=== PATIENT | female | born 1980 | race Caucasian/White ===

== ENCOUNTER 2022-12-18 09:40 | Emergency (ER) | payer BC, SELFPAY ==
[2022-12-18 09:43] VITALS: BP 148/106; PULSE 101; RESP 18; TEMP 37.3; O2SAT 100
[2022-12-18 10:06] LABS: Basophils Percent Auto 0.3 % (0.2-1.2); Eosinophils Percent Auto 0.6 % (0-4.4); Hematocrit 41.2 % (37.0-47.0); Hemoglobin 14.2 g/dL (12.0-15.0); Immature Granulocyte Absolute 0.01 K/mm3 (0.00-0.031); Immature Granulocyte Percent A 0.3 % (0-0.5); Lymphocytes Absolute Auto 0.49 K/mm3 (0.9-3.2); Mean Corpuscular HGB Conc 34.5 g/dl (32-36); Mean Corpuscular Hemoglobin 31.7 pg (26-34); Monocytes Absolute Auto 0.5 K/mm3 (0.1-0.6); Monocytes Percent Auto 15.1 % (2.6-8.5); Neutrophils Absolute Auto 2.5 K/mm3 (1.3-6.7); Neutrophils Percent Auto 69.7 % (45.5-73.1); Platelet Count Result 199 k/mm3 (150-375); Red Blood Count 4.48 M/mm3 (4.2-5.4); Red Cell Distribution Width 13.2 % (11.5-14.5); White Blood Count 3.5 K/mm3 (4.5-10.0)
--- NOTE | 2022-12-18 10:21 | PC.NURSE ---
Pt refuses bp measurement states you cannot use my left arm I have a nexplanon and states You can't put it on my right arm it hurts
--- NOTE | 2022-12-18 10:35 | ED.ABDPAIN ---
HPI - Abdominal Pain General Chief Complaint: Abdominal Pain Stated Complaint: mult. complaints - lower abd pain and facial pain Time Seen by Provider: 12/18/22 10:05 Source: patient Mode of arrival: ambulatory Limitations: no limitations History of Present Illness HPI narrative: This is a 42 year old female that presents to the ER for multiple complaints. Reports pain all over . Reports what largely brought her in though was abdominal pain. Reports a sharp mid-lower abdominal pain. Reports associated fever and nausea. Reports diffuse myalgias. Reports rhinorrhea and congestion. Reports otalgia. Reports a cough. Denies dysuria. Related Data Allergies Allergy/AdvReac Type Severity Reaction Status Date / Time codeine Allergy Anaphylaxis Verified 12/18/22 09:59 mushroom Allergy Unknown Verified 12/18/22 10:00 Review of Systems Review of Systems: CONSTITUTIONAL: Reports fever ENT: Reports rhinorrhea, congestion, sore throat, and otalgia. CARDIOVASCULAR: Denies chest pain, or edema. RESPIRATORY: Reports cough. Denies dyspnea. GASTROINTESTINAL: Reports abdominal pain, nausea. Denies vomiting, or diarrhea. GENITOURINARY: Denies dysuria or hematuria. SKIN: Denies rash MUSCULOSKELETAL: Reports myalgia. All systems reviewed & are unremarkable except as noted in HPI and below PMFSH Past Medical History Medical History (Updated 12/18/22 @ 11:12 by Diana Lester PA-C) No active medical problems Social History Social History (Updated 12/18/22 @ 10:41 by Diana Lester PA-C) Alcohol intake: current Alcohol use details: rarely Exam Narrative: GENERAL: Well-appearing, well-nourished, and in no acute distress. HEAD: Normocephalic, atraumatic. EYES: PERRLA and EOMI. ENT: Nares clear, no rhinorrhea or epistaxis. Mucous membranes moist. Oropharynx without tonsillar hypertrophy exudate or other lesions. Bilateral TMs pearly blanca non-bulging NECK: Supple. No adenopathy or masses. CHEST: Clear to auscultation. No respiratory distress. No wheezes rales or rhonchi HEART: Regular rate and rhythm. No murmur heard. Normal peripheral pulses. ABDOMEN: Soft, nondistended, normal active bowel sounds. Tender to palpation throughout the mid to lower abdomen, without guarding. No CVA tenderness EXTREMITIES: Normal range of motion. No edema. SKIN: Warm, dry, no rash. NEURO: No focal deficits. Alert and oriented x3. PSYCH: Normal mood and affect Course Course Emergency Course: Patient has eloped after being seen by myself before work-up was finished Vital Signs Vital signs: Vital Signs Temperature 99.1 F 12/18/22 09:43 Pulse Rate 101 H 12/18/22 09:43 Respiratory Rate 18 12/18/22 09:43 Blood Pressure 148/106 H 12/18/22 09:43 Pulse Oximetry 100 12/18/22 09:43 Oxygen Delivery Room Air 12/18/22 09:43 Temperature 99.1 F 12/18/22 09:43 Pulse Rate 101 H 12/18/22 09:43 Respiratory Rate 18 12/18/22 09:43 Blood Pressure 148/106 H 12/18/22 09:43 Pulse Oximetry 100 12/18/22 09:43 Oxygen Delivery Room Air 12/18/22 09:43 MDM - Abdominal Pain MDM Narrative Medical decision making narrative: Patient presents to the emergency department with multiple complaints. Reporting pain all over, but her abdominal pain was what brought her in for evaluation. She is afebrile and nontoxic-appearing. Further work-up was ordered. Pending this she walked out after being seen by myself. Differential Diagnosis Differential diagnosis: Likely abdominal pain, acute appendicitis, calculus of kidney, constipation, diverticulitis and small bowel obstruction Lab Data Attestation: I reviewed the patient's lab results. 12/18/22 10:01 12/18/22 10:01 Labs: Lab Results 12/18/22 12/18/22 12/18/22 Range/Units 10:01 10:09 10:45 WBC 3.5 L (4.5-10.0) K/mm3 RBC 4.48 (4.2-5.4) M/mm3 Hgb 14.2 (12.0-15.0) g/dL Hct 41.2 (37.0-47.0) % MCV 92.0 (80-100) fl
[2022-12-18 10:46] LABS: Appearance Urine Clear (Clear); Bacteria Urine Rare /hpf; Bilirubin Urine Negative (Negative); Blood Urine 3+ (Negative); Color Urine Dark Yellow (Yellow); Glucose Urine UA Negative (Negative); Ketones Urine Trace mg/dL (Negative); Leukocyte Esterase Ur Trace LEU/UL (Negative); Nitrate Urine Negative (Negative); Non Pathogenic Casts 0-2; Protein Urine 2+ mg/dL (Negative); Specific Grav Ur 1.025 (1.001-1.035); Squamous Epithelial Cell Urine Moderate /hpf (Few)
[2022-12-18 10:49] LABS: Add Urine Microscopic? YES
[2022-12-18 11:04] LABS: Barbiturate Screen Urine Negative (Negative); Benzodiazepines Screen Urine Negative (Negative)
[2022-12-18 11:12] LABS: Cannabinoid Screen Urine Positive (Negative); Cocaine Screen Urine Negative (Negative); Methadone Screen Urine Negative (Negative); Opiate Screen Urine Negative (Negative); Phencyclidine Screen Urine Negative (Negative)
[2022-12-18 11:15] LABS: Alanine Aminotransferase 25 U/L (6-35); Alkaline Phosphatase 82 U/L (38-126); Anion Gap 2 mmol/L (8-16); Aspartate Amino Transferase 27 U/L (14-36); Bilirubin,Total 0.4 mg/dL (0.2-1.3); Blood Urea Nitrogen 8 mg/dL (7-17); Calcium 8.7 mg/dL (8.4-10.2); Carbon Dioxide 29 mmol/L (22-30); Chloride 101 mmol/L (98-107); Estimated CRCL calculation 104 ml/min; Estimated Glomerular Filt Rate > 60; Glucose 86 mg/dL (65-110); Lipase 68 U/L (23-300); Potassium 3.7 mmol/L (3.4-5.0); Sodium 132 mmol/L (137-145)
[2022-12-18 11:17] LABS: Ethanol < 10 mg/dL (<10)
[2022-12-18 11:20] LABS: Creatine Kinase 73 U/L (30-135)
[2022-12-18 11:23] LABS: Monoscreen Negative (Negative); Negative Monotest Control Negative (Negative); Positive Monotest Control Positive (Positive)
--- NOTE | 2022-12-18 11:25 | PC.NURSE ---
11:15 pt eloped out of department. IV DC'ed prior to pt leaving.
[2022-12-18 11:26] LABS: Strep Group A RT-PCR NOT DETECTED (Negative)
[2022-12-18 11:39] LABS: Influenza A QL RT-PCR Positive (Negative); Influenza B QL RT-PCR Negative (Negative); SARS-CoV-2 RNA PCR Negative (Negative)
[2022-12-18 12:03] LABS: Amphetamine Screen Urine Positive (Negative)
== END 2022-12-18 11:15 | disposition left against medical advice (07) ==
PROVIDERS: Emergency Medicine; Emergency Provider Physician Assistant
DX: R10.30 Lower abdominal pain, unspecified (principal); Z20.822 Contact with and (suspected) exposure to COVID-19
CPT/HCPCS: 36415; 80053; 80307; 81001; 81025; 82550; 83690; 85025; 86308; 87086; 87088; 87636; 87651; 99283

== ENCOUNTER 2024-10-29 15:05 | Emergency (ER) | payer BC, SELFPAY ==
--- NOTE | ~2024-10-29 | XR_ITS ---
CHEST RADIOGRAPH, PA AND LATERAL CLINICAL HISTORY: Abdominal pain. COMPARISON: None available TECHNIQUE: PA and lateral views of the chest. FINDINGS The cardiomediastinal silhouette is enlarged. Hazy opacification of the left hemidiaphragm which may be secondary to overlying soft tissues, as no effusion is detected on lateral view. The remainder of the lungs are clear. IMPRESSION: No focal infiltrate or effusion. Reviewed, dictated and finalized at location A.
--- NOTE | ~2024-10-29 | CT_ITS ---
CT abdomen pelvis w con Ordering provider: Davonte Vallejo MD History: 43 years Female with . right sided AP, recent . Comparison: None. Technique: CT abdomen and pelvis with IV and without oral contrast. Automated exposure control and it erative reconstruction technique were employed. The dose-length product was 1576.77 mGy-cm. 100 mL Om nipaque 350 was given IV. Findings: VISUALIZED LOWER CHEST: Subsegmental atelectatic changes in the lung bases. UPPER ABDOMINAL ORGANS: Liver: Hepatomegaly. Gallbladder: Normal. Spleen: Normal. Stomach/duodenum: Normal. Pancreas: Normal. Adrenals: Normal. Kidneys: Normal. PELVIC ORGANS: The bladder is underfilled. Enlarged uterus which is normal for stage. BOWEL AND MESENTERY: Colon: No evidence of diverticulitis. Fecal material is loaded in the colon.. No evidence of appendic itis. Small Bowel: Normal. No obstruction. Peritoneum/mesentery: No free air or free fluid. No mesenteric lymphadenopathy. RETROPERITONEUM: Mild atheromatous disease of the distal abdominal aorta and right iliac artery. No retroperitoneal lymphadenopathy. MUSCULOSKELETAL: Superficial soft tissues: Edema in the subcutaneous tissues with postoperative changes in the anterio r abdominal wall. Small fat-containing umbilical hernia is noted. Otherwise, The superficial soft tis sues are normal. Bones: Normal spine. IMPRESSION: 1. No evidence of appendicitis, diverticulitis or intestinal obstruction. 2. Constipation. 3. Enlarged uterus. 4. Hepatomegaly. Reviewed, dictated and finalized at location A.
[2024-10-29 15:07] VITALS: BP 142/95; PULSE 107; RESP 18; TEMP 36.4; O2SAT 100
--- OUTSIDE RECORDS SUMMARY | 2024-10-29 15:08 | XMS_ITS | Clinical Summary ---
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[employer] Gender Identity Not on file Sexual Orientation Not on file Plan of Treatment Health Maintenance Due Date Last Done Comments Hepatitis C Virus (HCV) Screening 1982 TdaP Immunization 1982 Hepatitis B Immunization (1 of 3 - 19+ 3-dose series) 2001 Pap Smear 12/14/2003 Cervical Cancer Screening (CCS) 2012 HPV/Cotest 2012 Discussion re Starting/Frequency of Mammograms 2022 Influenza Immunization (#1) 2024 05/08/2010 SARS-COV-2 Immunization ( - season) 2024 04/05/2021 Respiratory Syncytial Virus (RSV) Immunization (Adult) (1 - 1-dose 75+ series) 2057 DTaP/Tdap/Td Immunization Discontinued 1997, 08/14/1987, 08/13/1983, Additional history exists Meningococcal Immunization (ACWY) Aged Out No longer eligible based on patient's age to complete this topic Pneumococcal Immunization Combined Aged Out No longer eligible based on patient's age to complete this topic Rotavirus Immunization Aged Out No lo nger eligible based on patient's age to complete this topic
--- NOTE | 2024-10-29 15:35 | ECG_ITS ---
Test Date: 2024-10-29 15:58:08 Measurements Intervals [place] Rate: 101 P: 47 IA: 157 QRS: 73 QRSD: 86 T: 46 QT: 341 QTc: 443 Interpretive Statements SINUS TACHYCARDIA ABNORMAL RHYTHM ECG No previous ECG available for comparison Electronically Signed On 10-30-2024 17:06:22 CDT by Jagjit Marquis M.D.
--- NOTE | 2024-10-29 15:58 | ED_ITS ---
HPI - Abdominal Pain General Chief Complaint: Abdominal Pain Stated Complaint: RUQ pain, 4 days post [id number] swelling Time Seen by Provider: 10/29/24 15:44 History of Present Illness HPI narrative: Patient is a 43-year-old female who presents ER with multiple complaints. Main complaint is right-sided abdominal pain. Chronic throughout her . Recent delivery 4 days ago after emergency due to placental abruption. Baby is currently in the NICU at [facility]. Patient continues to have lochia. She has developed new lower extremity edema. Has persistent discomfort along the right side of her abdomen your member abdomen than the lower abdomen. She also has concerns about disruption in her wound on the right side. No drainage or blood that she has noticed. Patient is attempting to breastfeed but has not been able to get any milk to come out. Related Data Allergies Allergy/AdvReac Type Severity Reaction Status Date / Time codeine Allergy Anaphylaxis Verified 12/18/22 09:59 mushroom Allergy Unknown Verified 12/18/22 10:00 Review of Systems 2 Review of Systems: All systems reviewed & are unremarkable except as noted in HPI and below Constitutional: Constitutional: Reports no additional constitutional complaints ENT: Reports system reviewed and no additional complaints, except as documented Cardiovascular: Cardiovascular: Reports no additional cardiovascular complaints Respiratory: Respiratory: Reports no additional respiratory complaints Gastrointestinal: Gastrointestinal: Reports no additional gastrointestinal complaints [facility] Surgical History Surgical History (Updated 10/29/24 @ 16:00 by Davonte Vallejo MD) History of tonsillectomy History of section Social History Social History (Updated 12/18/22 @ 10:41 by Diana Lester PA-C) Alcohol intake: current Alcohol use details: rarely Exam 2 Narrative: GENERAL: Well-appearing, well-nourished, and in no acute distress. HEAD: Normocephalic, atraumatic. ENT: Mucous membranes moist. CHEST: Clear to auscultation. No respiratory distress. HEART: Regular rate and rhythm. Normal peripheral pulses. ABDOMEN: Soft, mild right-sided tenderness in the upper and lower quadrant, no discoloration of the abdominal wall, nondistended. Surgical wound be normal appearing. EXTREMITIES: Normal range of motion. +1 edema. SKIN: Warm, dry, no rash. NEURO: Alert and oriented x3. PSYCH: Normal mood and affect. Course Course Emergency Course: Patient resting comfortably and is already got herself dressed because she heard she was constipated. Discussed with her that she has some abnormalities in her liver enzymes and her blood pressure is elevated I would like to touch base with the OB group over at [facility] as she could be developing some preeclampsia. I do not have baseline blood pressures for her. There is no protein in her urine her platelets are normal. BNP slightly elevated. 190: I have just gotten off the phone with Dr. Machado with MFM at [facility]. The patient presented has history of preeclampsia with severe features. We have discussed lab and imaging results as well as patient presentation and exam. We would recommend the patient receive nifedipine 30 mg XL once daily. They will contact the patient for follow-up next week as her originally scheduled follow-up of 11/11/2024 is too far out. Patient has been educated that when talking to nurses at the NICU that they can help her get to the women's assessment center if she is having any additional issues in feel she needs to be evaluated. Patient and her are being quite hostile and are wanting to leave the emergency department as she does not feel like she has answers to her abdominal pain. Vital Signs Vital signs: Vital Signs Temperature 97.6 F 10/29/24 15:07 Pulse Rate 107 H 10/29/24 15:07 Respiratory Rate 18 10/29/24 15:07 Blood Pressure 142/95 H 10/29/24 15:07 Pulse Oximetry 100 10/29/24 15:07 Oxygen Delivery Room Air 10/29/24 15:07 Temperature 98.0 F 10/29/24 17:51 Pulse Rate 103 H 10/29/24 17:51 Respiratory Rate 20 10/29/24 17:51 Blood Pressure 141/87 H 10/29/24 17:51 Pulse Oximetry 100 10/29/24 17:51 Oxygen Delivery Room Air 10/29/24 15:07 MDM - Abdominal Pain Lab Data 10/29/24 16:04 10/29/24 16:04 Labs: Lab Results 10/29/24 10/29/24 10/29/24 Range/Units 16:04 16:31 16:39 WBC 13.3 H (4.5-10.0) K/mm3 RBC 3.38 L (4.2-5.4) M/mm3 Hgb 10.7 L D (12.0-15.0) g/dL Hct 33.0 L (37.0-47.0) % MCV 97.6 (80-100) fl MCH 31.7 (26-34) pg MCHC 32.4 (32-36) g/dl RDW 14.7 H (11.5-14.5) % Plt Count 296 (150-375) k/mm3 MPV 10.2 (7.4-10.4) fl Immature Gran % (Auto) Not Reportable Neut % (Auto) Not Reportable Lymph % (Auto) Not Reportable [place] % (Auto) Not Reportable Eos % (Auto) Not Reportable Baso % (Auto) Not Reportable Lymph # (Auto) Not Reportable [place] # (Auto) Not Reportable Eos # (Auto) Not Reportable Baso # (Auto) Not Reportable Abs Immat Gran (auto) Not Reportable Absolute Neuts (auto) Not Reportable Absolute Nucleated RBC Not Reportable Total Counted 100 Neutrophils % (Manual) 69 (46-73) % Band Neutrophils % 1 (0-6) % Lymphocytes % (Manual) 18 (18-44) % Monocytes % (Manual) 9 (3-9) % Eosinophils % (Manual) 3 (0-4) % Basophils % (Manual) 0 (0-1) % Nucleated RBC % Not Reportable Abs Neuts (Manual) 9.31 H (1.7-7.2) K/mm3 Abs Lymphs (Manual) 2.39 (1.1-4.5) K/mm3 Abs Monocytes (Manual) 1.19 H (0.1-0.90) K/mm3 Absolute Eos (Manual) 0.39 (0.02-0.50) K/mm3 Abs Basophils (Manual) 0.00 (0.0-0.1) K/mm3 Nucleated RBCs 2 % Atypical Lymphocytes Present Platelet Estimate Adequate (Adequate) Polychromasia 1+ Anisocytosis 1+ Schistocytes None seen Sodium 135 L (137-145) mmol/L Potassium 3.9 (3.4-5.0) mmol/L Chloride 103 (98-107) mmol/L Carbon Dioxide 25 (22-30) mmol/L Anion Gap 7 (4-12) mmol/L BUN 11 (7-17) mg/dL Creatinine 0.85 (0.7-1.0) mg/dL Estim Creat Clear Calc 98 ml/min Estimated GFR > 60 (59 - ) Glucose 89 (65-110) mg/dL Calcium 8.9 (8.4-10.2) mg/dL Total Bilirubin 0.3 (0.2-1.3) mg/dL AST 78 H (14-36) U/L ALT 69 H (6-35) U/L Alkaline Phosphatase 115 (38-126) U/L NT-Pro-B Natriuret Pep 429 H (19.9-100) pg/mL Total Protein 7.0 (6.3-8.2) g/dL Albumin 3.3 L (3.5-5.1) g/dL Lipase 46 (23-300) U/L Urine Color Yellow (Yellow) Urine Appearance Clear (Clear) Urine pH 7.5 (5.0-9.0) Ur Specific [place] 1.013 (1.001-1.035) Urine Protein Negative (Negative) mg/dL Urine Glucose (UA) Negative (Negative) mg/dL Urine Ketones Negative (Negative) mg/dL Ur Blood (Man) 3+ H (Negative) Urine Nitrate Negative (Negative) Urine Bilirubin Negative (Negative) Urine Urobilinogen 0.2 (<2.0) mg/dL Leukocyte Esterase Rfl Trace H (Negative) MAGALIE/UL Urine RBC >100 H (0-2) /hpf Urine WBC 0-5 (0-3) /hpf Ur Squamous Epith Cells Occasional (Few) /hpf Urine Bacteria None seen /hpf Urine Casts 0-2 POC Urine HCG, Qual Negative (Negative) Imaging Data Radiologist's impression: ITS Impressions Chest X-Ray 10/29/24 16:15 IMPRESSION: No focal infiltrate or effusion. Abdomen/Pelvis CT 10/29/24 17:05 IMPRESSION: 1. No evidence of appendicitis, diverticulitis or intestinal obstruction. 2. Constipation. 3. Enlarged uterus. 4. Hepatomegaly. 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 They will reach out to you to schedule a close follow-up appointment for next week. You are to start taking nifedipine 30 mg XL daily. Go to limits assessment center at [facility] if you have any additional issues. Patient Language: Barbadian Prescriptions: New nifedipine 30 mg tablet extended release 30 mg PO DAILY Qty: 10 0RF docusate sodium [Colace] 100 mg capsule 100 mg PO BID Qty: 14 0RF Follow-up/Referrals: [facility]aternal Medicine [Other] - 1 Week PHYSICIAN NOT ON STAFF,NONSTAFF [Primary Care Provider] -
[2024-10-29 16:14] LABS: Hemoglobin 10.7 g/dL (12.0-15.0); Mean Corpuscular HGB Conc 32.4 g/dl (32-36); Mean Corpuscular Hemoglobin 31.7 pg (26-34); Mean Corpuscular Volume 97.6 fl (80-100); Mean Platelet Volume 10.2 fl (7.4-10.4); Platelet Count Result 296 k/mm3 (150-375); Red Blood Count 3.38 M/mm3 (4.2-5.4); Red Cell Distribution Width 14.7 % (11.5-14.5); White Blood Count 13.3 K/mm3 (4.5-10.0)
[2024-10-29] MEDS: HYDROmorphone HCL INJ (*CRX) 2 MG/ML VIAL 0.5 MG IV PUSH (16:22)
[2024-10-29] MEDS: ONDANSETRON INJ 4 MG/2 ML VIAL IV PUSH (16:22)
--- OUTSIDE RECORDS SUMMARY | 2024-10-29 16:24 | XMS_ITS | Clinical Summary ---
Author Organization [facility] Address [address] [place] [address] Care Team Providers Care Sterile Proc Tech Name Role Phone No, Physician Primary Care Provider [phone] Allergies Active Allergy Reactions Criticality Noted Date Comments Codeine Anaphylaxis High 10/21/2024 Mushroom Anaphylaxis High 10/21/2024 Medications comb no.42-folic acid 1.4 mg tablet,chew,IR & DR,biphase Take by mouth daily Active acetaminophen 500 mg capsuleIndicati ons:Pain Take 2 capsules (1,000 mg total) by mouth every 6 (six) hours 60 tablet 5 Active docusate sodium (COLACE) 100 mg capsuleIndicati ons:constipatio n,Stool Softener Take 1 capsule (100 mg total) by mouth 2 (two) times a day 60 capsule 5 Active polyethylene glycol (MIRALAX) 17 gram/dose bulk powderIndicatio ns:constipation Take 17 g by mouth daily 517 g 5 Active senna (SENOKOT) 8.6 mg tabletIndicatio ns:constipation Take 1 tablet by mouth 2 (two) times a day 60 tablet 5 10/29/19 26 Active ibuprofen (ADVIL,MOTRIN) 600 mg tabletIndicatio ns:Cramps Take 1 tablet (600 mg total) by mouth every 6 (six) hours 60 tablet 5 Active oxyCODONE (ROXICODONE) 5 mg immediate release tabletIndicatio ns:Pain Take 1 tablet (5 mg total) by mouth every 3 (three) hours as needed for pain 12 tablet 5 Active aspirin 81 mg enteric coated tablet Take 2 tablets (162 mg total) by mouth daily 10/29/19 25 Discontinu ed(Stop Taking at Discharge) Active Problems Problem Noted Date Diagnosed Date Placental abruption in third trimester 5 Encounter for routine follow-up 10/25 Overview (10/28/2024): # ID: Afebrile. No signs/symptoms of infection. #Upper respiratory symptoms: respiratory swab pending. # Heme: Hgb 12.1> QBL 1360 mL. Hemodynamically stable. POD1 Hgb 10.8 # CV/Pulm: Pre-eclampsia without severe features. Currently on no meds. Asymptomatic. Enrolled in remote BP monitoring. Text received # GI/: Tolerating PO. Voiding spontaneously. Persistent RUQ pain which she had prior to delivery. RUQ ultrasound 09/09/2024. No cholelithiasis or acute cholecystitis. Mild hepatic steatosis. Patient was scheduled for an MRI outpatient on 10/29, but per the patient was discontinued. MRI ordered. # Pain: incisional pain improving with above regimen. See above for RUQ pain. # Carpal tunnel: OT ordered for wrist splints. For additional supportive measures. # MOC: Consents signed at OSH for tubal, records not available at admission. Patient states partner has had a vasectomy. # MOF: . Urine drug screen: Verbal Consent Obtained. # Post DVT prophylaxis: The patient has the following MAJOR risk factors BMI >/= 40 and the following MINOR risk factors delivery. enoxaparin 40 mg BID ordered for VTE prophylaxis. # Disposition: Follow up task sent to [facility] scheduling pool for appointments in 2 weeks. They are enrolled in remote blood pressure monitoring for their BP check. Desires discharge home today. Pending MRI Abdominal pain complicating 10/22/2024 Overview (10/22/2024): History RUQ pain throughout the that the patient localizes to the skin. LFTs normal, RUQ US with no cholelithiasis or sonographic evidence for acute cholecystitis. Mild hepatic steatosis. Exam with allodynia of overlying skin, no palpable mass Given duration of symptoms, unlikely to be related to preeclampsia diagnosis. Will follow-up imaging studies Plan [] Abdominal MRI ordered by primary scheduled 10/29 (under patient's other chart ) Excessive growth affec ting management of in third trimester 10/22/2024 Overview (10/22/2024): Plan [] Serial growth ultrasounds [] Shoulder dystocia counseling if patient is a candidate for vaginal (currently with previa) Polyhydramnios in third trim arminda, not applicable or unspecified fetus 10/22/2024 Overview (10/22/2024): History - Diagnosed 10/21/24 by MATEO 25.3 Counseling Discussed with patient that polyhydramnios is an abnormal increase in amniotic fluid volume and complicates 1-2% of ndiaye pregnancies.In twin gestations, polyhydramnios is more common and occurs primarily due to complications of monochorionic placentation. Although mild polyhydramnios is most commonly idiopathic, the 2 most common pathologic causes of polyhydramnios are maternal diabetes mellitus and anomalies. Other causes of polyhydramnios include congenital infection and alloimmunization. Idiopathic polyhydramnios accounts for approximately 60-70% of cases of polyhydramnios. The degree of polyhydramnios is associated with higher likelihood of an underlying anomaly. Polyhydramnios may resolve in up to 1/3 of cases when mild. Plan [] Genetics: declines [] Serial assessment of MATEO AMA (advanced maternal age) multigravida 35+, third trimester 10/19/2024 Overview (10/22/2024): Age at JEAN PAUL: 44 Counseling 10/22/2024: We discussed that advanced maternal age (AMA) is associated with increased risks of spontaneous , aneuploidy, gestational diabetes, and hypertensive disorders of . Additionally, we discussed the added risks for individuals over the age of 40 years, including growth restriction and stillbirth. We discussed genetic screening and diagnostic testing options, as well as the risks and benefits of each. For the increased risk of preeclampsia, we recommend starting low dose aspirin at 12 weeks daily if other moderate risk factors are present. Maternal age-related risks of aneuploidy with an age of 44 at term include a 1:54 risk of trisomy 21 and a 1:38 risk of any chromosomal abnormality. Plan: [x] Genetic screening plan: declines s/p counseling [x] Low dose ASA starting at 12 weeks Obesity complicating [facility] 10/19/2024 Overview (10/22/2024): Pre- BMI: >40 Counseling 10/22/2024: Obesity in (BMI >30) is associated with increased risks. Maternal risks include higher rates of preeclampsia, gestational diabetes, and section due to labor abnormalities. risks include anomalies, growth abnormalities ( growth restriction and macrosomia), and stillbirth. Maternal BMI can impact the ability to monitor the heart rate comprehensively during labor and delivery. Recommended weight gain is a total of 11-20 lbs, with 1-4 lbs in the 1st trimester and 0.5 lb/week in the 2nd and 3rd trimesters. Plan: [x] Low dose ASA starting at 12 weeks [] Specialized anatomic survey at 18-22 weeks- incomplete [] Growth ultrasounds, testing, and delivery timing per recommendations for preeclampsia Supervision of high-risk , [facility] ter 10/19/2024 Overview (10/22/2024): [] OB consult only, [x] Co-management vs. [] Full MFM Care; [] Red Team [] Blue Team Referring Provider: Génesis Melara [phone] [] or Medicare Insurance [x] Dating Criteria: US 08/16/24 with JEAN PAUL 12/29/24 [x] Labs: Rh [A+], Ab [negative], Rubella [immune], HIV [non-reactive], HepBSAg [non-reactive], HepBSAb [not done], HepBCAb [not done], RPR [non- reactive], Hep C [non-reactive], Varicella [positive], GC/CT [negative/negative] [] Aneuploidy Screening: declines [] Carrier Screening: declines [x] Hgb electrophoresis: 08/12/24: normal phenotype [x] CBC/Hgb: 12.9/37.9/plt 237 [] Early 1hr GTT (if indicated): [x] UCx: 08/12/24: no growth [] Pap: collected 10/22 [x] LD ASA (if indicated): [] EPDS [ ]; PNBHS referral (if indicated): 2nd Trimester [] Anatomy ultrasound: [x] CBC/1hr gtt at 24-28wks: 10/12/24: 13.6/40.4/plt 237, GTT 87, RPR [non- reactive], HIV [non-reactive] [] Rhogam at 28 wks (if Rh neg): 3rd Trimester [] CBC/HIV/RPR/T&S: [] GBS: [] GC/CT (if indicated): [] testinx weekly Counseling [] MOD: TBD (previa) [] Place of delivery: [facility] [] Epidural: desires [] Accepts Blood Products: [] Stop ASA: [] MOC: desires BTL if she requires CS, has had vasectomy [] Method of feeding: breast [] Commercial Drafter (specifically which provider): [] PP Depression Discussed: [] PP visits scheduled: Vaccines [] Flu Shot (Feb-May): [] COVID vaccine: [] Tdap (27-36wks): please discuss at next visit [] RSV vaccine (32-36wks): [] PP HPV vaccine counseling (<=26 yo): Marginal placenta previa 10/19/2024 Overview (10/22/2024): Placenta previa persistent on US 10/31/24 Plan [] Re-assess placental location at next growth US Pre-eclampsia affecting , antepartum Overview (10/22/2024): Elevated blood pressures at visits 09/21/24, 10/14/24, 10/21/24 All other blood pressures outside of and <20 weeks normotensive UPC 0.643 10/14/24 (no baseline available Counseled patient that her newly elevated blood pressures and proteinuria in the third trimester in the absence of a diagnosis of chronic hypertension is most consistent with the diagnosis of preeclampsia. We reviewed the signs and symptoms of preeclampsia and gave the patient hospital precautions. She has a blood pressure cuff at home that she will use daily. We reviewed the plan below: Plan - serial growth ultrasounds q3 weeks - weekly visits with CBC/CMP - Twice weekly testing - Delivery at 37 weeks (or sooner if indicated) Encounters Date Type Department Care Team Description 10/29/2024 Encounter [facility] [address] [place] [address] 10/25/2024 6:00 PM CDT - 10/25/2024 8:30 PM CDT Surgery [address] [phone] Eufemia Dean MD SECTION 10/25/2024 5:50 PM CDT Anesthesia Event [address] [address] Sommer Torres MD Johnson, Christine Anne, CRNA 10/25/2024 5:46 PM CDT - 10/28/2024 5:00 PM CDT Hospital Encounter [address] [phone] Jacobo Andre MD Discharge Disposition: Discharge to home or self care 10/25/2024 3:15 PM CDT - 10/25/2024 11:59 PM CDT Hospital Encounter [facility] [address] [place] [address] [place] [id number] Supervision of high-risk , unspecified trimester; AMA (advanced maternal age) multigravida 35+, third trimester; Obesity affecting in third trimester, unspecified obesity type; Pre-eclampsia affecting , antepartum; Marginal placenta previa Discharge Disposition: Discharge to home or self care 10/25/2024 3:00 PM CDT Clinical Support [facility] [address] [place] [address] Medical Office Building [address] [place] [phone] AMA (advanced maternal age) multigravida 35+, third trimester (Primary Dx); Supervision of high-risk , third trimester; Pre-eclampsia affecting , antepartum; Polyhydramnios in third trimester, not applicable or unspecified fetus; Obesity affecting in third trimester, unspecified obesity type 10/24/2024 Nurse Triage [facility] [address] [place] [address] Elly Christina RN 10/21/2024 4:24 PM CDT - 10/21/2024 11:59 PM CDT Hospital Encounter [facility] [address] [place] [address] Supervision of high-risk , unspecified trimester; AMA (advanced maternal age) multigravida 35+, third trimester Discharge Disposition: Discharge to home or self care 10/21/2024 3:30 PM CDT Office Visit [facility] Maternal- Medicine [facility] [address] [facility] [address] [place] [address] AMA (advanced maternal age) multigravida 35+, third trimester (Primary Dx); Supervision of high-risk , unspecified trimester; Obesity affecting in third trimester, unspecified obesity type; Pre-eclampsia affecting , antepartum; Marginal placenta previa; Abdominal pain complicating ; Excessive growth affecting management of in third trimester, fetus 1 of multiple gestation; Polyhydramnios in third trimester, not applicable or unspecified fetus; Supervision of high-risk , third trimester 10/21/2024 1:50 PM CDT - 10/21/2024 11:59 PM CDT Hospital Encounter [facility] [address] [facility] [address] [place] [address] Supervision of high-risk , unspecified trimester Discharge Disposition: Discharge to home or self care 10/19/2024 Telephone [facility] [address] [place] [address] Coleen Carrington 10/18/2024 Telephone [facility] Ob[facility]etrics [facility]necology [address] [place] [address] Coleen Carrington 10/15/2024 Telephone [facility] Maternal- Medicine [address] [facility] 7th Floor [address] [place] [phone] Tracy Yuen, [facility] Scheduling US/OB Consult from Last 3 Months Surgical History Surgery Date Site/Laterality Comments EYE SURGERY TONSILLECTOMY Social History Tobacco Use Types Packs/Day Years Used Date Smoking Tobacco: Never Assessed [facility] Utilities Answer Date Recorded In the past 12 months has th e electric, gas, oil, or water company threatened to shut off services in your home? No 10/28/2024 Social Connection and Isolat ion Panel [NHANES] Answer Date Recorded In a typical week, how many times do you talk on the phone with family, friends, or neighbors? More than three times a week 10/28/2024 How often do you get togethe r with friends or relatives? Twice a week 10/28/2024 How often do you attend chur ch or mormonism services? Never 10/28/2024 Do you belong to any clubs o r organizations such as sikhism groups, unions, fraternal or athletic groups, or school groups? No 10/28/2024 How often do you attend meet ings of the clubs or organizations you belong to? Never 10/28/2024 Are you , , di vorced, , never , or living with a partner? 10/28/2024 Overall Financial Resource Strain (CARDIA) Answe r Date Recorded How hard is it for you to pa y for the very basics like food, housing, medical care, and heating? Not hard at all 10/28/2024 Hunger Vital Sign Answer Date Recorded Within the past 12 months, y ou worried that your food would run out before you got the money to buy more. Never true 10/29/19 25 Within the past 12 months, t he food you bought just didn't last and you didn't have money to get more. Never true 10/28/2024 PRAPARE - Transportation Answer Date Re corded In the past 12 months, has l ack of transportation kept you from medical appointments or from getting medications? No 10/08 In the past 12 months, has l ack of transportation kept you from meetings, work, or from getting things needed for daily living? No 10/28/2024 Housing Stability Vital Sign Answer Moises e Recorded In the last 12 months, was t here a time when you were not able to pay the mortgage or rent on time? No 10/28/2024 In the past 12 months, how m any times have you moved where you were living? 1 10/28/2024 At any time in the past 12 m [place], were you homeless or living in a longterm (including now)? No 10/28/2024 Personal Safety Answer Date Recorded Have you ever been in or are you currently in a harmful physical or emotional relationship or is someone making you feel afraid or unsafe? Denies 10/25/2024 Comments No Sex and Gender Information Value Date Recorded Sex Assigned at Not on file Legal Sex Female 3:36 PM CDT Gender Identity Not on file Sexual Orientation Not on file Obstetrics History Para Term AB IAB SAB Ectopic Multiple Livin g Live Births 3 2 2 1 1 0 2 2 Date Outcome GA Total Labor Labor/2nd/3rd Weight Sex Type Anes PTL Franklyn A1 A5 Name Clin SAB 1999 35w 0d 3.317 kg (7 lb 5 oz) M Vagina l Livin g 2024 30w 5d 0h 01m 0h 01m 1.986 kg (4 lb 6.1 oz) F C-Sect ion Genera l Y Livin g 1 5 Olivi a Garne t Utter back Huysm david, Louis et MD Sachin Complications:Abruptio Place nta Delivery Location:[facility] Main C ampus ([facility] L AND D PROCEDURE) Summary Episode Dates Number of Fetuses Estimated Date of Delivery 10/19/2024 - Present (10/29/2024) 1 12/29/2024 (set by Dana Aguirre MD on 10/22/2024 based on Ultrasound on 08/16/2024) Dating Summary Based On JEAN PAUL GA Diff Last Menstrual Period on 02/20/2024 11/26/2024 +4w5d Ultrasound on 08/16/2024 12/29/2024 Working GA:20w5d Ultrasound on 10/12/2024 12/21/2024 +1w1d GA:30w0d Vitals Pregravid Weight Height TWG (As of 10/29/2024) Pregrav id BMI 160 cm (5' 3 ) Date GA Fund Present FHR Mvmt BP Weight Edema Alb Glu Ket Dil/ Eff/Sta 5 30w1d Inpatient data not displayed here. See encounter summary. 05/19/202 5 30w5d Inpatient data not displayed here. See encounter summary. 5 30w5d Inpatient data not displayed here. See encounter summary. Notes Progress Notes - Hospital En counter - 10/28/2024 - GA:30w5d 10/28/2024 - 30w5d - Diana Nassar OT Occupational Therapy Occupational Therapy Orthosis Evaluation Note NOTE: This is a summary note of the menjivar components of the orthosis evaluation session. For full details, review chart for all flowsheets documented on by this occupational therapist on this date. Care plan progress documented in Care Plan Activity. For questions, please review the treatment team and send a SecureChat message or call the occupational therapist(s) currently assigned to this patient. If an occupational therapist is not assigned to this patient, please call [phone]. Splint Type: bilateral prefabricated wrist cock up orthosis, right resting hand orthosis Splint location: see above Position: - Resting hand orthosis: wrist in neutral, MPs and IPs in functional resting position, thumb between palmar and radial abduction - Wrist cock up orthosis: wrist in extension Treatment/purpose: Orthosis evaluation and instruction Wear schedule: Pt to wear bilateral wrist cock up orthoses as needed during functional activity and rest for relief of symptoms. Pt to wear right wrist cock up orthosis as needed during sleep to relieve symptoms. Home exercise program: none Frequency: 4-5x/week Follow-up date: Pt discharging today. OT recommends follow-up in outpatient hand therapy (OT notifies MD of recommendation via secure chat) Upper Extremity Assessment Hand dominance: RHS Range of motion/Strength: deferred Sensation: numbness/tingling in median nerve distribution bilaterally Coordination: deferred Tone: deferred Patient tolerated fitting without pain. Patient without redness or irritation at bony prominences or areas in contact with orthosis. Patient verbalized comfort with orthosis donned. Patient agreeable to wear schedule and precautions. Handouts left in room for wear schedule, cleaning instructions, skin precautions and contact information. Patient verbalizes understanding however would benefit from reinforcement. 10/28/24 1630 General Chart Reviewed Yes Session Type: Specialty Group Orthosis Evaluation Safe Environment Arm band checked;Session completed bedside;Patient found sitting at edge of bed Subjective Agreeable to Therapy Family/Caregiver Present No Occupational Therapy-Patient Goal Pt agreeable to orthotic POC Precautions Precautions Abdominal Weight Bearing Restrictions Yes Precaution Handout Issued Yes Precaution Comments Reviewed precautions and wear schedule. Patient verbalized understanding but would benefit from reinforcement. Pain Assessment Pain Assessment 0-10 Pain Score 0 - No pain Safe Environment End of Therapy Session Safe Environment End of Therapy Session Call light within reach;Overbed table within reach;Patient left sitting at edge of bed Plan Plan If this is the last note, consider this the discharge summary;Plan of care initiated OT Time Calculation OT Start Time 1630 OT Stop Time 1650 OT Time Calculation (min) 20 min 10/28/2024 - 30w5d - Diana Nassar OT Occupational Therapy 10/28/24 1401 General OT Missed Visit Reason Unavailable (Patient not in room. OT reached out to the three nurses signed in to ask them to notify OT when pt returns to room) 10/28/2024 - 30w5d - Zoraida Schwartz NP Post Progress Note Admission Date: 10/25/2024 GIA Jaramillo is a 43 y.o. postop day 3 s/p . Pain: moderately Controlled Bleeding: lochia minimal Oral Intake: taking regular diet Voiding: without difficulty Bowel function: flatus Ambulating: yes Mood: stable Feeding: and pumping No acute events overnight. Denies FUENTES, visual changes, chest pain, SOB, or RUQ pain. Denies lightheaded or dizziness. Patient reports her incisional pain has improved with the medication, but still reporting having RUQ pain and rating it a 10/10. 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 She then noticed bruising to the area that has since went away. Patient states this RUQ pain has been persistent since this incident in and has not improved at all since delivery. She also is requesting to have wrist splints for her carpal tunnel. Denies other concerns. OBJECTIVE Vitals: Temp Min: 36.3 C (97.3 F) Max: 36.7 C (98.1 F) Pulse Min: 95 Max: 113 BP Min: 114/73 Max: 132/77 Resp Min: 18 Max: 19 SpO2 Min: 97 % Max: 100 % Physical Exam General: No acute distress. Neurologic: Alert and oriented Lungs: Non-labored. Abdomen: Soft, non distended, appropriately tender to palpation. Fundus firm below umbilicus. Incision: incision well approximated with steristrips in place - c/d/i incisional care and s/s infection reviewed with patient. Extremities: Warm and well-perfused. 1+ bilateral lower extremity edema with no calf tenderness. KATHI hose ordered. Encouraged increased elevation and water intake. Pelvic: Deferred. Lab Review: Lab Results Component Value Date WBC 22.23 (H) 10/26/2024 HGB 10.8 (L) 10/26/2024 HCT 29.9 (L) 10/26/2024 MCV 91.2 10/26/2024 LABPLAT 190 10/26/2024 Lab Results Component Value Date ABORH A Positive 10/25/2024 SCRIBEDABORH A+ 08/12/2024 IDCOOMB Negative 10/25/2024 SCRINDANTIGL negative 08/12/2024 [id number] Nonreactive 10/25/2024 [id number] Nonreactive 10/12/2024 LABRPR Nonreactive 10/25/2024 SCRRPR Non-Reactive 10/12/2024 SCRRUBELIGG Immune 08/12/2024 GC negative 08/12/2024 Current Meds: Scheduled Medications acetaminophen, 1,000 mg, oral, Q6H docusate sodium, 100 mg, oral, BID enoxaparin, 40 mg, subcutaneous, Q12H MECHELLE gabapentin, 300 mg, oral, TID ibuprofen, 600 mg, oral, Q6H lidocaine, 2 patch, transdermal, Q24H viatmin, 1 tablet, oral, Daily polyethylene glycol, 17 g, oral, Daily senna, 1 tablet, oral, BID sodium chloride 0.9%, 0.5-20 mL, intra-catheter, Q8H MECHELLE PRN Medications benzocaine-menthoL cyclobenzaprine hydrocortisone kkuwelg-nufux-nuloesk naloxone ondansetron ODT OR ondansetron oxyCODONE phenoL simethicone sodium chloride 0.9% varicella zoster ASSESSMENT/PLAN Manan Jaramillo is a 43 y.o. female postop day 3 s/p . Problem Encounter for Routine Follow-Up # ID: Afebrile. No signs/symptoms of infection. #Upper respiratory symptoms: respiratory swab pending. # Heme: Hgb 12.1> QBL 1360 mL. Hemodynamically stable. POD1 Hgb 10.8 # CV/Pulm: Pre-eclampsia without severe features. Currently on no meds. Asymptomatic. Enrolled in remote BP monitoring. Text received # GI/: Tolerating PO. Voiding spontaneously. Persistent RUQ pain which she had prior to delivery. RUQ ultrasound 09/09/2024. No cholelithiasis or acute cholecystitis. Mild hepatic steatosis. Patient was scheduled for an MRI outpatient on 10/29, but per the patient was discontinued. MRI ordered. # Pain: incisional pain improving with above regimen. See above for RUQ pain. # Carpal tunnel: OT ordered for wrist splints. For additional supportive measures. # MOC: Consents signed at OSH for tubal, records not available at admission. Patient states partner has had a vasectomy. # MOF: . Urine drug screen: Verbal Consent Obtained. # Post DVT prophylaxis: The patient has the following MAJOR risk factors BMI >/= 40 and the following MINOR risk factors delivery. enoxaparin 40 mg BID ordered for VTE prophylaxis. # Disposition: Follow up task sent to [facility] scheduling pool for appointments in 2 weeks. They are enrolled in remote blood pressure monitoring for their BP check. Desires discharge home today. Pending MRI REJI Larkin 10/28/24 Cosigned by Ruddy Vallejo MD at 10/28/2024 12:10 PM CDT Associated attestation - Ruddy Vallejo MD - 10/28/2024 12:10 PM CDT The resident/fellow saw and examined the patient, we discussed their findings, and I am in agreement with the plan based on the discussion with the resident/fellow. I did not personally examine the patient. 10/27/2024 - 30w5zandra - Radha Hernández, PT Physical Therapy Evaluation Note NOTE: This is a summary note of the menjivar components of the evaluation session. For full details, review chart for all flowsheets documented on by this physical therapy clinician on this date. Vital signs are documented in the vital signs flowsheet. For questions, please review the treatment team and contact the PT or ROLL SKINNER currently assigned to this patient. If a physical therapy clinician is not assigned to this patient, please call [phone]. 10/27/24 1352 General Chart Reviewed Yes Session Type Evaluation (and discharge) PT Received On 10/27/24 Safe Environment Arm band checked;Gait belt not utilized, see comment;Patient found sitting in chair Subjective Agreeable to Therapy Family/Caregiver Present No Physical Therapy-Patient Goal To regain her strength Precautions Precautions Abdominal Precaution Comments Abdominal binder donned throughout session and education provided on proper use. Home Living Type of Home House Home Layout One level Home Access Stairs to enter with rails Entrance Stairs-Rails Both Entrance Stairs-Number of Steps 2 Home Mobility Equipment-Available None Home Mobility Equipment-Currently Using None Prior Function Level of [place] Independent functional transfers;Independent with ambulation Lives With Spouse Receives Help From Spouse/Significant other (full time babysitter assist available) Fall within the last 6 months No Activity Tolerance Activity Tolerance Comments Maryjane: somewhat hard Pain Assessment Pain Assessment 0-10 Pain Score 6 Pain Type Surgical pain Pain Location Incision Pain Interventions Declines (Pt reports that she recently received pain meds) Cognition Arousal/Alertness Alert;Appropriate responses to stimuli Orientation Oriented X4 (person, place, time, situation) Following Commands Follows all commands and directions without difficulty Sensation Light Touch WFL (BLEs) Sensation Comments 1+ pitting edema noted BLEs Balance Tests Balance Tests No Balance Balance Yes Static Sitting Balance Static Sitting-Balance Support No upper extremity supported;Feet supported Static Sitting-Sitting Surface Bed Static Sitting-Level of Assistance Independent Static Standing Balance Static Standing-Balance Support No upper extremity supported Static Standing-Standing Surface Floor Static Standing-Level of Assistance Independent Bed Mobility Bed Mobility No (Pt began and ended session sitting up in a chair. Reviewed logroll technique for bed mobility with patient.) Transfers Transfer Yes Transfer 1 Transfer From 1 Sit Transfer Type 1 To and from Transfer to 1 Stand Technique 1 Sit to stand;Stand to sit Transfer Device 1 No device Transfer Level of Assistance 1 Modified Independent Trials/Comments 1 with use of UEs for force production Ambulation Ambulation Yes Ambulation 1 Distance (ft) 1 300 Surface 1 Level tile Device 1 No device Assistance 1 Modified Independent Quality of Gait 1 no gait deviations noted Stairs Stairs No Stair Comments Pt declined the need for stair training at this time RUE Assessment RUE Assessment WFL LUE Assessment LUE Assessment WFL RLE Assessment RLE Assessment WFL LLE Assessment LLE Assessment WFL PT Treatment/Exercise Comments PT Treatment/Exercise Comments Education provided to patient about gentle strengthening exercises and abdominal engagement to promote postural and core retraining; abdominal protection strategies, diaphragmatic breathing for abdominal wall motion; importance of early mobility and ambulation for optimal healing; general healing timeline and scar desensitization techniques; proper body mechanics and handling techniques for breast feeding and other childcare activities; and family education regarding how to assist patient with self- and child-care. Basic Mobility - 6 Click How much difficulty does the patient have: Turning over in bed 4 How much difficulty does the patient currently have: Sitting down and standing up from a chair with arms? 4 How much difficulty does the patient have: Moving from lying on back to sitting on the side of the bed? 4 How much difficulty does the patient have: Moving to and from a bed to a chair including wheelchair? 4 How much help does the patient currently need: Walk in hospital room? 4 How much help from another person does the patient currently need: Climbing 3-5 steps with a railing? 4 Total 6 Click Score (range 6-24) 24 Score Interpretation 57.68 Safe Environment End of Therapy Session Safe Environment End of Therapy Session Patient left supine in bed;Call light within reach;Overbed table within reach Assessment Prognosis Excellent Plan Plan Discharge;If this is the last note, consider this the discharge summary Recommendation/Plan PT Recommendation/Plan Home with family PT Recommendation/Plan Comments Patient provided with education on appropriate resources for seeking outpatient women's health PT for pubic symphysis pain, pelvic floor dysfunction, pelvic girdle dysfunction, back pain, and bowel/bladder changes after follow-up visit with OB. PT Frequency during current admission One time visit (Discharge from this service) PT Equipment Recommended None PT Evaluation Complete Yes PT Time Calculation PT Start Time 1352 PT Stop Time 1417 PT Time Calculation (min) 25 min Multi-Disciplinary Problems (from Physical Therapy) Active Problems Not on file 10/27/2024 - 30w5d - Opal Mosher se, CNM Post Progress Note Admission Date: 10/25/2024 SUBJECTIVE Manan Betheaback is a 43 y.o. postop day 2 s/p . Pain: Not controlled. Incisional pain Bleeding: lochia minimal Oral Intake: taking regular diet Voiding: without difficulty Bowel function: flatus Ambulating: no Mood: stable Feeding: No acute events overnight. Denies FUENTES, visual changes, chest pain, SOB, or RUQ pain. Denies lightheaded or dizziness. Reports significant incisional pain. She also reports persistent RUQ. States she has RUQ ultrasound at [facility] 09/2024 and follow up plan was to be MRI 10/29/2024. OBJECTIVE Vitals: Temp Min: 36.5 C (97.7 F) Max: 36.8 C (98.2 F) Pulse Min: 100 Max: 106 BP Min: 113/68 Max: 125/80 Resp Min: 18 Max: 20 SpO2 Min: 96 % Max: 99 % Physical Exam General: No acute distress. Neurologic: Alert and oriented Lungs: Non-labored. Abdomen: Soft, non distended, appropriately tender to palpation. Fundus firm below umbilicus. Incision: dressing removed, incision well approximated. steristrips saturated and loose. Replaced - incisional care and s/s infection reviewed with patient. Extremities: Warm and well-perfused. 2+ lower extremity edema or calf tenderness. Pelvic: Deferred. Lab Review: Lab Results Component Value Date WBC 22.23 (H) 10/26/2024 HGB 10.8 (L) 10/26/2024 HCT 29.9 (L) 10/26/2024 MCV 91.2 10/26/2024 LABPLAT 190 10/26/2024 Lab Results Component Value Date ABORH A Positive 10/25/2024 SCRIBEDABORH A+ 08/12/2024 IDCOOMB Negative 10/25/2024 SCRINDANTIGL negative 08/12/2024 [id number] Nonreactive 10/25/2024 [id number] Nonreactive 10/12/2024 LABRPR Nonreactive 10/25/2024 SCRRPR Non-Reactive 10/12/2024 SCRRUBELIGG Immune 08/12/2024 GC negative 08/12/2024 Current Meds: Scheduled Medications acetaminophen, 1,000 mg, oral, Q6H docusate sodium, 100 mg, oral, BID enoxaparin, 40 mg, subcutaneous, Q12H MECHELLE gabapentin, 300 mg, oral, TID ibuprofen, 600 mg, oral, Q6H lidocaine, 2 patch, transdermal, Q24H viatmin, 1 tablet, oral, Daily polyethylene glycol, 17 g, oral, Daily senna, 1 tablet, oral, BID sodium chloride 0.9%, 0.5-20 mL, intra-catheter, Q8H MECHELLE PRN Medications benzocaine-menthoL cyclobenzaprine hydrocortisone [id number]-[id number] naloxone ondansetron ODT OR ondansetron oxyCODONE simethicone sodium chloride 0.9% varicella zoster ASSESSMENT/PLAN Manan Jaramillo is a 43 y.o. female postop day 2 s/p . Problem Encounter for Routine Follow-Up # ID: Afebrile. No signs/symptoms of infection. # Heme: QBL 1360 mL. Hemodynamically stable. POD1 Hgb 10.8 # CV/Pulm: Pre-eclampsia without severe features. Currently on no meds. Asymptomatic. Enrolled in remote BP monitoring. Text received # GI/: Tolerating PO. Voiding spontaneously. Persistent RUQ pain which she had prior to delivery. RUQ ultrasound 09/09/2024. No cholelithiasis or acute cholecystitis. Mild hepatic steatosis. RUQ ultrasound ordered. # Pain: Not well controlled with above regimen. Roxicodone frequency increased to every 3 hours # MOC: Consents signed at OSH for tubal, records not available at admission. Patient states partner has vasectomy. # MOF: . Urine drug screen: Verbal Consent Obtained. # Post DVT prophylaxis: The patient has the following MAJOR risk factors BMI >/= 40 and the following MINOR risk factors delivery. enoxaparin 40 mg BID ordered for VTE prophylaxis. # Disposition: Follow up task sent to [facility] scheduling pool for appointments in 2 weeks. They are enrolled in remote blood pressure monitoring for their BP check. Continue routine care. Opal Reynoso CNM Seen with REJI Larkin 10/27/24 Cosigned by Brianna Arvizu MD at 10/27/2024 8:21 PM CDT Associated attestation - Brianna Arvizu MD - 10/27/2024 8:21 PM CDT I agree with the findings and plan of care as documented in [place] note. Attempted to see patient multiple times but in NICU. Patient with persistent chronic RUQ pain, plan today was to repeat RUQ US but was canceled. S/p OSH RUQ US on 09/09, normal other than mild hepatic steatosis. Patient has outpt MRI scheduled through primary OB on 10/29. Consider ordering repeat RUQ US versus abdominal MRI tomorrow, versus following up for scheduled outpt MRI 10/29. Brianna Arvizu MD 10/26/2024 - 30w5d - Mita Guerrero Physical Therapy Evaluation Note NOTE: This is a summary note of the menjivar components of the evaluation session. For full details, review chart for all flowsheets documented on by this physical therapy clinician on this date. Vital signs are documented in the vital signs flowsheet. For questions, please review the treatment team and contact the PT or ROLL SKINNER currently assigned to this patient. If a physical therapy clinician is not assigned to this patient, please call [phone]. 10/26/24 1105 General PT Missed Visit Reason Unavailable (Pt. was not in room, will attempt to see at later time) Cosigned by Beverly Bruno, PT at 10/26/2024 1:06 PM CDT 10/26/2024 - John Booth MD Post Progress Note Delivery Date/Time: 10/25/2024t 6:00 PM Delivery method: [351] Subjective Flatus: Yes Endorses passing flatus on toilet this AM Pain: Well controlled Diet: Tolerating regular diet. Ambulating independently Voiding spontaneously Lochia greater than menses Scheduled Medications acetaminophen, 1,000 mg, oral, Q6H MECHELLE acetaminophen, 1,000 mg, oral, Q6H cephalexin, 500 mg, oral, BID docusate sodium, 100 mg, oral, BID enoxaparin, 40 mg, subcutaneous, Q12H MECHELLE gabapentin, 300 mg, oral, BID ibuprofen, 600 mg, oral, Q6H ketorolac, 30 mg, intravenous, Q6H MECHELLE lidocaine, 1 patch, transdermal, Q24H metroNIDAZOLE, 500 mg, oral, BID viatmin, 1 tablet, oral, Daily senna, 1 tablet, oral, BID sodium chloride 0.9%, 0.5-20 mL, intra-catheter, Q8H MECHELLE PRN Medications benzocaine-menthoL cyclobenzaprine diphenhydrAMINE hydrocortisone rvjfzrc-[id number]-fojcqqn naloxone naloxone ondansetron ODT OR ondansetron ondansetron ODT OR ondansetron oxyCODONE polyethylene glycol prochlorperazine simethicone sodium chloride 0.9% varicella zoster Vitals: Temp: [36.3 C (97.3 F)-36.7 C (98.1 F)] 36.5 C (97.7 F) Pulse: [90-102] 96 BP: (114-164)/(63-102) 114/75 Resp: [16-19] 16 SpO2: [93 %-99 %] 94 % Intake/Output Summary (Last 24 hours) at 10/26/2024 0746 Last data filed at 10/26/2024 0518 Gross per 24 hour Intake 1700 ml Output 1860 ml Net -160 ml Physical Exam General: No acute distress. Cardiovascular: Regular rate and rhythm. Lungs: Non-labored. Abdomen: Soft, non-distended, appropriately tender to palpation. Fundus below umbilicus. Bandage c/d/i Extremities: Warm and well-perfused. Neuro: Globally intact Pelvic Exam: Minimal lochia on current pad Recent Labs Lab Units 10/26/24 0455 10/25/24 1812 WBC K/cumm 22.23* 15.50* HEMOGLOBIN g/dL 10.8* 12.1 HEMATOCRIT % 29.9* 34.5* PLATELETS K/cumm 190 235 CREATININE mg/dL -- 0.57* AST Units/L -- 22 ALT Units/L -- 16 GLUCOSE mg/dL -- 148 Assessment and Plan 43 y.o. POD#1from PLTCS complicated by PPH iso likely placental abruption. Problem Encounter for Routine Follow-Up # ID: Afebrile. No signs/symptoms of infection. # Heme: QBL 1360 mL. Hemodynamically stable. POD1 Hgb 10.8 # CV/Pulm: Pre-eclampsia without severe features. Currently on no meds. CBC/CMP pending. UPC 0.6. Enrolled in remote BP monitoring. # GI/: Tolerating PO. Voiding spontaneously. # Pain: Controlled with above regimen. # MOC: Consents signed at OSH for tubal, records not available at admission. Patient states partner has vasectomy. # MOF: . Urine drug screen: Verbal Consent Obtained. Patient informed of results: pending. # Post DVT prophylaxis: The patient has the following MAJOR risk factors BMI >/= 40 and the following MINOR risk factors delivery. enoxaparin 40 mg BID ordered for VTE prophylaxis. # Disposition: Follow up task not sent. Continue routine care. John Frederick MD OBGYN, PGY-1 10/26/24 R4 Attestation I agree with the above documentation. Mild range blood pressures last night, most recently normotensive. SpO2; for close monitoring given emesis right before CS yesterday. Vital signs otherwise WNL. . UDS ordered (patient consented). Judy Neff MD PGY-4 Cosigned by Heather Russo MD at 10/26/2024 10:02 AM CDT Associated attestation - Heather Russo MD - 10/26/2024 10:02 AM CDT I have seen and examined the patient on 10/26/24. I agree with the findings and plan of care as documented in the resident's/fellow's note. Heather Russo MD 10/26/2024 - 30w5d - Eufemia Dean MD MFM Update - delayed entry due to patient care Called to room due to concern for VB. Patient rolled and expulsed blood clot and blood ~200mL. US perfomed, limited ability to visualize due to patient discomfort and habitus, but small amount of clot noted in cavity. On vaginal exam, no clot in vagina or active bleeding noted. Cervix 1cm dilated, unable to palpate clot in uterus. VS at bedside BP 133/90 Pulse 96 Temp 36.3 C (97.3 F) Resp 16 Ht 160 cm (5' 3 ) Wt 255 lb (115.7 kg) LMP 02/20/2024 SpO2 97% Yes BMI 45.17 kg/m Reassuring exam. Plan to give rectal miso and continue to monitor bleeding. Continuing to manage pain. For CBC in AM. Eufemia Dean MD Progress Notes - Office Visi t - 10/21/2024 - GA:30w1d 10/21/2024 - 30w1d - Dana Aguirre MD Maternal Medicine Consult Note Reason for Comanagement: Preeclampsia Requesting Provider: Charlene LOVETT Dear ROBINSON Melara, We had the pleasure of seeing your patient Manan Jaramillo in our office today. As you know, she is a 43 y.o. at 30w1d here today for a consult regarding: AMA, Pre-eclampsia in the 3rd trimester, Obesity, Marginal Previa . Her is also complicated by RUQ pain, mild polyhydramnios, LGA fetus . Today she is doing well, she is accompanied by her , Minor. They are having a girl and plan to name her Cesilia. Patient denies headache, visual symptoms, shortness of breath, epigastric pain, nausea/vomiting, or increased facial/hand swelling. No past medical history on file. Past Surgical History: Procedure Laterality Date EYE SURGERY TONSILLECTOMY Medications ASA 162mg vitamin Allergies Allergen Reactions Codeine Anaphylaxis Mushroom Anaphylaxis Social History Tobacco Use Smoking status: None Smokeless tobacco: None Substance and Sexual Activity Drug use: None Sexual activity: None Alcohol Use: Not on file OB History Para Term AB Living 3 1 1 1 1 SAB IAB Ectopic Multiple Live Births 1 1 # Outcome Date GA Lbr Derrick/2nd Weight Sex Type Anes PTL Lv 3 Current 2 09/09/99 35w0d 3.317 kg (7 lb 5 oz) M Vaginal FRANKLYN 1 SAB Past Gynecologic History: Prior STIs: no History of abnormal pap: no Last pap smear: none in the last ~15 years per patient Patient's last menstrual period was 02/20/2024. Denies history of uterine anomalies or fibroids Family History: Neural tube defects: No Down syndrome or other chromosomal anomalies: No Hemophilia, sickle cell, bleeding/clotting disorder: No Muscular dystrophy: No Cystic fibrosis: No Intellectual disability or Fragile X: No Talihina disease: No Other defects or genetic disorders: No Dating: JEAN PAUL of Estimated Date of Delivery: 12/29/24 by 2T US Review of Systems Constitutional: Negative. Respiratory: Negative. Cardiovascular: Negative. Gastrointestinal: Negative. Genitourinary: Negative. Musculoskeletal: Negative. Neurological: Negative. Psychiatric/Behavioral: Negative. Physical Exam Vitals BP 141/96 Pulse 109 Ht 160 cm (5' 3 ) Wt 258 lb 9.6 oz (117.3 kg) LMP 02/20/2024 SpO2 98% BMI 45.81 kg/m General: Healthy, alert, active, cooperative, and in no distress Heart: Regular rate Lungs: Non-labored respirations Abdomen: Gravid, non-tender Extremities: Warm and well-perfused Pelvic exam: performed with maintenance repairman present: cystocele, rectocele present. Normal-appearing cervix The rest of the exam was deferred due to the consultative nature of this visit. Nexplanon Insertion/Removal/Reinsertion Performed by: Dana Aguirre MD Authorized by: Dana Aguirre MD Consent Given by: Patient Verbal consent obtained: Yes Risks, alternatives, and patient questions discussed: Yes Procedure: Procedure type: Removal Left/right arm: Left Local anesthesia used?: Yes Anesthesia: Local infiltration Anesthetic total (ml): 3 Reason for removal: Arm was palpated and implant was identified: Yes Arm was prepped with: Betadine Implant was removed: Yes Site was closed with steri-strips and pressure bandage applied: Yes Pressure bandage was then applied over this to reduce swelling and hematoma formation: Yes Post-procedure: Patient tolerance: Patient tolerated the procedure well with no immediate complications Ultrasound 10/22/2024: biometry is large for gestation - EFW 97'th 'centile. The AFV is also increased with a 4 quadrant MATEO = 25.3 cm. No malformations are identified, but the exam was incomplete and suboptimal for many structures. IUP at 30 weeks + 1 day LGA growth pattern Mild polyhydramnios BPP 01/14 Please see the separate report for full details Assessment: Ms. Manan Jaramillo is a adiel 43 y.o. at 30w1d here today for a consult regarding: Recommendations: Problem Abdominal Pain Complicating History RUQ pain throughout the that the patient localizes to the skin. LFTs normal, RUQ US with no cholelithiasis or sonographic evidence for acute cholecystitis. Mild hepatic steatosis. Exam with allodynia of overlying skin, no palpable mass Given duration of symptoms, unlikely to be related to preeclampsia diagnosis. Will follow-up imaging studies Plan [] Abdominal MRI ordered by primary scheduled 10/29 (under patient's other chart ) Excessive Growth Affecting Management of in Third Trimester Plan [] Serial growth ultrasounds [] Shoulder dystocia counseling if patient is a candidate for vaginal (currently with previa) Polyhydramnios in Third Trimester, Not Applicable Or Unspecified Fetus History - Diagnosed 10/21/24 by MATEO 25.3 Counseling Discussed with patient that polyhydramnios is an abnormal increase in amniotic fluid volume and complicates 1-2% of ndiaye pregnancies.In twin gestations, polyhydramnios is more common and occurs primarily due to complications of monochorionic placentation. Although mild polyhydramnios is most commonly idiopathic, the 2 most common pathologic causes of polyhydramnios are maternal diabetes mellitus and anomalies. Other causes of polyhydramnios include congenital infection and alloimmunization. Idiopathic polyhydramnios accounts for approximately 60-70% of cases of polyhydramnios. The degree of polyhydramnios is associated with higher likelihood of an underlying anomaly. Polyhydramnios may resolve in up to 1/3 of cases when mild. Plan [] Genetics: declines [] Serial assessment of MATEO [place] (Advanced Maternal Age) Multigravida 35+, Third Trimester Age at JEAN PAUL: 44 Counseling 10/22/2024: We discussed that advanced maternal age (AMA) is associated with increased risks of spontaneous , aneuploidy, gestational diabetes, and hypertensive disorders of . Additionally, we discussed the added risks for individuals over the age of 40 years, including growth restriction and stillbirth. We discussed genetic screening and diagnostic testing options, as well as the risks and benefits of each. For the increased risk of preeclampsia, we recommend starting low dose aspirin at 12 weeks daily if other moderate risk factors are present. Maternal age-related risks of aneuploidy with an age of 42 at term include a 1:54 risk of trisomy 21 and a 1:38 risk of any chromosomal abnormality. Plan: [x] Genetic screening plan: declines s/p counseling [x] Low dose ASA starting at 12 weeks Obesity Complicating in Third Trimester Pre- BMI: >40 Counseling 10/22/2024: Obesity in (BMI >30) is associated with increased risks. Maternal risks include higher rates of preeclampsia, gestational diabetes, and section due to labor abnormalities. risks include anomalies, growth abnormalities ( growth restriction and macrosomia), and stillbirth. Maternal BMI can impact the ability to monitor the heart rate comprehensively during labor and delivery. Recommended weight gain is a total of 11-20 lbs, with 1-4 lbs in the 1st trimester and 0.5 lb/week in the 2nd and 3rd trimesters. Plan: [x] Low dose ASA starting at 12 weeks [] Specialized anatomic survey at 18-22 weeks- incomplete [] Growth ultrasounds, testing, and delivery timing per recommendations for preeclampsia Supervision of High-Risk , Third Trimester [] OB consult only, [x] Co-management vs. [] Full MFM Care; [] Red Team [] Blue Team Referring Provider: Génesis Melara [phone] [] or Medicare Insurance [x] Dating Criteria: [place] 08/16/24 with JEAN PAUL 12/29/24 [x] Labs: Rh [A+], Ab [negative], Rubella [immune], HIV [non-reactive], HepBSAg [non-reactive], HepBSAb [not done], HepBCAb [not done], RPR [non- reactive], Hep C [non-reactive], Varicella [positive], GC/CT [negative/negative] [] Aneuploidy Screening: declines [] Carrier Screening: declines [x] Hgb electrophoresis: 08/12/24: normal phenotype [x] CBC/Hgb: 12.9/37.9/plt 237 [] Early 1hr GTT (if indicated): [x] UCx: 08/12/24: no growth [] Pap: collected 10/22 [x] LD ASA (if indicated): [] EPDS [ ]; PNBHS referral (if indicated): 2nd Trimester [] Anatomy ultrasound: [x] CBC/1hr gtt at 24-28wks: 10/12/24: 13.6/40.4/plt 237, GTT 87, RPR [non- reactive], HIV [non-reactive] [] Rhogam at 28 wks (if Rh neg): 3rd Trimester [] CBC/HIV/RPR/T&S: [] GBS: [] GC/CT (if indicated): [] testinx weekly Counseling [] MOD: TBD (previa) [] Place of delivery: [facility] [] Epidural: desires [] Accepts Blood Products: [] Stop ASA: [] MOC: desires BTL if she requires CS, has had vasectomy [] Method of feeding: breast [] Commercial Drafter (specifically which provider): [] PP Depression Discussed: [] PP visits scheduled: Vaccines [] Flu Shot (Feb-May): [] COVID vaccine: [] Tdap (27-36wks): please discuss at next visit [] RSV vaccine (32-36wks): [] PP HPV vaccine counseling (<=26 yo): Marginal Placenta Previa Placenta previa persistent on US 10/31/24 Plan [] Re-assess placental location at next growth US Pre-Eclampsia Affecting , Antepartum Elevated blood pressures at visits 09/21/24, 10/14/24, 10/21/24 All other blood pressures outside of and <20 weeks normotensive UPC 0.643 10/14/24 (no baseline available Counseled patient that her newly elevated blood pressures and proteinuria in the third trimester in the absence of a diagnosis of chronic hypertension is most consistent with the diagnosis of preeclampsia. We reviewed the signs and symptoms of preeclampsia and gave the patient hospital precautions. She has a blood pressure cuff at home that she will use daily. We reviewed the plan below: Plan - serial growth ultrasounds q3 weeks - weekly visits with CBC/CMP - Twice weekly testing - Delivery at 37 weeks (or sooner if indicated) We have scheduled her to return in 1 week for a visit. This referral was marked for co-management, however the patient shared with me that she is considering transfer of care. I asked that she discuss this with your office. Thank you for the opportunity to be involved in the care of your patient. Should you have any further questions or concerns, please do not hesitate to call us. Dana Aguirre MD Progress Notes - Abstract - 10/19/2024 - [id number] 10/19/2024 - w6d - Beverly Castillo RMA Current OB records are under media tab. 10/19 requested pap smear results and dating ultrasound from referring. Last Filed Vital Signs Vital Sign Reading Time Taken Comments Blood Pressure 137/84 10/28/2024 11:17 AM CDT Pulse 112 10/28/2024 11:17 AM CDT Temperature 36.6 C (97.9 F) 10/28/2024 11:17 AM CDT Respiratory Rate 18 10/28/2024 11:17 AM CDT Oxygen Saturation 99% 10/28/2024 11:17 AM CDT Inhaled Oxygen Concentration - - Weight 115.7 kg (255 lb) 10/25/2024 8:32 PM CDT Height 160 cm (5' 3 ) 10/25/2024 8:32 PM CDT Body Mass Index 45.17 10/25/2024 8:32 PM CDT Plan of Treatment Health Maintenance Due Date Last Done Comments Breast Cancer Screening-Mammogram 1982 Depression Screening 1982 DTaP/Tdap/Td Vaccine (1 - Tdap) 1993 Varicella Vaccines (1 of 2 - 13+ 2-dose series) 12/14/1995 Hepatitis B Screening 2000 Regular Well Visit/Exam 18-64 2000 Influenza Vaccine (Season Ended) 2025 Cervical Cancer Screening 10/21/2025 10/21/2024 Hepatitis C Screening Completed 08/12/2024 HPV Vaccines Aged Out No longer eligi ble based on patient's age to complete this topic Pneumococcal vaccine <65 Aged Out No longer eligible based on patient's age to complete this topic Procedures Procedure Name Priority Date/Time Associated Diagnosis Comments RESPIRATORY PATHOGEN PANEL Routine 10/28/2024 10:30 AM CDT DRUG SCREEN, URINE STAT 10/26/2024 9: 46 AM CDT CBC WITHOUT DIFFERENTIAL Routine 10/26/2024 4:55 AM CDT XR CHEST 1 VIEW ED Urgent/IP Urgent 10/25/2024 9:23 PM CDT SURGICAL PATHOLOGY Routine 10/25/2024 6: 57 PM CDT B CHECK SAMPLE STAT 10/25/2024 6:51 PM CDT HIV 1/2 ANTIBODY PLUS P24 ANTIGEN STAT 10/25/2024 6:51 PM CDT RPR STAT 10/25/2024 6:51 PM CDT EGFR STAT 10/25/2024 6:12 PM CDT TYPE AND SCREEN STAT 10/25/2024 6:12 PM CDT COMPREHENSIVE METABOLIC PANEL STAT 10/25/2024 6:12 PM CDT CBC WITHOUT DIFFERENTIAL STAT 10/25/2024 6:12 PM CDT PROTIME-INR STAT 10/25/2024 6:12 PM CDT APTT STAT 10/25/2024 6:12 PM CDT FIBRINOGEN STAT 10/25/2024 6:12 PM CDT MI AN PROCEDURE PLACEHOLDER Routine 10/25/2024 6:10 PM CDT MI AN PROCEDURE PLACEHOLDER Routine 10/25/2024 6:09 PM CDT MI AN ELECTIVE ENDOTRACHEAL AIRWAY Routine 10/25/2024 6:09 PM CDT SECTION 10/25/2024 5:49 PM CDT Case Notes Level 1 from [facility] for abruption NONSTRESS TEST Routine 10/25/2024 3:57 PM CDT AMA (advanced maternal age) multigravida 35+, third trimester Obesity affecting in third trimester, unspecified obesity type US BIOPHYSICAL PROFILE WO TEST Schedule Routine, Read Routine (OP Routine) 10/25/2024 3:16 PM CDT Supervision of high-risk , unspecified trimester AMA (advanced maternal age) multigravida 35+, third trimester Obesity affecting in third trimester, unspecified obesity type Pre-eclampsia affecting , antepartum Marginal placenta previa PAP WITH REFLEX TO HIGH RISK HPV Routine 10/21/2024 4:33 PM CDT Supervision of high-risk , unspecified trimester AMA (advanced maternal age) multigravida 35+, third trimester VAGINAL THINPREP PROCESSING (MOLECULAR COMPONENT) Routine 10/21/2024 4:33 PM CDT Supervision of high-risk , unspecified trimester AMA (advanced maternal age) multigravida 35+, third trimester MI REMOVAL NON-BIODEGRADABLE DRUG DELIVERY IMPLANT Routine 10/21/2024 3:30 PM CDT Supervision of high-risk , unspecified trimester US OB 14 WEEKS OR OVER Schedule Routine, Read Routine (OP Routine) 10/21/2024 1:50 PM CDT Supervision of high-risk , unspecified trimester GTT 50GM 1HR GESTATIONAL SCREEN Routine 10/12/2024 CBC WITHOUT DIFFERENTIAL Routine 10/12/2024 RPR Routine 10/12/2024 HIV 1/2 ANTIBODY PLUS P24 ANTIGEN Routine 10/12/2024 HEMOGLOBIN ANALYSIS BY ELECTROPHORESIS Routine 08/12/2024 ABO/RH Routine 08/12/2024 CBC WITHOUT DIFFERENTIAL Routine 08/12/2024 ANTIBODY SCREEN Routine 08/12/2024 VARICELLA ZOSTER ANTIBODY, IGG Routine 08/12/2024 RUBELLA IGG Routine 08/12/2024 RPR Routine 08/12/2024 HEPATITIS B SURFACE ANTIGEN Routine 08/12/2024 HEPATITIS C ANTIBODY Routine 08/12/2024 CHLAMYDIA TRACHOMATIS CULTURE Routine 08/12/2024 HIV 1/2 ANTIBODY PLUS P24 ANTIGEN Routine 08/12/2024 URINE CULTURE Routine 08/12/2024 N. GONORRHOEAE CULTURE Routine 08/12/2024 from Last 3 Months Results * Respiratory pathogen panel Nasopharyngeal (10/28/2024 10:30 AM CDT) [facility] Influenza A RNA Not Detected Not Detected Influenza B RNA Not Detected Not Detected [facility] RSV RNA Not Detected Not Detected [facility] COVID-19 RNA Not Detected Not Detected [facility] Coronavirus 229E RNA Not Detected Not Detected [facility] Coronavirus HKU1 RNA Not Detected Not Detected [facility] Coronavirus NL63 RNA Not Detected Not Detected [facility] Coronavirus OC43 RNA Not Detected Not Detected [facility] Adenovirus DNA Not Detected Not Detected [facility] Metapneumovirus RNA Not Detected Not Detected [facility] Rhinovirus/Enterov irus RNA Not Detected Not Detected [facility] Parainfluenza 1 RNA Not Detected Not Detected [facility] Parainfluenza 2 RNA Not Detected Not Detected [facility] Parainfluenza 3 RNA Not Detected Not Detected [facility] Parainfluenza 4 RNA Not Detected Not Detected [facility] B. pertussis DNA Not Detected Not Detected [facility] B. parapertussis DNA Not Detected Not Detected [facility] C. pneumoniae DNA Not Detected Not Detected [facility] M. pneumoniae DNA Not Detected Not Detected [facility] Nasopharyngeal 10/28/2024 10 :30 AM CDT 10/28/2024 11:30 AM CDT Narrative [facility] - 10/28/2024 12:29 PM CDT Is the Patient experiencing symptoms consistent with COVID?->Yes Surveillance testing for transplant patient?->No Interpretive Data [employer] Respiratory Panel (RP2.1) assay is a multiplexed real-time PCR based nucleic acid test capable of simultaneous qualitative detection and identification of multiple respiratory viral and bacterial nucleic acids, including SARS Coronavirus 2 (the causative agent of COVID-19). The following bacteria, viruses and virus subtypes can be identified using the FilmArray RP2.1 assay: Bordetella pertussis, Bordetella parapertussis, Chlamydia pneumoniae, Mycoplasma pneumoniae, Adenovirus, SARS Coronavirus 2, seasonal coronaviruses (Coronavirus HKU1, Coronavirus NL63, Coronavirus 229E, and Coronavirus OC43), Influenza A, Influenza A subtype H1, Influenza A subtype H3, Influenza A subtype 2009 H1, Influenza B, Metapneumovirus, Parainfluenza 1, Parainfluenza 2, Parainfluenza 3, Parainfluenza 4, RSV, Rhinovirus/Enterovirus. Due to the genetic similarity between human Rhinovirus and Enterovirus, the FilmArray RP2.1 assay cannot reliably differentiate them. Coronavirus OC43 may cross-react with some isolates of Coronavirus HKU1. A dual positive result may be due to cross-reactivity or may indicate a co- infection. The detection and identification of specific viral and bacterial nucleic acids from individuals exhibiting signs and symptoms of a respiratory infection aids in the diagnosis of respiratory infection if used in conjunction with other clinical and epidemiological information. The results of this test should not be used as the sole basis for diagnosis, treatment, or other management decisions. Negative results in the setting of a respiratory illness may be due to infection with pathogens that are not detected by this test. Positive results do not rule out infection/co-infection with other organisms. The agent(s) detected by the FilmArray RP2.1 may not be the definite cause of disease. Additional testing (lab, imaging, etc.) may be necessary when evaluating a patient with possible respiratory tract infection. The FilmArray RP2.1 assay has FDA clearance for testing of METALSMITH HELPER swabs. The performance of additional specimen types has been assessed by the performing laboratory. The performance characteristics of this assay have been determined by [facility]. Current interpretive data was last revised on 22. Zoraida Schwartz METALSMITH HELPER LAB MICROBIOLOGY - GENERAL ORDERABLES Final Result [facility] Department [place] [address] * (ABNORMAL) Drug screen, urine (10/26/2024 9:46 AM CDT) Drug screen, ur Positive(A) Comment: The following compounds were detected: Hydromorphone Repeated and verified. Heavy Equipment Rental Associate review to follow. Interpretive Data This test detects the presence of approximately 50 substances using LC-tandem mass spectrometry. For a list of specific compounds and detection limits refer to the Lab Test Guide Book. This test detects both delta-8 and delta-9 THC metabolites and reports them both as T HC. Synthetic cannabinoids are not detected. While this technique is highly specific, false-positive and false-negative findings may occur in very rare circumstances. Contact the [facility] core laboratory for consultation if needed. This test was developed and its performance characteristics determined by [facility]. It has not been cleared or approved by the U.S. Food and Drug Administration. Current interpretive data was last revised 2022. Testing performed by: [facility], [place]., [address] Director Review Verified [facility] Comment: Upon Heavy Equipment Rental Associate review, no additional compounds were detected. Testing performed by: [place]., [address] Urine 10/26/2024 9:46 AM CDT 10/26/2024 10:18 AM CDT Narrative [facility] - 10/26/2024 12:27 PM CDT Is patient or admitted for delivery?->No [id number] us Jacobo Andre MD LAB URINE ORDERABLES Final Result [facility] Department [place] [address] * (ABNORMAL) CBC without differential (10/26/2024 4:55 AM CDT) WBC 22.23(H) 3.80 - 9.90 K/cumm Hgb 10.8(L) 11.9 - 15.5 g/dL [facility] Hct 29.9(L) 35.6 - 45.5 % [facility] Plt 190 150 - 400 K/cumm [facility] MPV 10.8 9.1 - 12.3 fL [facility] RBC 3.28(L) 3.90 - 5.20 M/cumm [facility] MCV 91.2 81.3 - 96.4 fL [facility] MCH 32.9 27.1 - 33.3 pg [facility] MCHC 36.1(H) 32.3 - 35.7 g/dL [facility] RDW CV 14.3 11.1 - 14.9 % [facility] RDW SD 46.2 35.7 - 48.1 fL [facility] NRBC abs 0.02(H) 0.00 - 0.01 K/cumm [facility] Blood 10/26/2024 4:55 AM CDT 10/26/2024 5:19 AM CDT us Jacobo Andre MD LAB BLOOD ORDERABLES Final Result [facility] Department [place] [address] * XR Chest 1 View (10/25/2024 9:23 PM CDT) Anatomical Region Laterality Modality Body, Chest N/A Computed Radiogr aphy 10/26/2024 7:34 AM CDT Impressions 10/26/2024 7:34 AM CDT There are no prior chest radiographs available for comparison. Minimal bibasilar atelectasis seen. Lungs otherwise clear without focal consolidation or pulmonary edema. No pneumothorax or pleural effusion seen. Heart size and mediastinal contour within normal limits, given the portable technique. Electronically signed by: Arpit Garnica M.D. Narrative 10/26/2024 7:34 AM CDT EXAMINATION: 1 view chest radiograph Procedure Note Arpit Garnica MD - 10/26/2024 EXAMINATION: 1 view chest radiograph IMPRESSION: There are no prior chest radiographs available for comparison. Minimal bibasilar atelectasis seen. Lungs otherwise clear without focal consolidation or pulmonary edema. No pneumothorax or pleural effusion seen. Heart size and mediastinal contour within normal limits, given the portable technique. Electronically signed by: Arpit Garnica M.D. Jacobo Andre MD IMG XR PROCEDURES Final Res ult * Surgical pathology (10/25/2024 6:57 PM CDT) Tissue (Placenta) 10/25/2024 6:57 PM CDT 10/26/2024 8:38 AM CDT Narrative PATHOLOGY [facility] - 10/29/2024 12:29 PM CDT EPIC results best viewed via link to PDF [facility] [place] [address] Note to Patients: This report may contain a detailed description of human tissue sent by a health care provider to the laboratory for pathologic evaluation. The content of this report is essential for diagnosis and may provide important critical findings. This information may be unfamiliar to patients to review without a medical professional present. It is advised that the patient review this report in the presence of a health care provider who can answer questions and explain the details. SURGICAL PATHOLOGY REPORT FINAL Patient Name: MANAN JARAMILLO Gender: F : 1980 (Age: 43) Address: [address] [place], [place] [id number] Hospital #: [id number] Taken:10/25/2024 Received:10/26/2024 Reported: 10/29/2024 Patient Type: [facility] Inpatient Service: Obstetrics Location: [place] [address] Physician(s): Mohsen Gallegos M.D. Diagnosis: A. Placenta, section delivery - 531 grams, appropriate for gestational age (AGA 10-90th %ile) pre term placenta - Accelerated villous maturation - Trivascular cord with no histopathologic abnormalities mk/10/29/2024 08:39 By this signature, I attest that the above diagnosis is based upon my personal examination of the slides(and/or other material indicated in the diagnosis). Suzanna Esquivel M.D. Report Electronically Reviewed and Signed Out By Suzanna Esquivel M.D. 10/29/2024 12:29:06 Microscopic Description and Comment: Microscopic examination substantiates the above cited diagnosis. Karime Gallegos D.O. History: The patient is a 43-year-old woman at 32 weeks gestation with notable for placenta previa, preeclampsia without severe features, advanced maternal age, obesity, mild polyhydramnios, large for gestational age fetus, vaginal bleeding and concern for abruption. Operative Procedure: Emergency primary low transverse section. Specimen(s) Received: A: Placenta, 32 weeks, 0 days Gross Description: Received in formalin, labeled with the patient s identifiers and placenta - Dimensions: 531 g, 20.5 x 19.8 x 3.1 cm - Membranes: Hunt-white to trimble, semitranslucent and thin - Membrane insertion: Marginal - Cord: Attached - 20.2 cm in length by 1.1-1.3 cm in diameter and detached - 21.4 cm in length by 1.3-1.5 cm in diameter Three vessels Eccentric - 5.0 cm to the edge No lesions - Surface: Blue-purple to pink with normal arborization of vessels and little to no subchorionic fibrin deposition - Maternal Surface: Hunt-brown and partially torn at the periphery (6.7 x 5.5 cm) but appears complete. No adherent blood clot is identified and there is scant attached adipose tissue (0.9 x 0.9 x 0.2 cm in aggregate). - Cut surface: Red-pink and homogenous with no masses or lesions identified. The central thickness ranges from 2.2-3.1 cm. Summary of sections: A1 Payroll Machine Operator membranes and umbilical cord A2-A3 Payroll Machine Operator normal central placenta, full-thickness bisected A4 Payroll Machine Operator normal central placenta, full-thickness Jar: 3 dxb/10/27/2024 10:42 PA(s): Laron Del Rio Annie, PA([facility])CM By this signature, I attest that the above diagnosis is based upon my personal examination of the slides(and/or other material). Addenda/Procedures The performance characteristics of some immunohistochemical stains, fluorescence in-situ hybridization tests and immunophenotyping by flow cytometry cited in this report (if any) were determined by the Surgical Pathology and Flow Cytometry Departments at [facility] as part of an ongoing research quality assurance specialist program and in compliance with federally mandated regulations drawn from the Clinical Laboratory Improvement Act of 1988 (CLIA '88). Some of these tests rely on the use of analyte specific reagents and are subject to specific labeling requirements by the US Food and Drug Administration. Such diagnostic tests may only be performed in a facility that is certified by the Department of Health and Human Services as a high complexity laboratory under CLIA '88. The FDA has determined that such clearance or approval is not necessary. This test is used for clinical purposes. It should not be regarded as investigational or for research. Nevertheless, federal rules concerning the medical use of analyte specific reagents require that the following disclaimer be attached to the report: This test was developed and its performance characteristics determined by the Surgical Pathology and Flow Cytometry Departments of [facility]. It has not been cleared or approved by the U. S. Food and Drug Administration. IMAGES AND SCANNED DOCUMENTS, IF INCLUDED, ONLY VIEWABLE IN PDF VERSION OF REPORT Jacobo Andre MD LAB PATHOLOGY ORDERABLES Fi nal Result PATHOLOGY [facility] 3rd Floor [place], [place] [phone] * Check Sample (10/25/2024 6:51 PM CDT) ABO Rh A Positive [facility] HCLL OTHER 10/25/2024 6:51 PM CDT 10/25/2024 7:29 PM CDT Jacobo Andre MD LAB BLOOD ORDERABLES Final Result [facility] Department [place] [address] [facility] * HIV 1/2 Antibody plus p24 Antigen Blood (10/25/2024 6:51 PM CDT) HIV 1/2 ab + p24 ag Nonreactive Nonreactive Comment:Nonreactive for HIV- 1 antigen and HIV-1/HIV-2 antibodies. No laboratory evidence of HIV infection. If acute HIV infection is suspected, consider testing for HIV-1 RNA. Current interpretive data was last revised on 22. Blood 10/25/2024 6:51 PM CDT 10/25/2024 7:02 PM CDT Jacobo Andre MD LAB MICROBIOLOGY - GENERAL ORDERABLES Final Result Performing Organization Address City/[facility] Co de Phone Number [facility] [place] [address] * RPR Blood (10/25/2024 6:51 PM CDT) RPR Nonreactive Nonreactive Blood 10/25/2024 6:51 PM CDT 10/25/2024 6:57 PM CDT Jacobo Andre MD LAB MICROBIOLOGY - GENERAL ORDERABLES Final Result Performing Organization Address [facility] de Phone Number [facility] [place] [address] * eGFR (10/25/2024 6:12 PM CDT) eGFR >90 >=60 mL/min/1. 73 m2 Comment: Interpretive Data Reference Interval Normal >/= 90 mL/min/1.73m2 Mildly decreased* 60 - 89 mL/min/1.73m2 Mildly to moderately decreased 45 - 59 mL/min/1.73m2 Moderately to severely decreased 30 - 44 mL/min/1.73m2 Severely decreased 15 - 29 mL/min/1.73m2 Kidney Failure < 15 mL/min/1.73m2 *Relative to young adult level Estimated glomerular filtration rate is determined by the 2020 CKD-EPI equation recommended by the National Kidney Foundation (A Unifying Approach to GFR Estimation: Recommendations of the NKF-ASK Task Force on Reassessing the Inclusion of Race in Diagnosing Kidney Disease, JASN 2020). The CKD-EPI equation should not be used for patients with unstable renal function and has not been validated in children and those over 70. Current interpretive data was last reviewed 2021. Blood 10/25/2024 6:12 PM CDT 10/25/2024 6:29 PM CDT Jacobo Andre MD LAB BLOOD ORDERABLES Final Result Performing Organization Address [facility] de Phone Number [facility] [place] [address] * (ABNORMAL) aPTT (10/25/2024 6:12 PM CDT) aPTT 24(L) 28 - 38 sec Comment: Interpretive Data Heparin therapeutic range: 66.0 - 100.0 seconds. Range based on correlation with therapeutic heparin activity range of 0.3 - 0.7 Units/mL. Current interpretive data was last revised on 2023. Blood 10/25/2024 6:12 PM CDT 10/25/2024 6:26 PM CDT Jacobo Andre MD LAB BLOOD ORDERABLES Final Result Performing Organization Address [facility] [place] [address] * Protime-INR (10/25/2024 6:12 PM CDT) PT 9.7 9.7 - 13.0 sec INR 0.90 0.90 - 1.20 [facility] Comment: Interpretive data Oral anticoagulant therapeutic ranges: Venous thromboembolism prophylaxis or treatment: 2.0-3.0 CARDIOLOGY Standard range: 2.0-3.0 High-intensity range: 2.5-3.5 Refer to indication-specific guidelines for appropriate target ranges for prosthetic heart valve replacement. Current interpretive data was last revised on 2019. Blood 10/25/2024 6:12 PM CDT 10/25/2024 6:26 PM CDT Jacobo Andre MD LAB BLOOD ORDERABLES Final Result [facility] [place] [address] * (ABNORMAL) Fibrinogen (10/25/2024 6:12 PM CDT) Pathologist [facility] Fibrinogen 532(H) 170 - 400 mg/dL Blood 10/25/2024 6:12 PM CDT 10/25/2024 6:26 PM CDT Jacobo Andre MD LAB BLOOD ORDERABLES Final Result Performing Organization Address [facility] de Phone Number [facility] Department [place] [address] * (ABNORMAL) CBC without differential (10/25/2024 6:12 PM CDT) [facility] WBC 15.50(H) 3.80 - 9.90 K/cumm Hgb 12.1 11.9 - 15.5 g/dL [facility] Hct 34.5(L) 35.6 - 45.5 % [facility] Plt 235 150 - 400 K/cumm [facility] MPV 11.1 9.1 - 12.3 fL [facility] RBC 3.76(L) 3.90 - 5.20 M/cumm [facility] MCV 91.8 81.3 - 96.4 fL [facility] MCH 32.2 27.1 - 33.3 pg [facility] MCHC 35.1 32.3 - 35.7 g/dL [facility] RDW CV 14.2 11.1 - 14.9 % [facility] RDW SD 46.3 35.7 - 48.1 fL [facility] NRBC abs 0.05(H) 0.00 - 0.01 K/cumm [facility] Blood 10/25/2024 6:12 PM CDT 10/25/2024 6:28 PM CDT Jacobo Andre MD LAB BLOOD ORDERABLES Final Result [facility] [place] [address] * Type and screen (10/25/2024 6:12 PM CDT) Pathologist [facility] Saman, indirect Negative ABO Rh A Positive [facility] Blood 10/25/2024 6:12 PM CDT 10/25/2024 6:28 PM CDT Jacobo Andre MD LAB BLOOD BANK TEST ORDERAB LES Final Result Performing Organization Address [facility] Co de Phone Number [facility] [place] [address] * (ABNORMAL) Comprehensive metabolic panel (10/25/2024 6:12 PM CDT) [facility] Sodium 138 135 - 145 mmol/L Potassium, pl 3.8 3.3 - 4.9 mmol/L [facility] Chloride 102 97 - 110 mmol/L [facility] CO2 25 22 - 32 mmol/L [facility] Anion gap 11 2 - 15 mmol/L [facility] BUN 8 6 - 25 mg/dL [facility] Creatinine 0.57(L) 0.60 - 1.10 mg/dL [facility] Glucose 148 70 - 199 mg/dL [facility] Comment: Interpretive Data Fasting glucose >/= 126 mg/dl is diagnostic for diabetes. Fasting is defined as no caloric intake for at least 8 hours. Fasting glucose between 100 mg/dl to 125 mg/dl is diagnostic of prediabetes. In a patient with classic symptoms of hyperglycemia or hyperglycemic crisis, a random glucose >/= 200 mg/dl is diagnostic for diabetes. In the absence of unequivocal hyperglycemia, results should be confirmed by repeat testing. The classification and Diagnosis of Diabetes Diabetes Care 2021; 46: S19-S40. Current interpretive data was last revised 2022. Calcium 8.9 8.5 - 10.3 mg/dL [facility] Bilirubin, total <0.2 0.1 - 1.2 mg/dL [facility] Protein, pl 5.7(L) 6.5 - 8.5 g/dL [facility] Albumin 2.9(L) 3.5 - 5.0 g/dL [facility] Alk phos 121 40 - 130 Units/L [facility] ALT 16 7 - 45 Units/L [facility] AST 22 10 - 45 Units/L [facility] Blood 10/25/2024 6:12 PM CDT 10/25/2024 6:29 PM CDT us Jacobo Andre MD LAB BLOOD ORDERABLES Final Result [facility] Department [place] [address] * MI AN PROCEDURE PLACEHOLDER (10/25/2024 6:10 PM CDT) Abby Hsu CRNA - 10/25/2024 6:10 PM CDT Abby Salinas CRNA 10/25/2024 6:11 PM Peripheral IV Catheter Patient location: OR Staff: Supervising provider: Sommer Torres MD Placed by: Resident: Li Ulloa MD Preprocedure prep: Prep solution: chlorhexadine PPE: gloves and provider hat/mask PIV line: Laterality: right Site: hand Catheter size: 20 g Technique: direct visualization Procedure details: occlusive dressing applied and good blood return Number of attempts: 1 Assessment: Events: patient tolerated procedure well with no complications us Sommer Torres MD ANESTHESIA ORDERABLES Final Result * MI AN ELECTIVE ENDOTRACHEAL AIRWAY, MI AN PROCEDURE PLACEHOLDER (10/25/2024 6:09 PM CDT) Abby Hsu CRNA - 10/25/2024 6:09 PM CDT Abby Salinas CRNA 10/25/2024 6:10 PM Airway Patient location: OR Urgency: elective Date/time: 10/25/2024 7:59 PM Indications for airway management: anesthesia and airway protection Difficult airway: no Staff: Supervising provider: Sommer Torres MD Placed by: Resident: Li Ulloa MD Emergent airway documentation: Risks and benefits discussed: yes Consent obtained: yes Consent given by: patient Airway prep: Preoxygenated: yes Patient position: sniffing Mask difficulty assessment: 0 - not attempted Spontaneous ventilation during airway: absent Sedation level during airway: GA Final airway details: Final airway type: endotracheal airway Tube type: ETT ETT size: 7.0 mm Cuffed: yes Technique used for successful ETT placement: video laryngoscopy Devices/Methods used in placement: intubating stylet Insertion site: oral Blade type: Yolande Video blade type: Dawson Blade size: 3 Cormack-Lehane (direct): grade I - full view of glottis Cuff volume: 5 mL Cuff inflated with: air ETT to teeth: 22 cm Placement verified by: auscultation and CO2 detection Airway secured with: silk tape Number of attempts: 1 us Sommer Torres MD ANESTHESIA ORDERABLES Final Result * nonstress test - (10/25/2024 3:57 PM CDT) us Fina Moran MD OB GYNE ORDERABLES Final Result * US Biophysical Profile WO Test (10/25/2024 3:16 PM CDT) Fetus# Fetus1 VIEWPOINT Placenta Details Previa-yes, anterior VIEWPOINT Presentation Vertex VIEWPOINT Anatomical Region Laterality Modality N/A Ultrasound 10/25/2024 3:18 PM CDT Impressions 10/25/2024 3:55 PM CDT IUP - 30w 5d The BPP is reassuring. Anterior placenta previa per prior US. TV scanning not repeated at this examination. [facility] visit to follow. Narrative Procedure Note Dennis Lopes MD - 10/25/2024 IMPRESSION: IUP - 30w 5d The BPP is reassuring. Anterior placenta previa per prior US. TV scanning not repeated at thisexamination. [facility] visit to follow. us Dana Aguirre MD IMG OB US PROCEDURES Final R esult * Vaginal ThinPrep processing (Molecular Component) (10/21/2024 4:33 PM CDT) Vaginal ThinPrep processing (Molecular component) Specimen received for processing. [facility] Vaginal 10/21/2024 4:33 PM CDT 10/22/2024 9:34 AM CDT us Dana Aguirre MD LAB BODY FLUIDS AND STOOLS O RDERABLES Final Result [facility] Department [place] [address] [facility] * Pap with reflex to High Risk HPV and Genotyping (Cytology Component) (10/21/2024 4:33 PM CDT) Thin prep (Pap test) 10/21/2024 4:33 PM CDT 10/21/2024 7:12 PM CDT Narrative PATHOLOGY [facility] - 10/27/2024 3:38 PM CDT EPIC results best viewed via link to PDF [facility] [place] [address] Note to Patients: This report may contain a detailed description of human tissue sent by a health care provider to the laboratory for pathologic evaluation. The content of this report is essential for diagnosis and may provide important critical findings. This information may be unfamiliar to patients to review without a medical professional present. It is advised that the patient review this report in the presence of a health care provider who can answer questions and explain the details. CYTOPATHOLOGY REPORT FINAL Patient Name: MANAN JARAMILLO Gender: F : 1980 (Age: 43) Address: [address] [place] [id number] Hospital #: [id number] Service: [employer] REPRESENTATIVE Location: Patient Type: [facility] SPECIMEN Taken: 10/21/2024 Received: 10/21/2024 Accessioned: 10/22/2024 Reported: 10/27/2024 Physician(s): Dana Aguirre M.D. FINAL INTERPRETATION SOURCE OF SPECIMEN Liquid based Thin Prep pap with Reflex HPV: STATEMENT OF ADEQUACY - Satisfactory for evaluation - Endocervical cells/transformation zone sample absent GENERAL CATEGORIZATION: - Negative for squamous intraepithelial lesion or malignancy nemesio/10/27/2024 15:38 LORNA Santana(ASCP) Report Electronically Reviewed and Signed Out By LORNA Santana(ASCP) 10/27/2024 15:38:17 Cervicovaginal Cytology (Pap Test) Disclaimer: The Pap test is a screening test used to detect cervical cancer and its precursors; it is not a diagnostic procedure. False negative and false positive results do occur. Pap test results should be interpreted in the context of pertinent clinical information and biopsy results as indicated. [facility] Clinical Laboratory Improvement Amendments (CLIA) mandate that cytologic and histologic results be correlated for laboratory supervisor type disk quality control & improvement standards. FOR ALL HIGH-GRADE CASES we request submission of follow-up histological material and/or reports that have not been previously provided so that we may fulfill said required standards. Gross Description A. Liquid based Thin Prep pap with Reflex HPV: Vaginal - Screening ThinPrep Clinical Diagnosis and History Last Menstrual Period: 02/08/24 The patient is a 43 year old female with well woman exam. Report Images and scanned documents, if included only viewable in PDF version The performance characteristics of some immunohistochemical stains, in-situ hybridization and fluorescence in-situ hybridization tests and immunophenotyping by flow cytometry cited in this report (if any) were determined by the Surgical Pathology Department at [facility] as part of an ongoing research quality assurance specialist program and in compliance with federally mandated regulations drawn from the Clinical Laboratory Improvement Act of 1988 (CLIA '88). Some of these tests rely on the use of analyte specific reagents and are subject to specific labeling requirements by the US Food and Drug Administration. Such diagnostic tests may only be performed in a facility that is certified by the Department of Health and Human Services as a high complexity laboratory under CLIA '88. The FDA has determined that such clearance or approval is not necessary. This test is used for clinical purposes. It should not be regarded as investigational or for research. Nevertheless, federal rules concerning the medical use of analyte specific reagents require that the following disclaimer be attached to the report: This test was developed and its performance characteristics determined by the Surgical Pathology Department of [facility]. It has not been cleared or approved by the U. S. Food and Drug Administration. Dana Aguirre MD LAB CYTOLOGY ORDERABLES Annita fernandez Result PATHOLOGY [facility] 3rd Floor [place], [place] [phone] * MI REMOVAL NON-BIODEGRADABLE DRUG DELIVERY IMPLANT (10/21/2024 3:30 PM CDT) Narrative Dana Aguirre MD - 10/21/2024 3:30 PM CDT Dana Aguirre MD 10/22/2024 8:28 AM Nexplanon Insertion/Removal/Reinsertion Performed by: Dana Aguirre MD Authorized by: Dana Aguirre MD Consent Given by: Patient Verbal consent obtained: Yes Risks, alternatives, and patient questions discussed: Yes Procedure: Procedure type: Removal Left/right arm: Left Local anesthesia used?: Yes Anesthesia: Local infiltration Anesthetic total (ml): 3 Reason for removal: Arm was palpated and implant was identified: Yes Arm was prepped with: Betadine Implant was removed: Yes Site was closed with steri-strips and pressure bandage applied: Yes Pressure bandage was then applied over this to reduce swelling and hematoma formation: Yes Post-procedure: Patient tolerance: Patient tolerated the procedure well with no immediate complications Dana Aguirre MD IN CLINIC/BEDSIDE ORDERABLES Final Result * US Ob 14 Weeks Or Over (10/21/2024 1:50 PM CDT) Fetus# Fetus1 VIEWPOINT Estimated Weight 1,978 g&grams VIEWPOINT Placenta Details anterior, Previa-yes, no placental masses VIEWPOINT Presentation Vertex VIEWPOINT Anatomical Region Laterality Modality Abdomen N/A Ultrasound 10/21/2024 2:25 PM CDT Impressions 10/21/2024 4:11 PM CDT biometry is large for gestation - EFW 97'th 'centile. The AFV is also increased with a 4 quadrant MATEO = 25.3 cm. No malformations are identified, but the exam was incomplete and suboptimal for many structures. IUP at 30 weeks + 1 day LGA growth pattern Mild polyhydramnios Narrative Procedure Note Megan Trimble MD - 10/21/2024 IMPRESSION: biometry is large for gestation - EFW 97'th 'centile. The AFV isalso increased with a 4 quadrant MATEO = 25.3 cm. No malformations areidentified, but the exam was incomplete and suboptimal for manystructures. IUP at 30 weeks + 1 day LGA growth pattern Mild polyhydramnios Jeannette Diaz MD IMG OB US PROCEDURES Final Result * GTT 50gm 1hr gestational screen (10/12/2024) GTT 50g gest screen 87 Blood Charlene Melara LAB BLOOD ORDERABLES Final Re sult * HIV 1/2 Antibody plus p24 Antigen Blood (10/12/2024) Pathologist [facility] SCRIBED HIV P24 Nonreactive Nonreactive , Invalid [facility] MICROBIOLOGY - GENERAL OR DERABLES Final Result * RPR Blood (10/12/2024) Pathologist [facility] SCRIBED RPR Non-Reacti ve Non-Reacti ve Blood Charlene Melara [employer] LAB MICROBIOLOGY - GENERAL OR DERABLES Final Result * CBC without differential (10/12/2024) Pathologist [facility] Hct 40.4 Hgb 13.6 Plt 237 Blood Charlenefranc Melara LAB BLOOD ORDERABLES Final Re sult * HIV 1/2 Antibody plus p24 Antigen Blood (08/12/2024) SCRIBED HIV P24 Nonreactive Nonreactive , Invalid Blood Charlene Melara NP LAB MICROBIOLOGY - GENERAL OR DERABLES Final Result * Hemoglobin analysis by electrophoresis (08/12/2024) Scribed Hemoglobin Electrophoresis Normal Blood Charlene Melara NP LAB BLOOD ORDERABLES Final Re sult * Hepatitis C antibody Blood (08/12/2024) SCRIBED HCV ab non-reacti ve Blood Charlene Melara NP LAB MICROBIOLOGY - GENERAL OR DERABLES Final Result * ABO/Rh (08/12/2024) SCRIBED ABO/Rh A+ Blood Result [facility] Charlene Melara NP LAB BLOOD BANK TEST ORDERABLE S Final Result * Rubella IgG antibody Blood (08/12/2024) Pathologist [facility] Rubella IgG Scribed Immune Blood Result [facility] Charlene Melara NP LAB MICROBIOLOGY - GENERAL OR DERABLES Final Result * RPR Blood (08/12/2024) SCRIBED RPR Non-Reacti ve Non-Reacti ve Blood Charlene Melara NP LAB MICROBIOLOGY - GENERAL OR DERABLES Final Result * Hepatitis B Surface Antigen Blood (08/12/2024) SCRIBED HBsAg Nonreactive Nonreactive , Invalid Blood Charlene Melara NP LAB MICROBIOLOGY - GENERAL OR DERABLES Final Result * CBC without differential (08/12/2024) Hct 37.9 Hgb 12.9 Plt 237 Blood Charlene Melara LAB BLOOD ORDERABLES Final Re sult * Antibody screen (08/12/2024) SCRIBED Indirect Antiglobulin negative Blood Charlene Melara [employer] LAB BLOOD BANK TEST ORDERABLE S Final Result * Chlamydia trachomatis culture (08/12/2024) SCRIBED Chlamydia culture negative Chalrene Melara NP LAB MICROBIOLOGY - GENERAL OR DERABLES Final Result * Urine culture (08/12/2024) Pathologist [facility] SCRIBED Urine culture no growth Charlene Melara LAB MICROBIOLOGY - GENERAL OR DERABLES Final Result * N. gonorrhoeae culture (08/12/2024) SCRIBED Gonorrhea culture negative Charlene Melara LAB MICROBIOLOGY - GENERAL OR DERABLES Final Result * Varicella Zoster IgG antibody Blood (08/12/2024) SCRIBED Varicella Zoster, IgG Positive Blood Charlene Melara LAB MICROBIOLOGY - GENERAL OR DERABLES Final Result from Last 3 Months Insurance [facility] BLUE ACCESS CHOICE [place] Advance Directives For more information, please contact: [phone] * Full Code (Latest Code Status on File) Date Activated Date Inactivated Comments 10/25/2024 7:35 PM 10/28/2024 9:39 PM * Full Code Date Activated Date Inactivated Comments 10/25/2024 6:12 PM 10/25/2024 7:35 PM Full CPR in case of cardiopulmonary arrest Care Teams Sterile Proc Tech Relationship Specialty Start Date End Date No, Physician PCP - General 10/14/24
--- OUTSIDE RECORDS SUMMARY | 2024-10-29 16:24 | XMS_ITS | Data Portability ---
Author Organization [employer] [facility] , [facility] Address [address] [place] [address] Assessment No assessment recorded. Plan of Treatment Reminders Order Date Submit Date Provider Last Modified By Organization Details Last Modified Time Details Appointments None recorded. Lab unlisted lab - sureswab(R ) advanced vaginitis plus, tma 2024 025 [facility], [address] [place], [address], 5 16:44:24 protein:cr eatinine ratio, urine 2024 025 [facility], [address] [place], [address], 5 08:14:05 CMP, serum or plasma 2024 025 [facility], [address] [place], [address], 5 05:57:57 CBC w/ auto diff 2024 025 [facility], [address] [place], [address], 5 05:57:58 unlisted lab - - induced hypertensi on panel (phi) ([facility]) 2024 025 [facility], [address] [place], [address], 5 11:39:59 protein:cr eatinine ratio, urine 2024 025 [facility], [address] [place], [address], 12:06:22 obstetric screen, serum or blood 2024 025 [facility], [address] [place], [address], 12:58:11 CBC w/ auto diff 2024 025 [facility], [address] [place], [address], 12:53:03 glucose tolerance test, post-50G, 1-hour 2024 025 [facility], [address] [place], [address], 11:40:00 Referral maternal & medicine referral - 29 weeks and mild pree, BMI 44 and ama at age 43 [facility], [address], [address], 12:44:10 Procedures None recorded. Surgeries None recorded. Imaging US, obstetric, biophysica l profile 2024 025 [facility] [place], [address] [place] [address], [address], 13:11:25 US, obstetric, biophysica l profile 2024 025 [email or web address] [facility] [place], [facility] [place], [address], 15:40:49 US, obstetric, follow-up 2024 025 EMEKA Not available 10:13:08 Medication Orders mupirocin 2 % topical ointment 2024 025 [id number], [address] [facility], [place], [place], [id number], 13:56:38 Patient TargetsNo targets recorded. Patient Instructions Encounter Date Encounter Id Patient Instructions Last Modified By Organization Details Last Modified Time 10/12/2024 [id number] learning about depression during angélica Not available 10/13/2024 08:54:45 learning about screening for gestational diabetes angélica Not available 10/13/2024 08:54:45 Reason for Referral Maternal & Medicine Re ferral for Pre-eclampsia 29 weeks and mild pree, BMI 44 and ama at age 43 Referring Physician: Sina Olivo, VIDEO TAPE TRANSFERRER, Encounter Date: 10/18/2024 Results Created Date Observation Date Name Description Value Unit Range Abnormal Flag Note LastModifiedBy Organization Detail LastModifiedTime 10/13/1910/13/2024 [facility] - [facility]- INDUC ED HYPER TENSI ON PANEL sodium 140 mmol/ L 136 - 145 normal Not Available [address], [address], 10/13/2024 11:39:59 10/13/19 25 10/13/2024 [facility] - [facility] [place]- INDUC ED HYPER TENSI ON PANEL potassium 4.1 mmol/ L 3.5 - 5.1 normal Not Available [facility] Zbigniew [address] [place] [address], [address], 10/13/2024 11:39:59 10/13/19 25 10/13/2024 [facility] - [facility] [place]- INDUC ED HYPER TENSI ON PANEL chloride 103 mmol/ L 98 - 107 normal Not Available [place] Pol [address] [place] [address], [address], 10/13/2024 11:39:59 10/13/19 25 10/13/2024 [facility] - [facility] [place]- INDUC ED HYPER TENSI ON PANEL glucose 92 mg/dL 74 - 106 normal Not Available [address], [address], 10/13/2024 11:39:59 10/13/19 25 10/13/2024 [facility] - [facility] [place]- INDUC ED HYPER TENSI ON PANEL carbon dioxide 24 mmol/ L 20 - 32 normal Not Available [address], [address], 10/13/2024 11:39:59 10/13/19 25 10/13/2024 [facility] - [facility] [place]- INDUC ED HYPER TENSI ON PANEL calcium 8.7 mg/dL 8.5 - 10.1 normal Not Available [address], [address], 10/13/2024 11:39:59 10/13/19 25 10/13/2024 [facility] - [facility] [place]- INDUC ED HYPER TENSI ON PANEL creatinine 0.44 mg/dL 0.60 - 1.00 low Not Available [address], [address], 10/13/2024 11:39:59 10/13/19 25 10/13/2024 [facility] - [facility] [place]- INDUC ED HYPER TENSI ON PANEL eGFR 125 mL/mi n/1.7 3m2 >60 normal The eGFR is based on the CKD-E PI 2020 equat ion. To calcu late the new eGFR from a previ ous Creat inine or Cysta carl C resul t, go to https :[email or web address] rg/pr denisa sears s/kdo qi/gf r_cal culat or Not Available [address], [address], 10/13/2024 11:39:59 10/13/19 25 10/13/2024 [facility] - [facility] [place]- INDUC ED HYPER TENSI ON PANEL AST 22 U/L 15 - 37 normal Not Available [address], [address], 10/13/2024 11:39:59 10/13/19 25 10/13/2024 [facility] - [facility] [place]- INDUC ED HYPER TENSI ON PANEL ALT 28 U/L 14 - 59 normal Not Available [address], [address], 10/13/2024 11:39:59 10/13/19 25 10/13/2024 [facility] - [facility] [place]- INDUC ED HYPER TENSI ON PANEL alk phos 114 U/L 46 - 116 normal Not Available [address], [address], 10/13/2024 11:39:59 10/13/19 25 10/13/2024 [facility] - [facility] [place]- INDUC ED HYPER TENSI ON PANEL albumin 2.4 g/dL 3.4 - 5.0 low Not Available [address], [address], 10/13/2024 11:39:59 10/13/19 25 10/13/2024 [facility] - [facility] [place]- INDUC ED HYPER TENSI ON PANEL protein, total 5.9 g/dL 6.4 - 8.2 low Not Available [address], [address], 10/13/2024 11:39:59 10/13/19 25 10/13/2024 [facility] - [facility] [place]- INDUC ED HYPER TENSI ON PANEL bilirubin, total 0.2 mg/dL 0.2 - 1.0 low Not Available [address], [address], 10/13/2024 11:39:59 10/13/19 25 10/13/2024 [facility] - [facility] [place]- INDUC ED HYPER TENSI ON PANEL urea nitrogen (BUN) 5 mg/dL 7 - 18 low Not Available [address], [address], 10/13/2024 11:39:59 10/13/19 25 10/13/2024 [facility] - [facility] [place]- INDUC ED HYPER TENSI ON PANEL uric acid 4.0 mg/dL 2.6 - 6.0 normal Not Available [address], [address], 10/13/2024 11:39:59 10/13/19 25 10/13/2024 (50G) 1HR - GLUCO SE EVELYN ANCE TEST, GESTA AYDEE L SCREE N glucose (50g) 1 hour 87 mg/dL <135 normal Not Available a [address], [address], 10/13/2024 11:40:00 10/13/1910/13/2024 PROT/ CREAT - U RANDO M protein, urine 53.7 mg/dL <11.9 high Not Available [address], [address], 10/13/2024 12:06:22 10/13/19 25 10/13/2024 PROT/ CREAT - U RANDO M creatinine, urine 83 mg/dL 20 - 275 normal Not Available [address], [address], 10/13/2024 12:06:22 10/13/19 25 10/13/2024 PROT/ CREAT - U RANDO M protein/crea tinine ratio, random urine 0.643 mg/mg _crea t 0.024 - 0.184 high Not Available [address], [address], 10/13/2024 12:06:22 10/13/19 25 10/13/2024 CBC (INCL UDES DIFF/ PLT) WBC 12.3 thous and/u L 4.0 - 9.8 high Not Available [address], [address], 10/13/2024 12:53:02 10/13/19 25 10/13/2024 CBC (INCL UDES DIFF/ PLT) RBC 4.2 faith on/uL 3.9 - 4.9 normal Not Available [address], [address], 10/13/2024 12:53:02 10/13/1910/13/2024 CBC (INCL UDES DIFF/ PLT) hemoglobin 13.6 g/dL 11.8 - 14.8 normal Not Available [address], [address], 10/13/2024 12:53:02 10/13/19 25 10/13/2024 CBC (INCL UDES DIFF/ PLT) hematocrit 40.4 % 35.5 - 44.0 normal Not Available [address], [address], 10/13/2024 12:53:02 10/13/1910/13/2024 CBC (INCL UDES DIFF/ PLT) MCV 96.0 fL 82.0 - 99.0 normal Not Available [address], [address], 10/13/2024 12:53:02 10/13/1910/13/2024 CBC (INCL UDES DIFF/ PLT) MCH 32.3 pg 27.2 - 32.6 normal Not Available [address], [address], 10/13/2024 12:53:02 10/13/1910/13/2024 CBC (INCL UDES DIFF/ PLT) MCHC 33.7 g/dL 31.5 - 35.5 normal Not Available [address], [address], 10/13/2024 12:53:02 10/13/1910/13/2024 CBC (INCL UDES DIFF/ PLT) RDW-CV 13.6 % 11.5 - 14.5 normal Not Available [address], [address], 10/13/2024 12:53:02 10/13/1910/13/2024 CBC (INCL UDES DIFF/ PLT) platelet 237 thous and/u L 140 - 350 normal Not Available [address], [address], 10/13/2024 12:53:02 10/13/1910/13/2024 CBC (INCL UDES DIFF/ PLT) MPV 11.1 fL 9.3 - 12.4 normal Not Available [address], [address], 10/13/2024 12:53:02 10/13/1910/13/2024 CBC (INCL UDES DIFF/ PLT) absolute neutrophil 9.47 thous and/u L 1.90 - 7.00 high Not Available [address], [address], 10/13/2024 12:53:02 10/13/1910/13/2024 CBC (INCL UDES DIFF/ PLT) absolute lymphocyte 1.63 thous and/u L 0.70 - 4.50 normal Not Available [address], [address], 10/13/2024 12:53:02 10/13/1910/13/2024 CBC (INCL UDES DIFF/ PLT) absolute monocyte 0.79 thous and/u L 0.10 - 1.30 normal Not Available [address], [address], 10/13/2024 12:53:02 10/13/1910/13/2024 CBC (INCL UDES DIFF/ PLT) absolute eosinophil 0.12 thous and/u L <0.70 normal Not Available [address], [address], 10/13/2024 12:53:02 10/13/1910/13/2024 CBC (INCL UDES DIFF/ PLT) absolute basophil 0.06 thous and/u L <0.20 normal Not Available [address], [address], 10/13/2024 12:53:02 10/13/19 25 10/13/2024 CBC (INCL UDES DIFF/ PLT) absolute immature granulocyte 0.25 thous and/u L <0.03 high Not Available [address], [address], 10/13/2024 12:53:02 10/13/19 25 10/13/2024 OB 28W (SYPH HIV 1/2 Ag/Ab Non-Re active non-re active normal Not Available [address], [address], 10/13/2024 12:58:10 10/13/19 25 10/13/2024 OB 28W (SYPH syphilis Ab Non-Re active non-re active normal Not Available [address], [address], 10/13/2024 12:58:10 10/19/19 25 10/21/2024 PROTE IN, TOTAL W/CRE AT, RANDO M URINE creatinine, random urine 87 mg/dL 20-275 normal Not Available [address], [address], 10/21/2024 08:14:05 10/19/19 25 10/21/2024 PROTE IN, TOTAL W/CRE AT, RANDO M URINE protein/crea tinine ratio 494 mg/g_ creat 24-184 high Not Available [facility] [employer] [address], [address], 10/21/2024 08:14:05 10/19/19 25 10/21/2024 PROTE IN, TOTAL W/CRE AT, RANDO M URINE protein/crea tinine ratio 0.494 mg/mg _crea t 0.024- 0.184 high Not Available [address], [address], 10/21/2024 08:14:05 10/19/19 25 10/21/2024 PROTE IN, TOTAL W/CRE AT, RANDO M URINE protein, total, random ur 43 mg/dL 5-24 high Not Available [facility] [address] [place], [address], 10/21/2024 08:14:05 10/14/19 25 10/12/2024 US, obste tric, follo w-up No observ ation record ed. [email or web address] [facility] [address], [place], [address], 10/13/2024 19:17:18 10/14/19 US, obste tric, bioph ysica l profi le No observ ation record ed. [email or web address] [facility] [address], [address], 10/13/2024 13:40:44 10/17/19 25 10/13/2024 US, obste tric, bioph ysica l profi le No observ ation record ed. [facility] [address], [place], [address], 10/16/2024 12:03:33 10/19/19 , obste tric, bioph ysica l profi le No observ ation record ed. [facility] [address], [address], 10/18/2024 13:29:04 10/19/19 25 10/18/2024 , obste tric, bioph ysica l profi le No observ ation record ed. [facility] [address], [place], [address], 10/19/2024 13:11:06 Result Notes None recorded. Problems Name Problem SNOMED Code Status Onset Date Resolution Date Notes Provider Name and Address Organization Details Recorded Time Multigrav maria fernanda of advanced maternal age 745822124 Active 2024 SHARITA MEZA NP [address] [place], [address] , [facility] [employer] [facility] 5 13:35:40 Obese class III 662177340 Active 2024 Juana Morales CNM [address] [place], [address] , [facility] [employer] [facility] IV 5 11:46:43 Obese class III 729128188 Active 2024 Juana Morales CNM [address] [place], [address] , [facility] [employer] [facility] 5 11:46:43 Placenta previa marginali s 12822003 Active 2024 ant placenta and on 10-12-24 was 0.6cm from os Sina Olivo MD [address] [place] [address], [address] , [facility] [employer] [facility] 5 15:05:12 Finding of urine substance level 050169606 Active 2024 UDS for methamphet amines repeat uds on 10-21-24 Sina Olivo MD [address] [place] [address], [address] , [facility] [employer] [facility] 5 12:46:46 Maternal tobacco use 953886322 Active 2024 Brianna Menard MD [address] [place] [address], [address] , [facility] [employer] [facility] 5 20:27:52 Cystocele 911437612 Active 2024 desires PLTCs and tubal and discussed risks and benfits 10-18-24 Sina Olivo MD [address] [place] [address], [address] , [facility] IV 5 12:32:19 Pre-eclam psia 552966837 Active 2024 Her growth on 10/12/24 was 3 lbs and 4 oz athe the 8th percentile , AC at the 96th percentile . Normal amount of fluid. Low lying placenta 0.6 cm from the cervix. The placenta is anterior. p/c ratio was 600 on 10-12-24 and 10-14-24 had repeat labs and serum creat was 0.4 and ast<18 we will do twice weekly visits and bpp weekly until 32 weeks and then twice per week p/c ratio 494 on 10-18-24 Sina Olivo MD [facility] [place], [address] , [employer] IV 17:38:10 Past history of premature delivery 070053518 Active 2024 35 week PPROM at age 18 Sina Olivo MD [facility] [place], [address] , [employer] [facility] IV 12:44:39 Problem Notes None recorded. Procedures Surgical History Date Name Laterality Status Provider Name and Address Organization Details Recorded Time tonsillectomy completed Brea [employer] IV 09/21/2024 09:56:13 operative procedure on the orbit and eyeball completed Brea Aston [employer] [facility] IV 09/21/2024 09:56:42 Imaging Results Imaging Date Name Status LastModified by Organiz ation Details LastModified Time 10/12/2024 US, obstetric, follow-up completed aly Elkins [address], [place], [address], 10/13/2024 19:17:18 10/13/2024 US, obstetric, biophysical profile completed [email or web address] [facility] [address], [address], 10/13/2024 13:40:44 10/13/2024 US, obstetric, biophysical profile completed [email or web address] [facility] [address], [place], [address], 10/16/2024 12:03:33 10/18/2024 US, obstetric, biophysical profile completed [email or web address] [facility] [address], [address], 10/18/2024 13:29:04 10/18/2024 US, obstetric, biophysical profile completed [email or web address] [address] [facility], [place], [address], 10/19/2024 13:11:06 Procedure Notes None recorded. Medical Equipment None Reported. Medications Name Sig Start Date Stop Date Status Note LastModified by Organization Details LastModified Time metronidazole 500 mg tablet Take 1 tablet twice a day by oral route for 7 days. 2024 active Not Available Not Available Not Avai lable mupirocin 2 % topical ointment APPLY TOPICALLY TO THE AFFECTED AREA THREE TIMES DAILY active Not Available Not Available No t Available aspirin active Not Available Not Avail able Not Available active Not Available Not Avai lable Not Available Vitals Date Recorded Body weight Body mass index (BMI) Body height Systolic blood pressure Diastolic blood pressure Provider Name and Address Organization Details Last Updated DateTime 10/12/2024 394056.3 98235 g 46.6 kg/m2 157.48 cm 138 mm[Hg] 92 mm[Hg] Sharita Hanley [place] [employer] [facility] 10:49:07 Date Recorded Body height Body mass index (BMI) Body weight Systolic blood pressure Diastolic blood pressure Provider Name and Address Organization Details Last Updated DateTime 10/18/2024 157.48 cm 46.6 kg/m2 176914.0 5 g 130 mm[Hg] 80 mm[Hg] Nicole Can [place] [employer] [facility] 11:42:20 Date Recorded Body height Body mass index (BMI) Body weight Systolic blood pressure Diastolic blood pressure Provider Name and Address Organization Details Last Updated DateTime 10/18/2024 157.48 cm 46.6 kg/m2 770010.6 2 g 130 mm[Hg] 70 mm[Hg] Nahid Elena [employer] IV 13:16:40 Date Recorded Systolic blood pressure Diastolic blood pressure Provider Name and Address Organization Details Last Updated DateTime 10/14/2024 140 mm[Hg] 80 mm[Hg] Juana Morales, [facility] [address] [facility], [place], [address], [employer] IV 10/14/2024 14:40:08 Social History Question Answer Notes LastModified by Organizat ion Details LastModified Time Tobacco Smoking Status 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 None Information not available 07/06/2024 Are You Blind Or Do You Have Difficulty Seeing? No Information not available 07/06/2024 Are You Deaf Or Do You Have Serious Difficulty Hearing? No Information not available 07/06/2024 What Type Of Diet Are You Following? REGULAR Information not available 07/06/2024 When Did You Quit Smoking? 1-5yearssin celastcilashonda lindo [email or web address] Information not available 09/21/2024 How Many Children Do You Have? 1 Information not available 07/06/2024 What Is Your Relationship Status? Information not available 07/06/2024 Are You Sexually Active? Yes Information not available 07/06/2024 At What Age Did You Start Smoking Tobacco? 22 Information not available 07/06/2024 How Much Tobacco Do You Smoke? 1 PPW Information not available 07/06/2024 How Many Years Have You Smoked Tobacco? 20 Information not available 07/06/2024 Sex: Unknown Functional Status Question Answer Note LastModified by Organizat [employer] Details LastModified Time Do you use any illicit or recreational drugs? No Information not available 07/06/2024 Do you or have you ever used any other forms of tobacco or nicotine? No Information not available 07/06/2024 What is your level of alcohol consumption? None Information not available 07/06/2024 Are you currently employed? Yes Information not available 07/06/2024 What is your exercise level? Occasional Information not available 07/06/2024 Mental Status None recorded. Family History Relationship Description Onset Age of this Age Resolved Age Notes LastModified by Organization Details LastModified Time Mother Kidney disease [email or web address] Not available 2024 09:54:13 Mother Hypertensive disorder [email or web address] Not available 2024 09:54:20 Maternal Grandmother Heart disease Not available 2024 09:54:50 Maternal Aunt Crome syndrome [email or web address] Not available 2024 09:55:26 Maternal Aunt Alzheimer's disease [email or web address] Not available 2024 09:55:36 Notes:mom/ high blood pressu re, dx stage 3 kidney disease Medical History Condition Response Other Cancer N High Blood Pressure N Colon Cancer N Cytomegalovirus N Hyperthyroidism N MRSA N Blood Transfusion N Herpes (HSV) N Breast Cancer N Lung Cancer N Hypothyroidism N Depression N Incontinence N Panic Attacks N Neurological Disorder N Deep Vein Thrombosis N Anxiety Disorder N Autoimmune disease N Arthritis N Shingles N Tuberculosis/Positive PPD N Infertility N Polycystic Ovarian Syndrome N Cervical Cancer N Chlamydia N Hematuria N Stroke N Varicosities N Seasonal allergies N Crohn's Disease N Alzheimer's/Dementia N COPD/Emphysema N Endometriosis N HPV/Genital Warts N IBS (Irritable Bowel Syndrome) N History of Abnormal Pap N High Cholesterol N Liver Disease N Kidney Infection N Fibromyalgia N Ulcer N Kidney Disease N HIV N Gallbladder disease N Von Willebrand disease N Sickle Cell Disease/Trait N ADD/ADHD N Eating Disorder N Diabetes Mellitus (non-insulin dependent ) N Anemia N Ovarian Problems N Multiple Sclerosis N Gonorrhea N Frequent Urinary Tract infections N Osteopenia N Headaches/migraines N GERD (reflux) N Ovarian Cancer N Diabetes (insulin dependent) N Seizures/Epilepsy N Breast Problems N Fibroids N Asthma N Heart Attack N Endometrial Cancer N Lupus N Rubella N Blood Clotting Disorder N Bipolar Disorder N Diabetes Mellitus (during ) N Ulcerative Colitis N Hepatitis N Heart Disease N Pulmonary Embolism N RPR N Chicken Pox N Osteoporosis N Gynecological History Statement/Question Response Date of last HPV Date of LMP 02/20/2024 HPV Vaccine N Duration of Flow (days) 3 Most Recent Mammogram Current Control Method Age at Menarche 14 If Post Menopausal, Age at Menopause Date of Last Colonoscopy Most Recent Bone Density Frequency of Cycle (Q days) 28 Date of Last Pap Smear Obstetrics History GPAL:G 3 P 0 1 1 1 Type Value Spontaneous 1 Premature 1 Living 1 Total 3 Past Encounters Encounter ID Performer Location Encounter Start Date Encounter Closed Date Diagnosis/Indication Diagnosis SNOMED-CT Code Diagnosis ICD10 Code Diagnosis Note [id number] SHARITA MEZA, [facility] [address] [place] [address] 07/06/2024 10:43:50 07/06/2024 13:18:29 High risk 11196506 O09.92 Gestation period, 14 weeks 68126959 Z3A.14 Ms. Pineda, a 43 yo presents to clinic today for a confirmati on of & 1st OB.- She refused to provide any urine.- Says her LMP was 02/19 or 03/21- She says that she knows there were things wrong prior to so she doesn't want to have labs drawn now to know if there is anything wrong.- Counseled at length with pt that she needs to provide a urine specimen & have labs drawn per all of our patients so that we can provide the best care to her & baby. Told her that she has 2 weeks to provide the specimens that are asked for otherwise, she'll be dismissed from the clinic.- Thus far she has received no PNC & has only been seen at [facility] for US & states she took 13 home UPTs- says she'd rather have baby at home in her bathtub with a stock manager, & I explained that is fine if that is her wish, but I'm unsure who she's going to find that will not draw any labs on her.- Says that she won't put or take any pharmaceut icals.- Educated how she should be taking a LDASA & her response was have you read the label on the bottle.- 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 She should discuss with her work that they should make accomodati ons for her to be safe.- Told her that she should come back in 4 wks.- At the end of the visit unsure that the pt will be back for care.- Throughout the visit pt was made aware that if she doesn't comply with what is being asked she's be dismissed. pt was discussed at length with Dr. Olivo. He advised that she has 2 weeks to comply & provide the urine & labs otherwise she'd be dismissed from the clinic & need to find care elsewhere. Zahida medrano thirty minutes spent with patient in consultati on (>50% face-to-fa ce). Patient labs and notes were reviewed. Patient questions were answered. Additional patient care was coordinate d. [id number] Juana Morales CNM [address] [address] 08/12/2024 12:07:05 08/12/2024 13:24:00 Gestation period, 20 weeks 85989854 Z3A.20 Bleeding f rom female genital tract during [id number] 1038411 O46.90 SAB precaution s given. FM awareness discussed. F/u in L&D if experienci ng leaking fluid, cramping not relieved by rest and fluids, bleeding with or without cramping; fever 100.4 x 24 hrs or 101 or greater anytime. screening 2437 [address]107 Z36.89 [id number] Juana Morales CNM [address] [address] 08/16/2024 12:09:30 08/16/2024 14:32:19 Multigravida of advanced maternal age 878436912 O09.522 screening for malformation 559772119 Z36.3 Gestation period, 20 weeks 49512453 Z3A.20 Right uppe r quadrant pain 793222935 R10.11 [id number] BAR[facility] [address] [address] 08/30/2024 12:50:47 08/30/2024 14:40:50 High risk 28922961 O09.92 Multigravi da of advanced maternal age 383499300 O09.522 screening for malformation 080423011 Z36.3 Gestation period, 22 weeks 03865717 Z3A.22 SAB precaution s given. FM awareness discussed. F/u in L&D if experienci ng leaking fluid, cramping not relieved by rest and fluids, bleeding with or without cramping; fever 100.4 x 24 hrs or 101 or greater anytime. Right uppe r quadrant pain 108167297 R10.11 Pt has appt for gallbladde r US on Friday [id number] [facility] [facility] [address] [place] [address] 10/12/2024 09:48:27 10/21/2024 15:22:02 Depression screening [id number] Z13.31 See Screening Section for EPDS Questionna pia ResultEPDS score 0- Gestation period, 28 weeks [id number] Z3A.28 screening 2437 95380 Z36.9 Excessive weight gain during [id number] O99.210 repeat growth US at 32 wks Low lying placenta 19078 2006 O44.40 recheck placenta at 32 weeks and growth US Increased blood pressure 38821188 R03.0 Right uppe r quadrant pain [id number] R10.11 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 Call our office or go to labor and delivery for the following: If you are less than 37 weeks and have move than 4 contractio ns an hour. Blurring of vision or spots before your eyes and/or HARuptured membranes or leakage of vaginal fluid -may be a steady trickle or large gush - may be clear, yellow, pink or green Decreased movement-- if your baby has stopped moving or is moving less than it normally does. Do Kick Counts as instructed .Vaginal bleeding-- bright red bleeding and/or clots needs medical care immediatel y. Any temperatur e above 100 degrees.An y burning or painful urination. Increased swelling in your face, hands, or feet.Stoma ch pains, cramps, nausea,or diarrhea. [id number] Juana Morales CNM [facility] [place] [address] [place] [address] 10/13/2024 13:33:39 10/13/2024 15:40:49 Reduced movement [id number] O36.8130 Gestation period, 29 weeks 22957450 Z3A.29 Denies vaginal bleeding, abdominal cramps, N/V, contractio ns, and LOF. Denies headache, vision changes, swelling of hands or face, or epigastric pain. movement awareness discussed. PTL precaution s reviewed See pt instructio ns section as well [id number] Juana Morales CNM [facility] [address] [place] [address] 10/14/2024 14:13:34 10/14/2024 14:44:24 Pre-eclampsia 573874245 O14.93 PreE discussed in detail. MFM referral was sent previously . Discussed progressio n of care in setting of early onset pre-eclamp arlyn. Possibilit y of delivery early if BP progressiv marcela worsen. Discussed MFM and possible transfer of care to [facility] based on MFM recommenda tion.All questions answered [id number] Sina Olivo MD [facility] [address] [place] [address] 10/18/2024 11:29:59 10/20/2024 14:50:29 Gestation period, 29 weeks 45152817 Z3A.29 Pre-eclampsia 491729703 O14.93 will get mfm consult w/Andre as she wants a tubal [id number] Juana Morales CNM [facility] [address] [place] [address] 10/18/2024 12:51:51 10/18/2024 13:57:02 Gestation period, 29 weeks 68251483 Z3A.29 Denies vaginal bleeding, abdominal cramps, N/V, contractio ns, and LOF. Denies headache, vision changes, swelling of hands or face, or epigastric pain. movement awareness discussed. PTL precaution s reviewed Vaginal irritation 83901 6004 N89.8 Boil on vulva. Pre-eclampsia 675365298 O14.93 Health Concerns Section Related Observation LastModified by Organization Detai ls LastModified Time None Recorded Concern Status LastModified by Organization Details LastModified Time None Recorded Advance Directives Directive None Recorded Payers Insurance Date Sequence Insurance Name Policy Number Policy Fitzgerald Covered Member ID Fitzgerald Member ID Guarantor Name 10/23/2024 1 [place] [employer] - [facility] PPO [id number] Minor Chandra Edwin [id number] Felicia Edwin 08/13/2024 1 [place] [employer] - [facility] PPGee Gaxiola Edwin [id number] Felicia Edwin Notes Date Note Type Note Provider Name and Address Organization Details Recorded Time 10/12/2024 text/html [facility] OB Return VisitReported bypatient. symptoms: movement normal; no movement (consistent with gestational age); normal vaginal discharge/no ROM; no bleeding; pelvic pressure; no contractions/mild cramping only Gastrointestinal:no gastrointestinal symptoms Cardiovascular:edema Musculoskeletal:back pain Neurologic:no headache; no visual changes Breast:plans to breast feed Social/psychiatric issues:no reported concerns with support system; no anxiety; no symptoms of depression Patient is here today for a routine OB visit. She is currently at {{6 7 8 9 10 11 12 13 14 15 16 17 18 19 20 2 1 22 23 24 25 26 27 28 29 30 31 32 33 34 35 36 37 38 39 40 41 28.6 #}} weeks gestation. vitamins: {{yes* no}} She {{has has not*}} felt movement.She denies any complaints of the presence of vaginal bleed, leaking fluid, abdominal cramps, nausea, vomiting, headache or visual disturbances KENDY DURON, BONY [address] [place], [address], [facility] 10/20/2024 21:26:51 10/18/2024 text/html The patient verb rosey consented to documentation via virtual scribe for this encounter. Patient is here today for a routine OB visit. She is currently at {{6 7 8 9 10 11 12 13 14 15 16 17 18 19 20 2 1 22 23 24 25 26 27 28 29 30 31 32 33 34 35 36 37 38 39 40 41 29.5 #}} weeks gestation. vitamins: {{yes* no}} She {{has* has not}} felt movement.Pt states she needs a implanon form stating its still inserted for her MRI. She denies any complaints of the presence of vaginal bleed, leaking fluid, abdominal cramps, nausea, vomiting, headache or visual disturbances. Sina Olivo MD [address] [place], [address], [facility] 10/19/2024 15:06:24 10/18/2024 text/html Felicia is here for vaginal problemspatient is 29.5 weekspatient c/o bump and rash on vaginal areapatient states baby has having good movement Juana Morales CNM [address] [place], [address], [facility] 10/18/2024 17:11:41 OBGyn Episode Ob Episode Information Episode Created Date Number of Fetuses Patient Bloodtype Patient rh Status Prepregnancy Weight lbs Domestic Partner Domestic Partner Phone Father Name General Dentist/Owner Status 08/13/19 25 1 CLOSED Fetus Data First Name Last Name Admitted to NICU Weight (g) Sex Living Outcome Pediatric Complications Fetus ID Race Codes Race Delivery Type 3316.66 4704 M Prematur e [id number] Lopez Calculation Initial Lopez Date Initial Exam Date Initial Exam Provider Initial Ultrasound Date Last Menstrual Period Date Ultra Sound Weeks Gestation 0 Eighteen To Twenty Week Lopez Update Ultra Sound Date Fundal Height At Umbil Quickening Date Ultra Sound Latest Weeks Gestation Final Lopez Confirmed By Final Lopez Confirmed Date Final Lopez Date Ultra Sound Latest Days Gestation 0 0 Menstrual History Last Menstrual Date Menses Monthly On Bcp Conception Prior Menses Frequency Hcg Plus Date Menarche Onset Age Delivery Information Delivery Date Delivery Type Labor Anesthesia Weeks Gestation Incision Type Labor Labor Length Hrs Delivered By Post Complications Tubal Sterilization Discharge Date Comments 0 35 Discharge Information Feeding Method Contraceptive Method Maternal HG B and HCT Levels Ob Episode Information Episode Created Date Number of Fetuses Patient Bloodtype Patient rh Status Prepregnancy Weight lbs Domestic Partner Domestic Partner Phone Father Name General Dentist/Owner Status 07/06/19 25 1 A Positive OPEN Fetus Data First Name Last Name Admitted to NICU Weight (g) Sex Living Outcome Pediatric Complications Fetus ID Race Codes Race Delivery Type [id number] Problems Problem Notes Problem Name Start Date End Date Resolution Snomed Code Not e Multigravida of advanced maternal age 0207/11/2024 [id number] Placenta previa marginalis 08/16/2024 39104131 ant placenta an d on 10-12-24 was 0.6cm from os Pre-eclampsia 10/14/2024 097119331 Her g rowth on 10/12/24 was 3 lbs and 4 oz athe the 8th percentile, AC at the 96th percentile. Normal amount of fluid. Low lying placenta 0.6 cm from the cervix. The placenta is anterior. p/c ratio was 600 on 10-12-24 and 10-14-24 had repeat labs and serum creat was 0.4 and ast<18 we will do twice weekly visits and bpp weekly until 32 weeks and then twice per weekp/c ratio 494 on 10-18-24 Cystocele 09/21/2024 125080519 desires P LTCs and tubal and discussed risks and benfits 10-18-24 Past history of premature delivery 10/18/2024 685781620 35 week PPROM a t age 18 Obese class III 08/15/2024 752900283 Maternal tobacco use 09/20/2024 359379996 Finding of urine substance level 09/20/2024 143168601 UDS for methamphetaminesrepeat uds on 10-21-24 Lopez Calculation Initial Lopez Date Initial Exam Date Initial Exam Provider Initial Ultrasound Date Last Menstrual Period Date Ultra Sound Weeks Gestation 12/29/2024 07/06/2024 sharita meza np 07/06/2024 02/20/2024 14 Eighteen To Twenty Week Lopez Update Ultra Sound Date Fundal Height At Umbil Quickening Date Ultra Sound Latest Weeks Gestation Final Lopez Confirmed By Final Lopez Confirmed Date Final Lopez Date Ultra Sound Latest Days Gestation 0 0 Pre-sen Flowsheet Flowsheet Date 07/06/2024 Quintanilla Score Blood Edema Fundus Height Fundus Units Glucose Ketones Leukocytes Nitrite Labor Signs Protein Cervic Dilation Cervic Effacement Cervic Station none none Type Weight in lbs Pre/Post Dialysis Refused With clothes 230.286547655146 BP Diastolic BP Location Tested BP Systolic BP Type 82 126 sitting Fetus Heart Rate Present A 150 Present Fetus Movement A Yes Comments 1st OB & confirmation visit. Refused to give urine & labs. Has only received US thus far at [facility]. Discussed to receive care she needs to provide urine & labs within 2 wks otherwise she'll be dismissed from the clinic. See A&P for further comments. Flowsheet Date 08/12/2024 Quintanilla Score Blood Edema Fundus Height Fundus Units Glucose Ketones Leukocytes Nitrite Labor Signs Protein Cervic Dilation Cervic Effacement Cervic Station Type Weight in lbs Pre/Post Dialysis Refused With clothes 238.210462506837 BP Diastolic BP Location Tested BP Systolic BP Type 80 130 sitting Fetus Heart Rate Present A 147 Fetus Movement A Yes Comments urgent care d/t vaginal blee ding s/p intercourse. No evidence of active bleeding on spec exam. Cervix visually closed. Normal US. NOB labs obtained. Pt declined MSAFP. F/u next week for anatomy scan. Bleeding precautions and FM awareness discussed in detail. Pt had categorically refused to allow blood work on previous encounters. After detailed discussion about benefits and risks of blood work, pt agreeable to all necessary care requirements. Flowsheet Date 08/16/2024 Quintanilla Score Blood Edema Fundus Height Fundus Units Glucose Ketones Leukocytes Nitrite Labor Signs Protein Cervic Dilation Cervic Effacement Cervic Station Type Weight in lbs Pre/Post Dialysis Refused With clothes 238.348370686393 BP Diastolic BP Location Tested BP Systolic BP Type 80 130 sitting Fetus Heart Rate Present Fetus Movement A Yes Comments Anatomy incomplete. Need olga al bone. F/u in 2 wks to complete anatomy scan. RUQ x 4 wks. Pt left prior to getting labs done. Flowsheet Date 08/30/2024 Quintanilla Score Blood Edema Fundus Height Fundus Units Glucose Ketones Leukocytes Nitrite Labor Signs Protein Cervic Dilation Cervic Effacement Cervic Station Type Weight in lbs Pre/Post Dialysis Refused With clothes 240.307332163322 BP Diastolic BP Location Tested BP Systolic BP Type 80 130 sitting Fetus Heart Rate Present A 155 Fetus Movement A Yes Comments Anatomy scan complete. RUQ p ain - labs obtained. US for gallbladder on Friday. Discussed positive UDS - pt denies use of amphetamines but reports she was taking sudafed for a while. F/u in 4 wks w/. Flowsheet Date 09/21/2024 Quintanilla Score Blood Edema Fundus Height Fundus Units Glucose Ketones Leukocytes Nitrite Labor Signs Protein Cervic Dilation Cervic Effacement Cervic Station none neg Type Weight in lbs Pre/Post Dialysis Refused 246.770592802737 BP Diastolic BP Location Tested BP Systolic BP Type 98 138 sitting Fetus Heart Rate Present Fetus Movement Comments Flowsheet Date 10/12/2024 Quintanilla Score Blood Edema Fundus Height Fundus Units Glucose Ketones Leukocytes Nitrite Labor Signs Protein Cervic Dilation Cervic Effacement Cervic Station 1+ none none trace Type Weight in lbs Pre/Post Dialysis Refused With clothes 254.640632113360 BP Diastolic BP Location Tested BP Systolic BP Type 92 138 sitting Fetus Heart Rate Present A 155 Fetus Movement A Yes Comments -AC 96%, EFW 85.3%-low lying placenta is 0.6cm from internal os, continue pelvic rest, CL 2.1cm - rx for jet wrist splints for carpal tunnel -right upper quad pain persistent had normal gallbladder US on 09/03, discussed with Dr Samuel plan to obtain right upper quad MRI- pitting edema, headaches, slight elevation in BP- PC ratio, CMP, uric acid, 1 hr gtt, 3T labs today Flowsheet Date 10/13/2024 Quintanilla Score Blood Edema Fundus Height Fundus Units Glucose Ketones Leukocytes Nitrite Labor Signs Protein Cervic Dilation Cervic Effacement Cervic Station Type Weight in lbs Pre/Post Dialysis Refused BP Diastolic BP Location Tested BP Systolic BP Type Fetus Heart Rate Present Fetus Movement Comments US visit - absent FM. BPP 01/14; Reassurance provided. FM counts BID. F/u next routine appt. sooner if experiencing problems. Flowsheet Date 10/14/2024 Quintanilla Score Blood Edema Fundus Height Fundus Units Glucose Ketones Leukocytes Nitrite Labor Signs Protein Cervic Dilation Cervic Effacement Cervic Station Type Weight in lbs Pre/Post Dialysis Refused BP Diastolic BP Location Tested BP Systolic BP Type 80 140 Fetus Heart Rate Present A 152 Fetus Movement A Yes Comments UC - see A/P Flowsheet Date 10/18/2024 Quintanilla Score Blood Edema Fundus Height Fundus Units Glucose Ketones Leukocytes Nitrite Labor Signs Protein Cervic Dilation Cervic Effacement Cervic Station trace none neg Type Weight in lbs Pre/Post Dialysis Refused With clothes 255.131132406599 BP Diastolic BP Location Tested BP Systolic BP Type 80 130 sitting Fetus Heart Rate Present A 130 Present Fetus Movement A Yes Comments Her growth on 10/12/24 was 3 lbs and 4 oz athe the 8th percentile, AC at the 96th percentile. Normal amount of fluid. Low lying placenta 0.6 cm from the cervix. The placenta is anterior. Flowsheet Date 10/18/2024 Quintanilla Score Blood Edema Fundus Height Fundus Units Glucose Ketones Leukocytes Nitrite Labor Signs Protein Cervic Dilation Cervic Effacement Cervic Station Type Weight in lbs Pre/Post Dialysis Refused With clothes 254.057922538883 BP Diastolic BP Location Tested BP Systolic BP Type 70 130 sitting Fetus Heart Rate Present Fetus Movement A Yes Comments Pt was seen early for regula r OB appt. Came over here because she had vaginal irritation & a boil. Did not want to be examined at her routine appt. BPP 01/14. Has f/u appt on w/MFM at [facility] Menstrual History Last Menstrual Date Menses Monthly On Bcp Conception Prior Menses Frequency Hcg Plus Date Menarche Onset Age 0902/20/2024 true false Delivery Information Delivery Date Delivery Type Labor Anesthesia Weeks Gestation Incision Type Labor Labor Length Hrs Delivered By Post Complications Tubal Sterilization Discharge Date Comments Discharge Information Feeding Method Contraceptive Method Maternal HG B and HCT Levels
--- OUTSIDE RECORDS SUMMARY | 2024-10-29 16:24 | XMS_ITS | Encounter Summary ---
Author Organization [facility] Healthcare Address [address] [place] [address] Care Team Providers Care Basin Tender Name Role Phone No, Physician Primary Care Provider [phone] Encounter Details Date Type Department Care Team (Late st Contact Info) Description 10/29/2024 Encounter [facility] [address] [place] [id number] Social History Tobacco Use Types Packs/Day Years Used Date Smoking Tobacco: Never Assessed [facility] Utilities Answer Date Recorded In the past 12 months has [employer] electric, gas, oil, or water company threatened [...] often do you attend chur ch or congregation services? Never 10/28/2024 Do you belong to any clubs o r organizations such as jew groups, unions, fraternal or athletic groups, or [...] any time in the past 12 m [facility], were you homeless or living in a retirement (including now)? No 10/28/2024 Personal Safety Answer [...] on file Sexual Orientation Not on file documented as of this encounter Miscellaneous Notes * Note - Lexie Art RN - 10/29/2024 10:59 AM CDT This note was copied from a baby's chart. Consult Note Patient name: Cesilia Pineda Mother's Name: Felicia Pineda Mother's Age: 41 y.o. /Para/: Father's Name: Date of : 10/25/2024 Time of : 6:00 PM Delivery Type: Today's Date: 10/29/2024 Admission Date: 10/25/2024 6:23 PM Weight: 1986 g (4 lb 6.1 oz) Length: 16.654 Current Gestational Age: 31w 2d Patient Active Problem List Diagnosis of 30 completed weeks of gestation RDS (respiratory distress syndrome in the ) ([facility]) affected by maternal pre-eclampsia LGA (large for gestational age) infant Enterprise affected by maternal polyhydramnios hypoglycemia Immature thermoregulation Enterprise affected by placental abruption Respiratory failure in ([facility]) Other feeding problems of Central apnea in Hyperbilirubinemia of prematurity Note: Spoke with mother at bedside. Discussed her daily milk volumes. Volumes are steady, . I encouraged continued frequent pumping. Mother complains of slight discomfort with pumping, encouraged to stay at 50% on suction and to limit to 15-20 minutes. Discussed making sure flanges are centered on the nipple. Comfort gels given and nipple balm/oil discussed. Mom states pump in room not working well, will replace, in meantime, knows where the pumping rooms are, and states that pump is working for her.Discussed pumping q 2-3 hours during the day and going no longer than 4-5 hours at night. Discussedproper hydration and nutrition while pumping/. Reviewed risk factors and discussed that they could delay supply. I encouraged daily skin to skin care when able. Mother has no other concerns at this time. Support and encouragement offered. Pumping History: Date mother first providing breastmilk/pumping: Date Initiated: 10/26/24 Flange Size: 22.5 Number of pump sessions: Amount pumped per session: Amount Pumped per Session (mL): (drops) Total amount pumped in 24 hours: Type of Pump for Home Use: Type of Pump: Ameda [place], wearable documented in this encounter Plan of Treatment Not on file documented as of this encounter Visit Diagnoses Not on filedocumented in this encounter Care Teams Basin Tender Relationship Specialty Start Date End Date No, Physician PCP - General 10/14/24 documented as of this encounter
--- OUTSIDE RECORDS SUMMARY | 2024-10-29 16:24 | XMS_ITS | Referral Summary ---
Author Organization [facility] Address [address] [place] [address] Care Team Providers Care Salesperson Surgical Appliances Name Role Phone No, Physician Primary Care Provider [phone] Encounters Date Type Department Care Team Description 10/29/[address] [facility] [address] [place] [address] 10/25/2024 5:46 PM CDT - 10/28/2024 5:00 PM CDT Hospital Encounter [address] [phone] Jacobo Andre MD Discharge Disposition: Discharge to home or self care 10/25/2024 5:50 PM CDT Anesthesia Event [address] [phone] Sommer Torres MD Johnson, Christine Anne, CRNA 10/25/2024 6:00 PM CDT - 10/25/2024 8:30 PM CDT Surgery [address] [phone] Eufemia Dean MD SECTION 10/25/2024 3:15 PM CDT - 10/25/2024 11:59 PM CDT Hospital Encounter [facility] [address] [place] [address] Supervision of high-risk , unspecified trimester; AMA (advanced maternal age) multigravida 35+, third trimester; Obesity affecting in third trimester, unspecified obesity type; Pre-eclampsia affecting , antepartum; Marginal placenta previa Discharge Disposition: Discharge to home or self care 10/25/2024 3:00 PM CDT Clinical Support [facility] Obstetrics and Gynecology [address] [address] [place] [phone] AMA (advanced maternal age) multigravida 35+, third trimester (Primary Dx); Supervision of high-risk , third trimester; Pre-eclampsia affecting , antepartum; Polyhydramnios in third trimester, not applicable or unspecified fetus; Obesity affecting in third trimester, unspecified obesity type 10/24/2024 Nurse Triage [address] [phone] Elly Christina RN 10/21/2024 4:24 PM CDT - 10/21/2024 11:59 PM CDT Hospital Encounter [address] [address] Supervision of high-risk , unspecified trimester; AMA (advanced maternal age) multigravida 35+, third trimester Discharge Disposition: Discharge to home or self care 10/21/2024 3:30 PM CDT Office Visit [facility] Maternal- Medicine [facility] [address] [facility] [address] [place] [phone] AMA (advanced maternal age) multigravida 35+, third [...] - 10/21/2024 11:59 PM CDT Hospital Encounter [facility] [address] [place] [phone] Supervision of high-risk , unspecified trimester Discharge Disposition: Discharge to home or self care 10/19/2024 Telephone [facility] Obstetrics and Gynecology [address] [place] [address] Coleen Carrington 10/18/2024 Telephone [facility] Obstetrics and Gynecology [address] [place] [address] Coleen Carrington 10/15/2024 Telephone [facility] Maternal- Medicine [address] [facility] 7th Floor [address] [place] [address] Tracy Yuen CMA Scheduling US/OB Consult from Last 3 Months Allergies Active Allergy Reactions Criticality Noted Date [...] Diagnosed Date Placental abruption in third trimester Encounter for routine follow-up 10/25 Overview (10/28/2024): [...] # Disposition: Follow up task sent to [facility] scheduling pool for appointments in 2 [...] starting at 12 weeks Obesity complicating [facility] 10/19/2024 Overview (10/22/2024): Pre- BMI: >40 [...] recommendations for preeclampsia Supervision of high-risk [facility] 10/19/2024 Overview (10/22/2024): [] OB consult only, [x] Co-management vs. [] Full M Care; [] Red Team [] Blue Team Referring Provider: Génesis Melara [phone] [] or Medicare Insurance [x] Dating Criteria: [...] vasectomy [] Method of feeding: breast [] Paper Sales Representative (specifically which provider): [] PP Depression Discussed: [...] at 37 weeks (or sooner if indicated) Social History Tobacco Use Types Packs/Day Years Used Date Smoking Tobacco: Never Assessed [facility] Utilities Answer Date Recorded In the [...] often do you attend chur ch or mandaen services? Never 10/28/2024 Do you belong to any clubs o r organizations such as latter day groups, unions, fraternal or athletic groups, or [...] any time in the past 12 [facility], were you homeless or living in a residential (including now)? No 10/28/2024 Personal Safety Answer [...] on file Sexual Orientation Not on file Last Filed Vital Signs Vital Sign Reading [...] 10/25/2024 8:32 PM CDT Plan of Treatment Not on file Procedures Procedure Name Priority Date/Time Associated Diagnosis [...] CDT FIBRINOGEN STAT 10/25/2024 6:12 PM CDT TX AN PROCEDURE PLACEHOLDER Routine 10/25/2024 6:10 PM CDT TX AN PROCEDURE PLACEHOLDER Routine 10/25/2024 6:09 PM CDT TX AN ELECTIVE ENDOTRACHEAL AIRWAY Routine 10/25/2024 6:09 PM CDT SECTION 10/25/2024 5:49 PM CDT Case Notes Level 1 from [facility] for abruption NONSTRESS TEST Routine 10/25/2024 3:57 [...] (advanced maternal age) multigravida 35+, third trimester TX REMOVAL NON-BIODEGRADABLE DRUG DELIVERY IMPLANT Routine 10/21/2024 [...] pathogen panel Nasopharyngeal (10/28/2024 10:30 AM CDT) Pathologist [facility] Influenza A RNA Not Detected Not Detected Influenza B RNA Not Detected Not Detected [facility] RSV RNA Not Detected Not Detected [facility] COVID-19 RNA Not Detected Not Detected [facility] Coronavirus 229E RNA Not Detected Not Detected [facility] Coronavirus HKU1 RNA Not Detected Not Detected [facility] Coronavirus NL63 RNA Not Detected Not Detected [facility] Coronavirus OC43 RNA Not Detected Not Detected [facility] Adenovirus DNA Not Detected Not Detected [facility] Metapneumovirus RNA Not Detected Not Detected [facility] Rhinovirus/Enterov irus RNA Not Detected Not Detected [facility] Parainfluenza 1 RNA Not Detected Not Detected [facility] Parainfluenza 2 RNA Not Detected Not Detected [facility] Parainfluenza 3 RNA Not Detected Not Detected [facility] Parainfluenza 4 RNA Not Detected Not Detected [facility] B. pertussis DNA Not Detected Not Detected [facility] B. parapertussis DNA Not Detected Not Detected [facility] C. pneumoniae DNA Not Detected Not Detected [facility] M. pneumoniae DNA Not Detected Not Detected [facility] Nasopharyngeal 10/28/2024 10 :30 AM CDT 10/28/2024 11:30 AM CDT Narrative [facility] - 10/28/2024 12:29 PM CDT Is the Patient experiencing symptoms consistent with COVID?->Yes Surveillance testing for transplant patient?->No Interpretive Data The Connectem FilmArray Respiratory Panel (RP2.1) assay is a multiplexed [...] assay has FDA clearance for testing of COVERAGE SPECIALIST RN swabs. The performance of additional specimen types has been assessed by the performing laboratory. The performance characteristics of this assay have been determined by [facility] Molecular Infectious Disease Laboratory. Current interpretive data was last revised on 22. Zoraida Schwartz COVERAGE SPECIALIST RN LAB MICROBIOLOGY - GENERAL ORDERABLES Final Result [facility] Department [place] [address] * (ABNORMAL) Drug screen, urine (10/26/2024 9:46 AM CDT) [facility] Drug screen, ur Positive(A) Comment: The following compounds were detected: Hydromorphone Repeated and verified. Sheet Heater Helper review to follow. Interpretive Data This test [...] occur in very rare circumstances. Contact the [facility] core laboratory for consultation if needed. This test was developed and its performance characteristics determined by [facility]. It has not been cleared or approved by the U.S. Food and Drug Administration. Current interpretive data was last revised 2022. Testing performed by: [place]., [address] Director Review Verified [facility] Comment: Upon Sheet Heater Helper review, no additional compounds were detected. Testing performed by: [place]., [address] Urine 10/26/2024 9:46 AM CDT 10/26/2024 10:18 AM CDT Narrative [facility] - 10/26/2024 12:27 PM CDT Is patient or admitted for delivery?->No [id number] us Jacobo Andre MD LAB URINE ORDERABLES Final Result Performing Organization Address City/State/[facility] Co de Phone Number [facility] Department [place] [address] * (ABNORMAL) CBC without differential (10/26/2024 4:55 AM CDT) [facility] WBC 22.23(H) 3.80 - 9.90 K/cumm Hgb 10.8(L) 11.9 - 15.5 g/dL [facility] Hct 29.9(L) 35.6 - 45.5 % [facility] Plt 190 150 - 400 K/cumm [facility] MPV 10.8 9.1 - 12.3 fL [facility] RBC 3.28(L) 3.90 - 5.20 M/cumm [facility] MCV 91.2 81.3 - 96.4 fL [facility] MCH 32.9 27.1 - 33.3 pg [facility] MCHC 36.1(H) 32.3 - 35.7 g/dL [facility] RDW CV 14.3 11.1 - 14.9 % [facility] RDW SD 46.2 35.7 - 48.1 fL [facility] NRBC abs 0.02(H) 0.00 - 0.01 K/cumm [facility] Blood 10/26/2024 4:55 AM CDT 10/26/2024 5:19 AM CDT us Jacobo Andre MD LAB BLOOD ORDERABLES Final Result Performing Organization Address City/State/[facility] Co de Phone Number [facility] Department [place] [address] * XR Chest 1 View (10/25/2024 9:23 [...] technique. Electronically signed by: Arpit Garnica M.D. us Jacobo Andre MD IMG XR PROCEDURES Final Res ult * Surgical pathology (10/25/2024 6:57 PM CDT) Tissue (Placenta) 10/25/2024 6:57 PM CDT 10/26/2024 8:38 AM CDT Narrative PATHOLOGY [facility] - 10/29/2024 12:29 PM CDT EPIC results best viewed via link to PDF [facility] [place] [address] Note to Patients: This report may contain [...] Gender: F : 1980 (Age: 43) Address: [address] [place], [place] [id number] Hospital #: [id number] Taken:10/25/2024 Received:10/26/2024 Reported: 10/29/2024 Patient Type: [facility] Inpatient Service: Obstetrics Location: [place] [address] Physician(s): Mohsen Gallegos M.D. Diagnosis: A. Placenta, section delivery - 531 grams, appropriate for gestational age (AGA 10-90th %ile) pre term placenta - Accelerated villous maturation - Trivascular cord with no histopathologic abnormalities /10/29/2024 08:39 By this signature, I attest that [...] from 2.2-3.1 cm. Summary of sections: A1 Solar Consultant membranes and umbilical cord A2-A3 Solar Consultant normal central placenta, full-thickness bisected A4 Solar Consultant normal central placenta, full-thickness Jar: 3 dxb/10/27/2024 10:42 PA(s): Laron Del Rio Annie, ELVA([facility])CM By this signature, I attest that the above diagnosis is based upon my personal examination of the slides(and/or other material). Addenda/Procedures The performance characteristics of some immunohistochemical stains, fluorescence in-situ hybridization tests and immunophenotyping by flow cytometry cited in this report (if any) were determined by the Surgical Pathology and Flow Cytometry Departments at [facility] as part of an ongoing data quality consultant program and in compliance with federally mandated [...] Surgical Pathology and Flow Cytometry Departments of [facility]. It has not been cleared or approved by the U. S. Food and Drug Administration. IMAGES AND SCANNED DOCUMENTS, IF INCLUDED, ONLY VIEWABLE IN PDF VERSION OF REPORT Jacobo Andre MD LAB PATHOLOGY ORDERABLES Fi nal Result PATHOLOGY [facility] 3rd Floor [place], [place] [phone] * Check Sample (10/25/2024 6:51 PM CDT) Pathologist [facility] ABO Rh A Positive [facility] HCLL OTHER 10/25/2024 6:51 PM CDT 10/25/2024 7:29 PM CDT Jacobo Andre MD LAB BLOOD ORDERABLES Final Result [facility] Department [place] [address] [facility] * HIV 1/2 Antibody plus p24 Antigen Blood (10/25/2024 6:51 PM CDT) Pathologist [facility] HIV 1/2 ab + p24 ag Nonreactive Nonreactive Comment:Nonreactive for HIV- 1 antigen and HIV-1/HIV-2 antibodies. No laboratory evidence of HIV infection. If acute HIV infection is suspected, consider testing for HIV-1 RNA. Current interpretive data was last revised on 22. Blood 10/25/2024 6:51 PM CDT 10/25/2024 7:02 PM CDT Jacobo Andre MD LAB MICROBIOLOGY - GENERAL ORDERABLES Final Result Performing Organization Address City/[facility] Co de Phone Number [facility] [place] [address] * RPR Blood (10/25/2024 6:51 PM CDT) RPR Nonreactive Nonreactive Blood 10/25/2024 6:51 PM CDT 10/25/2024 6:57 PM CDT Jacobo Andre MD LAB MICROBIOLOGY - GENERAL ORDERABLES Final Result Performing Organization Address City/[facility] Co de Phone Number [facility] Department [place] [address] * eGFR (10/25/2024 6:12 PM CDT) eGFR [...] BLOOD ORDERABLES Final Result Performing Organization Address [facility] [place] [address] * (ABNORMAL) aPTT (10/25/2024 6:12 PM CDT) [...] BLOOD ORDERABLES Final Result Performing Organization Address [facility] [place] [address] * Protime-INR (10/25/2024 6:12 PM CDT) PT 9.7 9.7 - 13.0 sec INR 0.90 0.90 - 1.20 [facility] Comment: Interpretive data Oral anticoagulant therapeutic ranges: Venous thromboembolism prophylaxis or treatment: 2.0-3.0 CARDIOLOGY Standard range: 2.0-3.0 High-intensity range: 2.5-3.5 Refer to indication-specific guidelines for appropriate target ranges for prosthetic heart valve replacement. Current interpretive data was last revised on 2019. Blood 10/25/2024 6:12 PM CDT 10/25/2024 6:26 PM CDT Result [facility] Jacobo Andre MD LAB BLOOD ORDERABLES Final Result Performing Organization Address [facility] de Phone Number [facility] [place] [address] * (ABNORMAL) Fibrinogen (10/25/2024 6:12 PM CDT) Pathologist [facility] Fibrinogen 532(H) 170 - 400 mg/dL Blood 10/25/2024 6:12 PM CDT 10/25/2024 6:26 PM CDT Jacobo Andre MD LAB BLOOD ORDERABLES [place] [address] * (ABNORMAL) CBC without differential (10/25/2024 6:12 PM CDT) [facility] WBC 15.50(H) 3.80 - 9.90 K/cumm Hgb 12.1 11.9 - 15.5 g/dL [facility] Hct 34.5(L) 35.6 - 45.5 % [facility] Plt 235 150 - 400 K/cumm [facility] MPV 11.1 9.1 - 12.3 fL [facility] RBC 3.76(L) 3.90 - 5.20 M/cumm [facility] MCV 91.8 81.3 - 96.4 fL [facility] MCH 32.2 27.1 - 33.3 pg [facility] MCHC 35.1 32.3 - 35.7 g/dL [facility] RDW CV 14.2 11.1 - 14.9 % [facility] RDW SD 46.3 35.7 - 48.1 fL [facility] NRBC abs 0.05(H) 0.00 - 0.01 K/cumm [facility] Blood 10/25/2024 6:12 PM CDT 10/25/2024 6:28 PM CDT Jacobo Andre MD LAB BLOOD ORDERABLES Final Result [facility] [place] [address] * Type and screen (10/25/2024 6:12 PM CDT) Saman, indirect Negative ABO Rh A Positive [facility] Blood 10/25/2024 6:12 PM CDT 10/25/2024 6:28 PM CDT Jacobo Andre MD LAB BLOOD BANK TEST ORDERAB LES Final Result [facility] Department [place] [address] * (ABNORMAL) Comprehensive metabolic panel (10/25/2024 6:12 PM CDT) Sodium 138 135 - 145 mmol/L Potassium, pl 3.8 3.3 - 4.9 mmol/L [facility] Chloride 102 97 - 110 mmol/L [facility] CO2 25 22 - 32 mmol/L [facility] Anion gap 11 2 - 15 mmol/L [facility] BUN 8 6 - 25 mg/dL [facility] Creatinine 0.57(L) 0.60 - 1.10 mg/dL [facility] Glucose 148 70 - 199 mg/dL [facility] Comment: Interpretive Data Fasting glucose >/= 126 [...] 2022. Calcium 8.9 8.5 - 10.3 mg/dL [facility] Bilirubin, total <0.2 0.1 - 1.2 mg/dL [facility] Protein, pl 5.7(L) 6.5 - 8.5 g/dL [facility] Albumin 2.9(L) 3.5 - 5.0 g/dL [facility] Alk phos 121 40 - 130 Units/L [facility] ALT 16 7 - 45 Units/L [facility] AST 22 10 - 45 Units/L [facility] Blood 10/25/2024 6:12 PM CDT 10/25/2024 6:29 PM CDT Jacobo Andre MD LAB BLOOD ORDERABLES Final Result [facility] Department [place] [address] * TX AN PROCEDURE PLACEHOLDER (10/25/2024 6:10 PM CDT) [...] patient tolerated procedure well with no complications Result [facility] Sommer Torres MD ANESTHESIA ORDERABLES Final Result * TX AN ELECTIVE ENDOTRACHEAL AIRWAY, TX AN PROCEDURE PLACEHOLDER (10/25/2024 6:09 PM CDT) [...] TV scanning not repeated at this examination. [facility] visit to follow. Narrative Procedure Note Dennis Lopes MD - 10/25/2024 IMPRESSION: IUP - 30w 5d The BPP is reassuring. Anterior placenta previa per prior US. TV scanning not repeated at thisexamination. [facility] visit to follow. us Dana Aguirre MD IMG OB US PROCEDURES Final R esult * Vaginal ThinPrep processing (Molecular Component) (10/21/2024 4:33 PM CDT) Pathologist [facility] Vaginal ThinPrep processing (Molecular component) Specimen received for processing. [facility] Vaginal 10/21/2024 4:33 PM CDT 10/22/2024 9:34 AM CDT us Dana Aguirre MD LAB BODY FLUIDS AND STOOLS O RDERABLES Final Result [facility] Department [place] [address] [facility] * Pap with reflex to High Risk HPV and Genotyping (Cytology Component) (10/21/2024 4:33 PM CDT) Thin prep (Pap test) 10/21/2024 4:33 PM CDT 10/21/2024 7:12 PM CDT Narrative PATHOLOGY [facility] - 10/27/2024 3:38 PM CDT EPIC results best viewed via link to PDF [facility] [place] [address] Note to Patients: This report may contain [...] Gender: F : 1980 (Age: 43) Address: [address] [place] [id number] Hospital #: [id number] Service: C++ QUANT DEVELOPER Location: Patient Type: [facility] SPECIMEN Taken: 10/21/2024 Received: 10/21/2024 Accessioned: 10/22/2024 Reported: 10/27/2024 Physician(s): Dana Aguirre M.D. FINAL INTERPRETATION SOURCE OF SPECIMEN Liquid based Thin Prep pap with Reflex HPV: STATEMENT OF ADEQUACY - Satisfactory for evaluation - Endocervical cells/transformation zone sample absent GENERAL CATEGORIZATION: - Negative for squamous intraepithelial lesion or malignancy 10/27/2024 15:38 LORNA Santana(ASCP) Report Electronically Reviewed and [...] clinical information and biopsy results as indicated. [facility] Clinical Laboratory Improvement Amendments (CLIA) mandate that cytologic and histologic results be correlated for laboratory director of quality control & improvement standards. FOR ALL [...] determined by the Surgical Pathology Department at [facility] as part of an ongoing data quality consultant program and in compliance with federally mandated [...] determined by the Surgical Pathology Department of [facility]. It has not been cleared or approved by the U. S. Food and Drug Administration. us Dana Aguirre MD LAB CYTOLOGY ORDERABLES Annita l Result PATHOLOGY [facility] 3rd Floor [place], [place] [phone] * [place] REMOVAL NON-BIODEGRADABLE DRUG DELIVERY IMPLANT (10/21/2024 3:30 [...] 1/2 Antibody plus p24 Antigen Blood (10/12/2024) SCRIBED HIV P24 Nonreactive Nonreactive , Invalid Blood Charlene Melara NP LAB MICROBIOLOGY - GENERAL OR DERABLES Final Result * RPR Blood (10/12/2024) SCRIBED RPR Non-Reacti ve Non-Reacti ve Blood Result [facility] Charlene Melara NP LAB MICROBIOLOGY - GENERAL OR DERABLES Final Result * CBC without differential (10/12/2024) Pathologist [facility] Hct 40.4 Hgb 13.6 Plt 237 Blood Result [facility] Charlene Melara NP LAB BLOOD ORDERABLES Final Re sult * HIV 1/2 Antibody plus p24 Antigen Blood (08/12/2024) SCRIBED HIV P24 Nonreactive Nonreactive , Invalid Blood Charlene Melara NP LAB MICROBIOLOGY - GENERAL OR DERABLES Final Result * Hemoglobin analysis by electrophoresis (08/12/2024) Pathologist [facility] Scribed Hemoglobin Electrophoresis Normal Blood Charlene Melara NP LAB BLOOD ORDERABLES Final Re sult * Hepatitis C antibody Blood (08/12/2024) Pathologist [facility] SCRIBED HCV ab non-reacti ve Blood Result [facility] Charlene Melara NP LAB MICROBIOLOGY - GENERAL OR DERABLES Final Result * ABO/Rh (08/12/2024) Pathologist [facility] SCRIBED ABO/Rh A+ Blood Charlene Melara NP LAB BLOOD BANK TEST ORDERABLE S Final Result * Rubella IgG antibody Blood (08/12/2024) Pathologist [facility] Rubella IgG Scribed Immune Blood Charlene Melara NP LAB MICROBIOLOGY - GENERAL OR DERABLES Final Result * RPR Blood (08/12/2024) Pathologist [facility] SCRIBED RPR Non-Reacti ve Non-Reacti ve Blood Charlene Melara NP LAB MICROBIOLOGY - GENERAL OR DERABLES Final Result * Hepatitis B Surface Antigen Blood (08/12/2024) Pathologist [facility] SCRIBED HBsAg Nonreactive Nonreactive , Invalid Blood Charlene Melara NP LAB MICROBIOLOGY - GENERAL OR DERABLES Final Result * CBC without differential (08/12/2024) Pathologist [facility] Hct 37.9 Hgb 12.9 Plt 237 Blood Charlene Melara LAB BLOOD ORDERABLES Final Re sult * Antibody screen (08/12/2024) SCRIBED Indirect Antiglobulin negative Blood Charlene Melara LAB BLOOD BANK TEST ORDERABLE S Final Result * Chlamydia trachomatis culture (08/12/2024) SCRIBED Chlamydia culture negative Charlene Melara LAB MICROBIOLOGY - GENERAL OR DERABLES Final Result * Urine culture (08/12/2024) SCRIBED Urine culture no growth Charlene Kelton LAB MICROBIOLOGY - GENERAL OR DERABLES Final Result * N. gonorrhoeae culture (08/12/2024) SCRIBED [facility]onorrhea [facility] [address] LAB MICROBIOLOGY - GENERAL OR DERABLES Final Result * Varicella Zoster IgG antibody Blood (08/12/2024) SCRIBED Varicella Zoster, IgG Positive Blood Charlenefranc Melara LAB MICROBIOLOGY - GENERAL OR DERABLES Final Result from Last 3 Months Insurance [employer] [facility] BLUE ACCESS CHOICE [place] Advance Directives For more information, please contact: [phone] * Full Code (Latest Code Status on File) Date Activated Date Inactivated Comments 10/25/2024 7:35 PM 10/28/2024 9:39 PM * Full Code Date Activated Date Inactivated Comments 10/25/2024 6:12 PM 10/25/2024 7:35 PM Full CPR in case of cardiopulmonary arrest Care Teams Salesperson Surgical Appliances Relationship Specialty Start Date End Date No, Physician PCP - General 10/14/24
--- OUTSIDE RECORDS SUMMARY | 2024-10-29 16:24 | XMS_ITS | Encounter Summary ---
Author Organization [facility] Healthcare Address [address] [place] [address] Care Team Providers Care Brand Development Manager Name Role Phone No, Physician Primary Care Provider [phone] Reason for Visit * Auth/Cert (Routine) Specialty Diagnoses / Procedures Referred By Contac t Referred To Contact Diagnoses Placental abruption in third trimester Procedures n/a Referral ID Status Reason Start Date Expiration Date Visits Re quested Visits Authorized [id number] 1 1 Encounter Details Date Type Department Care Team (Latest Contact Info) Description 10/25/2024 5:46 PM CDT - 10/28/2024 5:00 PM CDT Hospital Encounter [address] [phone] Jacobo Andre MD [address] [facility] [phone] [place] [address] Discharge Disposition: Discharge to home or self care Social History Tobacco Use Types Packs/Day Years Used Date Smoking Tobacco: Never Assessed [facility] Utilities Answer Date Recorded In the past 12 months has [employer], gas, oil, or water [employer] threatened to shut off services in your [...] week 10/28/2024 How often do you attend [facility] or temple services? Never 10/28/2024 Do you belong to any clubs o r organizations such as mormon groups, unions, fraternal or athletic groups, or [...] any time in the past 12 m [facility], were you homeless or living in a fci (including now)? No 10/28/2024 Personal Safety Answer [...] on file documented as of this encounter Last Filed Vital Signs Vital Sign Reading [...] Mass Index 45.17 10/25/2024 8:32 PM CDT documented in this encounter Discharge Summaries * John Frederick MD - 10/28/2024 3:29 PM CDT Inpatient Discharge Summary Admitting Provider: Jacobo Andre MD Discharge Provider: Jacobo Andre MD Admission Date: 10/25/2024 Discharge Date: 10/28/2024 Delivery Date/Time: 10/25/2024t 6:00 PM Delivery method: [351] Primary Discharge Diagnosis: Intrauterine at 30w5d, delivered Secondary Discharge Diagnosis: Medical Conditions Diagnosis AMA (advanced maternal age) multigravida 35+, third trimester Obesity complicating in third trimester Supervision of high-risk , third trimester Marginal placenta previa Pre-eclampsia affecting , antepartum Abdominal pain complicating Excessive growth affecting management of in third trimester Polyhydramnios in third trimester, not applicable or unspecified fetus Placental abruption in third trimester Encounter for routine follow-up Procedures Performed: Procedure(s): SECTION Other Treatments: Magnesium sulfate therapy: No Blood transfusion: No Hospital Course: Manan Jaramillo is a 43 y.o. female at 30w5d weeks gestation, dated by 2nd trimester Ultrasound with Estimated Date of Delivery: 12/29/[address] [facility] for heavy vaginal bleeding.Patient had already lost significant blood with ongoing bleeding (at least 600 bright red blood on stretcher). Decision was made to proceed with a Level 1 section. Her was complicated by PreE. She underwent a primary Low Transverse Section via [place]. for concern for abruption at 30w5d. She had an epidural placed for anesthesia. She delivered a viable female with apgars 1 and 5 at one and five minutes of life respectively. Delivery was complicated by PPH(QBL 1360. See operative report for full details. The patient was transferred to . Her course was complicated by the below. Prior to discharge, her pain was well controlled, she was voiding, passing gas, ambulating, and meeting all milestones. # Heme: Hgb 12.1> QBL 1360 mL. Hemodynamically stable. POD1 Hgb 10.8 # CV/Pulm: Pre-eclampsia without severe features. Currently on no meds. Asymptomatic. Enrolled in remote BP monitoring. Text received # GI/: Tolerating PO. Voiding spontaneously. Persistent RUQ pain which she had prior to delivery.RUQ ultrasound 09/09/2024. No cholelithiasis or acute cholecystitis. Mild hepatic steatosis. Patient was scheduled for an MRI outpatient on 10/29, but per the patient was discontinued. MRI ordered however unable to be completed inpatient. # Carpal tunnel: OT ordered for wrist splints. For additional supportive measures. #Mother/Baby: The patient has chosen to breastfeed her infant and has chosen partner vasectomy for contraception. #PreE: The patient was consented and registered for remote blood pressure monitoring. A blood pressure cuff has been given to the patient. She has confirmed receipt of test message. Her AVS was updated with discharge instructions on use of the remote blood pressure monitoring system. She will follow up with her primary OB team ([facility]). Symptoms of preeclampsia have been reviewed. Discharge Details Physical Exam at Discharge: Discharge Condition: Stable Pulse: 112 Resp: 18 BP: 137/84 Temp: 36.6 ??C (97.9 ??F) Weight: 255 lb (115.7 kg) See full physical exam from progress note on day of discharge. Lab Results Component Value Date HCT 29.9 (L) 10/26/2024 ABORH A Positive 10/25/2024 SCRRUBELIGG Immune 08/12/2024 [] Iron prescribed on discharge [] Post Rhogam given [] Post MMR given There is no immunization history for the selected administration types on file for this patient. Discharge Medications: Your medication list START taking these medications acetaminophen 500 mg capsule Take 2 capsules (1,000 mg total) by mouth every 6 (six) hours docusate sodium 100 mg capsule Take 1 capsule (100 mg total) by mouth 2 (two) times a day Commonly known as: COLACE ibuprofen 600 mg tablet Take 1 tablet (600 mg total) by mouth every 6 (six) hours Commonly known as: ADVIL,MOTRIN oxyCODONE 5 mg immediate release tablet Take 1 tablet (5 mg total) by mouth every 3 (three) hours as needed for pain Commonly known as: ROXICODONE polyethylene glycol 17 gram/dose bulk powder Take 17 g by mouth daily Commonly known as: MIRALAX senna 8.6 mg tablet Take 1 tablet by mouth 2 (two) times a day Commonly known as: SENOKOT CONTINUE taking these medications comb no.42-folic acid 1.4 mg tablet,chew,IR & DR,biphase Take by mouth daily STOP taking these medications aspirin 81 mg enteric coated tablet Future Appointments Date Time Provider Department Center 11/11/2024 11:00 AM [facility] OB Cosigned by Ruddy Vallejo MD at 10/28/2024 4:59 PM CDT documented in this encounter Discharge Instructions * Discharge Instructions* John Frederick MD - 10/26/2024 10:00 AM CDT Images from the original note were not included. Discharge Instructions - Vaginal Delivery COVID19 Precautions: * Wash your hands frequently * Do not touch your face * Avoid anyone with fevers or cough For questions and/or concerns please reach out the OB communication center at [phone]. A nursewill answer this line 24 hours a day. * If you have SEVERE illness including persistent shortness of breath, high fever not responsive totylenol, or nausea and vomiting preventing you from adequately orally hydrating, then call your doctor or go to the ER. Call Your Doctor If: * You have a fever of 100.4 degrees or higher. * You have vaginal bleeding more than your normal menstrual period. * You are passing large blood clots (larger than an egg). * You have a strong foul odor coming from your vagina. * You have burning, pain or difficulty urinating. * You have pain or swelling in your vagina or vulva that gets worse or does not get better. * You have nausea, vomiting or increased abdominal pain. * You have redness or pain in your calves, legs or inner thighs. * You have red, swollen painful breasts. * You have other questions or concerns * You have a headache, difficulty breathing, pain in your upper abdomen, or changes in your vision. * You have decreased urine output. * Your level of consciousness changes. * If you have a blood pressure cuff at home, check your blood pressure once a day and write it down. Call your doctor if your blood pressure is greater than 160 (top number) or 110 (bottom number). Diet: * Follow your regular diet. * Maintain liquid intake of 8 -10 glasses per day. * For constipation - drink prune juice or take stool softener medication ordered by your doctor. Eat foods with fiber (examples - raisins, prunes, washed raw vegetables, whole wheat bread, and bran). Activity: * Do not put anything in your vagina for 6 weeks. NO douching, tampons or sexual intercourse. * Weakness and fatigue are common. * Limit activities and visitors and increase as energy levels return. Rest as often as possible. * No driving while taking narcotics. * If you are not , milk will come in between the 3rd and 4th day . Wear tight support bra and use ice packs to relieve breast discomfort. Care Instructions: * You may shower and shampoo hair as desired. * You may take a tub bath 2 weeks after delivery. * For perineal discomfort sit in warm shallow water for 15-20 minutes. Do this 3-4 times a day. Anystitches you have will dissolve in about 2 weeks. Continue to use everardo bottle for the next 5-7 days. Contraception: Partner Vasectomy: A second method of control in needed until testing is done to confirm there is no sperm in the semen. This is usually done 3 months after the procedure. Feeding: : Follow unrestricted . Feed your baby based on baby's hunger cues (or atleast 8-12 feedings per 24 hours). Do NOT supplement unless instructed by Electronics Technician. Call your Electronics Technician if your baby has poor eating habits (examples: feedings decrease, no feedings in 6 hours, or infant spits up more than ?? of their feeding for 2 consecutive feedings). Once your baby is 5- 6 days old, you should expect at least 5 wet diapers and 3 soiled diapers per day. Formula Feeding: Feed your baby based on baby's hunger cues. Your baby will eat about every three to four hours during the day. Babies usually eat on demand (when they wake up at night). Your baby will take1-3 ounces at each feeding, and this will increase as the baby grows. Formula contains all the water and nutrition your baby needs. Do NOT supplement (water, juice, cereal) unless instructed byPediatrician. Call your Electronics Technician if your baby has poor eating habits (examples: feedings decrease, no feedings in 6 hours, or spits up more than ?? of their feeding for 2 consecutive feedings). Once your baby is 5-6 days old you should expect at least 5 wet diapers and 3 soiled diapers per day. [facility] - [facility] - [address] [place] [address] Call to schedule an appointment to be seen in 2 weeks. Blood Pressure Monitoring: If you are enrolled in home blood pressure monitoring please text your blood pressures when prompted upon hospital discharge.How to use a home blood pressure monitor: Be still. Don't smoke, drink caffeinated beverages or exercise within 30 minutes before measuring your blood pressure. Sit for at least 5 minutes before taking your blood pressure.Sit correctly. Sit with your back straight and supported (on a dining chair, rather than a sofa). Your feet should be flat onthe floor and your legs should not be crossed. Your arm should be supported on a flat surface (suchas a table) with the upper arm at heart level. Make sure the middle of the cuff is placed directly above the bend of the elbow. Check your monitor's instructions for an illustration or have your healthcare provider show you how. *If at ANY time you have symptoms of chest pain, shortness of breath, vision changes, numbness/weakness, difficulty speaking, headache, or if something just doesn't feel right, call our OB communication center at [phone]. High blood pressure problems during & after Preeclampsia or induced hypertension is a high blood pressure disease that can happen in and shortly after delivery (up to 6 weeks after having your baby). Most women will developblood pressure problems towards the end of their , but others will have it for the first time after their delivery. High blood pressure can be dangerous and needs to be monitored closely. Blood pressures can get so high that it can put you at risk for brain injury, stroke, and seizures. Preeclampsia can also hurt your kidneys and liver or cause buildup of fluid in your lungs. If it is very severe and not treatedpreeclampsia can cause . Preeclampsia affects 8-10 out of 100 women and although we don???t know exactly what causes it we do know that some women are at higher risk: - First - If you are under 18 years old or over 40 years old - If you have diabetes, kidney problems, or Lupus - If you are obese - If you have had preeclampsia before - If you had high blood pressure before - If you are with twins or triplets The best way to treat preeclampsia is to have the baby and most of the time your blood pressure will return to normal after delivery, but some people still have high blood pressure after the baby is born. Some people need medication when leaving the hospital to help keep you blood pressure in a normal range. You may only need to take medication for a short time after the baby is born others need it for longer periods of time. It is very important that you get this prescription filled and take the medicine as instructed in order to help control your blood pressure. If you have preeclampsia or another hypertensive disorder of after you go home from the hospital, you should call the doctor if you experience: intermediate risks of preeclampsia If you had preeclampsia or high blood pressure in you have a higher chance of having highblood pressure sometime later in life. It can also increase your chance of heart disease, heart attack, or stroke in future . May women who get preeclampsia will not have it again in the future but women with preeclampsia have a higher chance of getting it again compared to women who did not have it. If you had a baby before 34 weeks because of preeclampsia, you have the highest chance of getting it again. It is very important you see a primary care doctor for regular checkups to have your blood pressurechecked. Discharge Medications: Take the following medications. Your medication list START taking these medications acetaminophen 500 mg capsule Take 2 capsules (1,000 mg total) by mouth every 6 (six) hours docusate sodium 100 mg capsule Take 1 capsule (100 mg total) by mouth 2 (two) times a day Commonly known as: COLACE ibuprofen 600 mg tablet Take 1 tablet (600 mg total) by mouth every 6 (six) hours Commonly known as: ADVIL,MOTRIN oxyCODONE 5 mg immediate release tablet Take 1 tablet (5 mg total) by mouth every 3 (three) hours as needed for pain Commonly known as: ROXICODONE polyethylene glycol 17 gram/dose bulk powder Take 17 g by mouth daily Commonly known as: MIRALAX senna 8.6 mg tablet Take 1 tablet by mouth 2 (two) times a day Commonly known as: SENOKOT CONTINUE taking these medications comb no.42-folic acid 1.4 mg tablet,chew,IR & ,biphase Take by mouth daily STOP taking these medications aspirin 81 mg enteric coated tablet documented in this encounter Medications at Time of Discharge acetaminophen 500 mg capsuleIndicatio ns:Pain Take 2 capsules (1,000 mg total) by mouth every 6 (six) hours 60 tablet 10/28/2024 docusate sodium (COLACE) 100 mg capsuleIndicatio ns:constipation, Stool Softener Take 1 capsule (100 mg total) by mouth 2 (two) times a day 60 capsule 10/28/2024 ibuprofen (ADVIL,MOTRIN) 600 mg tabletIndication s:Cramps Take 1 tablet (600 mg total) by mouth every 6 (six) hours 60 tablet 10/28/2024 oxyCODONE (ROXICODONE) 5 mg immediate release tabletIndication s:Pain Take 1 tablet (5 mg total) by mouth every 3 (three) hours as needed for pain 12 tablet 10/28/2024 polyethylene glycol (MIRALAX) 17 gram/dose bulk powderIndication s:constipation Take 17 g by mouth daily 517 g 10/28/2024 comb no.42-folic acid 1.4 mg tablet,chew,IR & ,biphase Take by mouth daily senna (SENOKOT) 8.6 mg tabletIndication s:constipation Take 1 tablet by mouth 2 (two) times a day 60 tablet 10/28/2024 10/28/2025 documented as of this encounter Ordered Prescriptions Prescription Sig Dispense Quantity Refills Last Filled Start Date End Date oxyCODONE (ROXICODONE) 5 mg immediate release tabletIndications: Pain Take 1 tablet (5 mg total) by mouth every 3 (three) hours as needed for pain 12 tablet 10/28/2024 ibuprofen (ADVIL,MOTRIN) 600 mg tabletIndications: Cramps Take 1 tablet (600 mg total) by mouth every 6 (six) hours 60 tablet 10/28/2024 senna (SENOKOT) 8.6 mg tabletIndications: constipation Take 1 tablet by mouth 2 (two) times a day 60 tablet 10/28/2024 polyethylene glycol (MIRALAX) 17 gram/dose bulk powderIndications: constipation Take 17 g by mouth daily 517 g 10/28/2024 docusate sodium (COLACE) 100 mg capsuleIndications :constipation,Stoo l Softener Take 1 capsule (100 mg total) by mouth 2 (two) times a day 60 capsule 10/28/2024 acetaminophen 500 mg capsuleIndications :Pain Take 2 capsules (1,000 mg total) by mouth every 6 (six) hours 60 tablet 10/28/2024 documented in this encounter Discharge Disposition Disposition Code Departure Means Destination Discharge to home or self care documented in this encounter Progress Notes * Diana Walden OT - 10/28/2024 4:30 PM CDT Occupational Therapy Occupational Therapy Orthosis Evaluation Note NOTE: This is a summary note of the menjivar components of the orthosis evaluation session. For full details, review chart for all flowsheets documented on by this occupational therapist on this date. Care plan progress documented in Care Plan Activity. For questions, please review the treatment team and send a [employer] Readyt message or call the occupational therapist(s) currently assigned to this patient. If an occupational therapist is not assigned tothis patient, please call [phone]. Splint Type: bilateral prefabricated wrist cock up [...] up orthoses as needed during functional activity andrest for relief of symptoms. Pt to wear [...] Patient verbalized comfort with orthosis donned. Patient agreeableto wear schedule and precautions. Handouts left in room for wear schedule, cleaning instructions, skin precautions and contact information. Patient verbalizes understanding however would benefit fromreinforcement. 10/28/24 1630 General Chart Reviewed Yes Session [...] 1650 OT Time Calculation (min) 20 min * Diana Walden OT - 10/28/2024 2:01 PM CDT Occupational Therapy 10/28/24 1401 General OT Missed Visit Reason Unavailable (Patient not in room. OT reached out to the three nurses signed in to ask them to notify OT when ptreturns to room) * Zoraida Schwartz NP - 10/28/2024 9:31 AM CDT Post Progress Note Admission Date: 10/25/2024 GIA [...] picking up 120 lb wheels of cheese forwork and heard a pop with pain to follow. She then noticed bruising to the area that has since went away. Patient states this RUQ pain has been persistent since this incident in and has not improved at all since delivery. She also is requesting to have wrist splints for her carpal tunnel. Denies other concerns. OBJECTIVE Vitals: Temp Min: 36.3 ??C (97.3 ??F) Max: 36.7 ??C (98.1 ??F) Pulse Min: 95 Max: 113 BP Min: [...] 08/12/2024 IDCOOMB Negative 10/25/2024 SCRINDANTIGL negative 08/12/2024 [id number] Nonreactive 10/25/2024 [id number] Nonreactive 10/12/2024 LABRPR Nonreactive 10/25/2024 SCRRPR Non-Reactive [...] Q8H MECHELLE PRN Medications benzocaine-menthoL cyclobenzaprine hydrocortisone gmvjizl-tqfie-xeuopys naloxone ondansetron ODT OR ondansetron oxyCODONE phenoL simethicone sodium chloride 0.9% varicella zoster ASSESSMENT/PLAN aMnan Jaramilol is a 43 y.o. female postop day [...] RUQ pain which she had prior to delivery.RUQ ultrasound 09/09/2024. No cholelithiasis or acute cholecystitis. [...] records not available at admission. Patient states chasityhas had a vasectomy. # MOF: . Urine drug screen: Verbal Consent Obtained. # Post DVT prophylaxis: The patient has the following MAJOR risk factors BMI >/= 40 and the following MINOR risk factors delivery. enoxaparin 40 mg BID ordered for VTE prophylaxis. # Disposition: Follow up task sent to [facility] scheduling pool for appointments in 2 [...] I did not personally examine the patient. * Radha Hernández, PT - 10/27/2024 1:52 PM CDT Physical Therapy Evaluation Note NOTE: This is a summary note of the menjivar components of the evaluation session. For full details, review chart for all flowsheets documented on by this physical therapy clinician on this date. Vital signs are documented in the vital signs flowsheet. For questions, please review the treatment team and contact the PT or CLINICAL CARE LEADER currently assigned to this patient. If a physical therapy clinician is not assigned to this patient, please call [phone]. 10/27/24 7385 General Chart Reviewed Yes Session Type Evaluation [...] Equipment-Currently Using None Prior Function Level of [place] Independent functional transfers;Independent with ambulation Lives With Spouse Receives Help From Spouse/Significant other (bryologist assist available) Fall within the last 6 [...] chair. Reviewed logroll technique for bed mobility withpatient.) Transfers Transfer Yes Transfer 1 Transfer From [...] down and standing up from a chair witharms? 4 How much difficulty does the patient [...] Physical Therapy) Active Problems Not on file * Opal Reynoso CNM - 10/27/2024 11:54 AM CDT Post Progress Note Admission Date: 10/25/2024 GIA Duarte Edwin is a 43 y.o. postop day 2 [...] RUQ. States she has RUQ ultrasound at [facility] 09/2024 and follow up plan was to be MRI 10/29/2024. OBJECTIVE Vitals: Temp Min: 36.5 ??C (97.7 ??F) Max: 36.8 ??C (98.2 ??F) Pulse Min: 100 Max: 106 BP Min: 113/68 Max: 125/80 Resp Min: 18 Max: 20 SpO2 Min: 96 % Max: 99 % Physical Exam General: No acute distress. Neurologic: Alert and oriented Lungs: Non-labored. Abdomen: Soft, non distended, appropriately tender to palpation. Fundus firm below umbilicus. Incision: dressing removed, incision well approximated. steristrips saturated and loose. Replaced -incisional care and s/s infection reviewed with patient. Extremities: Warm and well-perfused. 2+ lower extremity edema or calf tenderness. Pelvic: Deferred. Lab Review: Lab Results Component Value Date WBC 22.23 (H) 10/26/2024 HGB 10.8 (L) 10/26/2024 HCT 29.9 (L) 10/26/2024 MCV 91.2 10/26/2024 LABPLAT 190 10/26/2024 Lab Results Component Value Date ABORH A Positive 10/25/2024 SCRIBEDABORH A+ 08/12/2024 IDCOOMB Negative 10/25/2024 SCRINDANTIGL negative 08/12/2024 [id number] Nonreactive 10/25/2024 [id number] Nonreactive 10/12/2024 LABRPR Nonreactive 10/25/2024 SCRRPR Non-Reactive [...] Q8H MECHELLE PRN Medications benzocaine-menthoL cyclobenzaprine hydrocortisone rmgboia-gbgtd-bczpzfu naloxone ondansetron ODT OR ondansetron oxyCODONE simethicone [...] RUQ pain which she had prior to delivery.RUQ ultrasound 09/09/2024. No cholelithiasis or acute cholecystitis. Mild hepatic steatosis. RUQ ultrasound ordered. # Pain: Not well controlled with above regimen. Roxicodone frequency increased to every 3 hours # MOC: Consents signed at OSH for tubal, records not available at admission. Patient states partnerhas vasectomy. # MOF: . Urine drug screen: Verbal Consent Obtained. # Post DVT prophylaxis: The patient has the following MAJOR risk factors BMI >/= 40 and the following MINOR risk factors delivery. enoxaparin 40 mg BID ordered for VTE prophylaxis. # Disposition: Follow up task sent to [facility] scheduling pool for appointments in 2 [...] and plan of care as documented in CNM note. Attempted to see patient multiple times [...] scheduled outpt MRI 10/29. Brianna Arvizu MD * Mita Ramos - 10/26/2024 11:05 AM CDT Physical Therapy Evaluation Note NOTE: This is a summary note of the menjivar components of the evaluation session. For full details, review chart for all flowsheets documented on by this physical therapy clinician on this date. Vital signs are documented in the vital signs flowsheet. For questions, please review the treatment team and contact the PT or CLINICAL CARE LEADER currently assigned to this patient. If a physical therapy clinician is not assigned to this patient, please call [phone]. 10/26/24 1105 General PT Missed Visit Reason Unavailable (Pt. was not in room, will attempt to see at later time) Cosigned by Beverly Bruno PT at 10/26/2024 1:06 PM CDT * John Frederick MD - 10/26/2024 7:11 AM CDT Post Progress Note Delivery Date/Time: 10/25/2024t 6:00 [...] MECHELLE PRN Medications benzocaine-menthoL cyclobenzaprine diphenhydrAMINE hydrocortisone oyjpkmg-huvdw-kzdnxvz naloxone naloxone ondansetron ODT OR ondansetron ondansetron ODT OR ondansetron oxyCODONE polyethylene glycol prochlorperazine simethicone sodium chloride 0.9% varicella zoster Vitals: Temp: [36.3 ??C (97.3 ??F)-36.7 ??C (98.1 ??F)] 36.5 ??C (97.7 ??F) Pulse: [90-102] 96 BP: (114-164)/(63-102) 114/75 Resp: [...] records not available at admission. Patient states partnerhas vasectomy. # MOF: . Urine drug screen: [...] in the resident's/fellow's note. Heather Russo MD * Eufemia Dean MD - 10/25/2024 11:27 PM CDT M Update - delayed entry due to patient [...] bedside BP 133/90 Pulse 96 Temp 36.3 ??C (97.3 ??F) Resp 16 Ht 160 cm (5' 3 ) Wt 255 lb (115.7 kg) LMP 02/20/2024 SpO2 97% Yes BMI 45.17 kg/m?? Reassuring exam. Plan to give rectal miso and continue to monitor bleeding. Continuing to manage pain. For CBC in AM. Eufemia Dean MD documented in this encounter H&P Notes * Eufemia Dean MD - 10/25/2024 6:00 PM CDT Obstetrics H&P Chief Complaint: vaginal bleeding Estimated Date of Delivery: 12/29/24 Provider: OSH Provider HPI: Manan Jaramillo is a 43 y.o. female at 30w5d gestation, dated by 2nd trimester ultrasound Her is complicated by anterior placenta previa, AMA, pre-eclampsia without severe features, chronic abdominal pain, mild polyhydramnios, LGA fetus, obesity. Patient reported ctx starting yesterday. She had an US at [facility] early today. Since finishing the US,she began having heavy vaginal bleeding. On arrival to [facility], she was noted to have significant bleeding with passage of clots. Decision was made to proceed to OR for Level 1 CS. Patient Denies: [] Contractions [x] Shortness of Breath [] Nausea/Vomitting [] Vaginal Bleeding [x] Headache [] Abdominal Pain [] Leaking of Fluid [x] Visual changes [x] Decreased Movement OB History Para Term AB Living 3 2 0 2 1 2 SAB IAB Ectopic Multiple Live Births 1 0 0 0 2 # Outcome Date GA Lbr Derrick/2nd Weight Sex Type Anes PTL Lv 3 10/25/24 30w5d 1.986 kg (4 lb 6.1 oz) F Gen Y [place] Complications: Abruptio Placenta Name: Preet Jaramillo Apgar1: 1 Apgar5: 5 2 09/09/99 35w0d 3.317 kg (7 lb 5 oz) M Vaginal [place] 1 SAB Past Surgical History: Procedure Laterality Date EYE SURGERY TONSILLECTOMY Social History Tobacco Use Smoking status: Not on file Smokeless tobacco: Not on file Substance and Sexual Activity Drug use: Not on file Sexual activity: Not on file Alcohol Use: Not on file Allergies Allergen Reactions Codeine Anaphylaxis Mushroom Anaphylaxis HOME MEDICATIONS : aspirin 81 mg enteric coated tablet comb no.42-folic acid 1.4 mg tablet,chew,IR & DR,biphase Vitals: Temp: [36.7 ??C (98.1 ??F)] 36.7 ??C (98.1 ??F) Pulse: [98-102] 100 Resp: [16-19] 16 BP: (128-155)/(63-85) 128/63 Physical Exam: General: Acute distress CV/Pulm: Tachypnea : External vaginal exam notable for significant vaginal bleeding, clots and blood on chux Neuro: AOx4 Exam limited due to urgency. Labs: Lab Results Component Value Date ABORH A Positive 10/25/2024 SCRIBEDABORH A+ 08/12/2024 IDCOOMB Negative 10/25/2024 SCRINDANTIGL negative 08/12/2024 [id number] Nonreactive 10/25/2024 [id number] Nonreactive 10/12/2024 SCRRPR Non-Reactive 10/12/2024 SCRRUBELIGG Immune 08/12/2024 GC negative 08/12/2024 Rh [A+], Ab [negative], Rubella [immune], HIV [non-reactive], HepBSAg [non- reactive], HepBSAb [not done], HepBCAb [not done], RPR [non-reactive], Hep C [non-reactive], Varicella [positive], GC/CT [negative/negative] Assessment and Plan # ID: Afebrile. No signs/symptoms of infection. # Heme: # Placenta Previa: Heavy vaginal bleeding on arrival likely 2/2 abruption vs. bleeding placenta previa. S/p emergency CS. Total EBL 1400mL. CTM CBC and VS closely. # CV/Pulm: Pre-eclampsia without severe features. Currently on no meds. CBC/CMP pending. UPC 0.6. To be enrolled in remote BP monitoring. # GI/: Tolerating PO. Acosta in place. # Pain: Plan for dPCA post-operatively. # AMA: Declined genetic testing. # Mild polyhydramnios: MATEO 25. # LGA fetus: EFW 97%ile, AC > 99% # MOC: Needs to be addressed. # MOF: unk. Urine drug screen consent to be obtained, indicated for placental abruption Patient informed of results: pending. # Post DVT prophylaxis: The patient has the following MAJOR risk factors BMI >/= 40 and the following MINOR risk factors delivery. enoxaparin 40 mg BID ordered for VTE prophylaxis. Plan discussed with Dr. Dean. Massiel Mg MD 10/25/24 [facility] Fellow Attestation I have seen and discussed Manan Jaramillo with the resident, Dr. Mg on 10/25/2024. I have evaluated the patient and reviewed the treatment plan and recommendations. I agree with the findings and the plan of care as documented in the resident???s note with the following addendum: Emergent CS called due to heavy persistent vaginal bleeding, abdominal pain and concern for abruption vs. bleeding previa. Patient was verbally consented for surgery and history reviewed in the OR. Peds aware and present for delivery. Eufemia Dean MD, MPH Maternal- Medicine Fellow Cosigned by Radha Still MD at 10/26/2024 9:59 PM CDT Associated attestation - Radha Still MD - 10/26/2024 9:59 PM CDT I have reviewed the above note for Manan Jaramillo, and I agree with the documented plan by the resident/fellow. Radha Still MD 10/26/2024 documented in this encounter Nursing Notes * Carmelina Wells RN - 10/27/2024 5:33 PM CDT Patient was provided with blood pressure cuff and batteries prior to discharge. Patient was instructed and educated on how to use and position blood pressure cuff properly. This RN completed discharge education and signs and symptoms to report to the MD at this time. This RN confirmed that the patient received Remote Blood Pressure Monitoring Welcome Text and replied YES . Consents were obtainedand located in the patient's chart. Hospital Monitor: 129/80 Home Monitor: 126/82 * Alesha Dsouza RN - 10/25/2024 9:06 PM CDT Pt refusing fundal checks d/t pain. Pt educated on why fundal checks are essential to monitor for bleeding and fundal tone. Anesthesia contacted about pain control and unable to administerany additional medication. Pt has REFINING ENGINEER and educated on using REFINING ENGINEER. MD Flores aware. * Alesha Dsouza RN - 10/25/2024 9:06 PM CDT Upon admission to L&D, mother reported plan to breast feed infant. Educated on early feeding cues and offered support and assistance with first feeding. Encouraged mother to call nursing staff for assistance with latching infant prn. Mother reports understanding of all education provided. Encouragement and support provided. 10/25/2024 9:06 PM Alesha Dsouza RN documented in this encounter Miscellaneous Notes * Teleconsult - Zoraida Schwartz NP - 10/28/2024 5:00 PM CDT Patient called the hospital in regards to an MRI being scheduled outpatient. Per Dr. Neff, patient to follow up with an MRI through her primary doctor or the crowd controller that ordered it at [facility]. Notified patient of this and she reports she is continuing to have RUQ pain with increased lower extremity swelling and the shakes . Patient reports she is going to be seen in the ER. Zoraida Schwartz NP * Note - Megan Salazar RN - 10/28/2024 3:00 PM CDT This note was copied from a baby's chart. Visited mother as she pumps at bedside. Mother denies pain pumping with a 19 mm insert. Reports there was one day she didn't pump, then she pumped 8-9 times the next day. She shared that her pump sessions include one breast at a time and at times she pumps each breast for 45 min at a time. Reviewedfrequent pumping every 2-3 hours for 15-20 min and redirected mother to pump with the 22.5 mm flanges. Mom has loaner pump #7. Please ensure it is returned prior to infant's discharge. Mother has no other questions or concerns. Encouragement and support given. * Plan of Care - Keeley Pena RN - 10/28/2024 12:16 PM CDT Problem: Care Goal: Risk for complications during the period will decrease Outcome: Progressing Goal: Ability to identify and utilize resources during the phase will improve Outcome: Progressing Goal: Ability to demonstrate positive interaction with the child will improve Outcome: Progressing Goal: Ability to participate in self care as condition permits will improve Outcome: Progressing Problem: Coping Goal: Ability to verbalize feelings will improve Outcome: Progressing Goal: Level of anxiety will decrease Outcome: Progressing Problem: Discharge Planning Goal: Understanding discharge needs will improve Outcome: Progressing Problem: Skin Integrity Impairment Risk Goal: Mobility will improve Outcome: Progressing Goal: Understanding of ways to prevent future skin breakdown will improve Outcome: Progressing Goal: Nutritional status will improve Outcome: Progressing Goal: Risk for impaired skin integrity will decrease Outcome: Progressing Goals: Clinical Goals for the Shift: Nasal swab, MRI, wrist splints, pain control University Teacher Patient Centered Goal for Treatment: safe discharge home Summary: patient progressing towards care plan goals. * Initial Assessments - Latoya Dong LCSW - 10/28/2024 11:46 AM CDT Reason for Admission MOB Ernst Jaramillo 1980) was admitted on 10/25/2024 for Placental abruption in third trimester [O45.93]. Social Work referral for SDOH check in. Medical History OB-GAS PUMPING STATION OPERATOR care has been established with [facility]. Pediatric follow-up to be scheduled upon 's discharge from [facility] NICU. Medical insurance coverage is through [facility] [employer]. Information Baby girl was born on 10/25/2024 at EGA 30.5 weeks and has been named Cesilia Merrill. Delivery was . [place] weighed 4lb 6.1oz at delivery. [place] will be combination breast and formula fed. This is mother's 2nd child. [place] admitted to [facility] NICU re: prematurity. Social History Current address is [address] [place] [id number], where she lives with her . Currently [phone] (home) is the best phone number for future contact. Mother noted to have 1 other child(noemi): 25yo son, 09/09/99 MOB reports that her and family are a positive support for her and her child. Father of the baby/, Minor Jaramillo, can be reached at [phone]. FOB has been present and supportive at the hospital. FOB attentive and engaged in SW discussion. Of note, maternal chart review indicates UDS for Methamphetamine during - per [facility] notes. No lab results indicating result of screen. No further indication of concern noted throughout remainder of . No further UDS's indicated. Notes indicate maternal use of Sudafed at that time. SW reviewed concerns with OB MD team, urging MD review with [facility]. MD team received no further information. SW attempts to contact [facility] for further lab results and review- no further information provided by [facility]. SW reviews this concern with MOB- Pt acknowledges discrepancy and speaks to significant unhappiness, disorganization and inconsistencies at [facility]. Pt states that she continued to request UDS collections, yet nothing was every provided. Pt denies Methamphetamine use. Maternal UDS collected upon current admission +Hydromorphone only (provided by medical team upon delivery). [place] has -UDS upon delivery. MDS results still pending. Due to limited information and lack of confirmation details, no indication for [place] DFS hotline at this time. SW reviews with [facility] NICU SW who will continue to follow family throughout 's ongoing admission. Mood and Anxiety No maternal hx of MH dx noted in chart. Manan Jaramillo denies having any concerns for mood instability throughout , but speaks about situational stressors. SW provides listening and support. SW and MOB discussed the signs and symptoms of Mood and Anxiety Disorder and reviewed thedifferences between PMAD and Baby Blues. SW discussed and normalized increase in emotions and the importance of self-care. MOB engaged in conversation and demonstrates knowledge. MOB encouraged to seek medical and mental health treatment if PMAD symptoms arise. MOB confirms that she feels supportedby: her partner and can reach out to her OBGYN for follow up support, if symptoms arise. SW informed MOB that PMAD/Baby Blues information and supportive phone numbers are provided in Welcome Folder. SW reviews [facility] SW and [facility] support services available throughout 's ongoing admission. MOB engaged in conversation and demonstrates knowledge. Resources Provided and Goals Addressed Social Determinants of Health: Family denies having any concerns with access to food, transportation, or housing. MOB confirms having all needed baby items prepared for , including car seat, clothing, crib/bassinet, bottles, etc. No lodging concerns noted, as MOB lives local in [place], [place]. [facility] SW provides support and encouragement. Family denies having any questions or concerns for this clinician. Strengths MOB is open and receptive to Social Work intervention, education, and resources. Safe Discharge Plan [facility] SW to collaborate with [facility] SW for family care handoff, as needed. [facility] SW will follow up with family throughout remainder of infant's admission to [facility]. No further [facility] SW needs indicated at this time. Latoya VALDES LCSW [facility] Clinical [facility] * Plan of Care - Kalee Gómez RN - 10/28/2024 5:59 AM CDT Problem: Care Goal: Risk for complications during the period will decrease Outcome: Progressing Flowsheets (Taken 10/28/2024 0559) Risk for complications during the period will decrease: Monitor fundal height and consistency Monitor lochia amount and color Monitor blood products Report signs and symptoms of excessive bleeding Problem: Skin Integrity Impairment Risk Goal: Mobility will improve Outcome: Progressing Flowsheets (Taken 10/28/2024 0559) Mobility will improve: Assess circulation, sensation and/or motion of extremity Goals: Clinical Goals for the Shift: vss, pain control, rest University Teacher Patient Centered Goal for Treatment: safe discharge home Summary: Tachycardia, all other VSS. MD notified of elevated heart rate and lower extremity edema, EKG done. No other orders or concerns at this time. Bleeding scant, fundus is firm. Incision edges approx, interdry clean and dry. Visiting baby in NICU. Tolerating ambulation and passing gas. Will continue to monitor. * Significant Event - Dominic Cano MD - 10/27/2024 11:04 PM CDT MD notified by RN regarding pt's complaint of hearing loss s/p CS 2 days ago, tachycardia w/ HR of 110s and bilateral LE swelling. Pt assessed and evaluated. Reported bilaterally hearing loss but hearing grossly intact; was able to converse with myself and RN at bedside without issues. Answered questions and followed commands appropriately. Also endorsed worsening BLE swelling, but as per pt and RN, had been quite mobile and denied leg pain, sob, or palpitations. Also denied fever/chills, palpitations, chest pain, headache, dizziness, lightheadedness, or nausea. Physical exam with BLE edema without tenderness. LCTABL, NSR, palpable pulses bilaterally. But otherwise, unremarkable. BP and temp wnl. Will obtain EKG.The aforementioned was discussed with Dr. Davis, who was agreeable. No indications for further interventions at this time. * Note - Logan Gordillo RN - 10/27/2024 10:45 AM CDT This note was copied from a baby's chart. Consult Note Patient name: Cesilia Jaramillo Mother's Name: Manan Jaramillo Mother's Age: 41 y.o. /Para/: Father's Name: Date of : 10/25/2024 Time of : 6:00 PM Delivery Type: Today's Date: 10/27/2024 Admission Date: 10/25/2024 6:23 PM Weight: 1986 g (4 lb 6.1 oz) Length: 16.654 Current Gestational Age: 31w 0d Patient Active Problem List Diagnosis of 30 completed weeks of gestation RDS (respiratory distress syndrome in the ) (HCC) [place] affected by maternal pre-eclampsia LGA (large for gestational age) [place] affected by maternal polyhydramnios hypoglycemia Immature thermoregulation [place] affected by placental abruption Respiratory failure in (HCC) Other feeding problems of Central apnea in Note: Met with mother bedside to answer questions regarding hospital Ameda Tazlina breast pump. Mother currently using size 21 flanges, reports pain with pumping. Attempted use with lanolin during pumping with no change. Provided size 22.5 flanges, appear appropriate fit & increased comfort per mother. Mother continues to produce drops when pumping, normalized this output at this stage. Denies further related questions or concerns at this time. * Plan of Care - Carmelina Wells RN - 10/27/2024 10:20 AM CDT Problem: Care Goal: Risk for complications during the period will decrease Outcome: Progressing Goal: Ability to identify and utilize resources during the phase will improve Outcome: Progressing Goal: Ability to demonstrate positive interaction with the child will improve Outcome: Progressing Goal: Ability to participate in self care as condition permits will improve Outcome: Progressing Problem: Coping Goal: Ability to verbalize feelings will improve Outcome: Progressing Goal: Level of anxiety will decrease Outcome: Progressing Problem: Discharge Planning Goal: Understanding discharge needs will improve Outcome: Progressing Problem: Skin Integrity Impairment Risk Goal: Mobility will improve Outcome: Progressing Goal: Understanding of ways to prevent future skin breakdown will improve Outcome: Progressing Goal: Nutritional status will improve Outcome: Progressing Goal: Risk for impaired skin integrity will decrease Outcome: Progressing Goals: Clinical Goals for the Shift: VSS, pain management, alternate rest and ambulation Senior Living Patient Centered Goal for Treatment: discharge home Summary: Patient is progressing towards care goals. * Plan of Care - Christine Arevalo RN - 10/26/2024 10:42 PM CDT Problem: Care Goal: Risk for complications during the period will decrease Outcome: Progressing Goal: Ability to identify and utilize resources during the phase will improve Outcome: Progressing Goal: Ability to demonstrate positive interaction with the child will improve Outcome: Progressing Goal: Ability to participate in self care as condition permits will improve Outcome: Progressing Problem: Coping Goal: Ability to verbalize feelings will improve Outcome: Progressing Goal: Level of anxiety will decrease Outcome: Progressing Problem: Discharge Planning Goal: Understanding discharge needs will improve Outcome: Progressing Problem: Skin Integrity Impairment Risk Goal: Mobility will improve Outcome: Progressing Goal: Understanding of ways to prevent future skin breakdown will improve Outcome: Progressing Goal: Nutritional status will improve Outcome: Progressing Goal: Risk for impaired skin integrity will decrease Outcome: Progressing Goals: Clinical Goals for the Shift: pain management University Teacher Patient Centered Goal for Treatment: discharge home Summary: Resting in bed. Pain levels remain high. * Note - Stephanie Westbrook RN - 10/26/2024 1:33 PM CDT Consult Note Patient name: Manan Jaramillo Baby Name: Cesilia Date of : 1980 Today's Date: 10/26/2024 Information for the patient's : Preet Jaramillo [[id number]] Gestational Age: 30w5d Reason for Consult: Initial assessment, NICU baby Nutritional Plans Feeding Plan: Human Milk Contraindications to : 72 hour human milk education & home breast pump assessment completed: Assessment Has mother provided human milk before? Yes Previous challenges: None class attended? No Exclusive pump and bottle feed? Using WIC program? Infant to breast within the 1st hour of ? No delayed due to Infant status Mother able to pump within 3 hours of ? Breast/Nipple Assessment Assessment: Within Defined Limits Feeding Information Position: Suck/Swallow: Right Breast (Minutes): Left Breast (Minutes): Interventions: Feeding Tolerance: Quality of breast feed: No breastfeed Weight Prior to Feeding: Weight After Feeding: Weight Difference: Feeding Plan: Tools: Pump, Flanges (19 mm) Breast Pump: Pump: 2 Type of Pump: Ameda Tazlina Pump Review/Education: Setup, frequency, and cleaning, Milk storage Initiated by: YOVANI on 10/25/24 Current Flange Size: 19 Number of Pumping Sessions per Day: Encouraged 8-12 Follow Up: Consult Status: Complete; Follow-up information provided: Engorgement/clogged ducts/mastitis, Importance of adequate stimulation for optimal supply, Ways to get continued assistance with services, Available support groups, in person and virtual, and encouraged attendance, General information and answered questions, Has written information on services, Mother deniesfurther questions or needs at this time Current Challenges: Infant separation Comments: Manan Jaramillo is a 43 y.o. day 1 s/p of a 30w5d female infant. Parent seen for consult. Baby Cesilia is in NICU for prematurity. Discussed pumping for in NICU. Discussed benefits of breastmilk for her and benefits of early pumping on her milk supply. Discussed frequency of pumping and hand expression for adequate stimulation. Discussed importance of frequent breast stimulation for milk supply. Discussed milk storage and amount expectations over the next few days. Mother is using appropriate flange size. Discussed obtaining loaner pump through NICU as well as pump for home use after infant is discharged. Support and encouragement provided. Instructed to reach out with additional questions or concerns. Plan: Mother will pump 8 times per day, bring expressed colostrum to NICU when visiting. Mother to ask for infant to be placed skin to skin as often as mother is able once infant is stable to do so. Stephanie Westbrook RN 10/26/2024 1:33 PM * Plan of Care - Elly Adams RN - 10/26/2024 12:49 PM CDT Problem: Care Goal: Risk for complications during the period will decrease Outcome: Progressing Flowsheets (Taken 10/26/2024 1248) Risk for complications during the period will decrease: Monitor fundal height and consistency Monitor lochia amount and color Report signs and symptoms of excessive bleeding Goal: Ability to identify and utilize resources during the phase will improve Outcome: Progressing Goal: Ability to demonstrate positive interaction with the child will improve Outcome: Progressing Goal: Ability to participate in self care as condition permits will improve Outcome: Progressing Problem: Coping Goal: Ability to verbalize feelings will improve Outcome: Progressing Goal: Level of anxiety will decrease Outcome: Progressing Problem: Discharge Planning Goal: Understanding discharge needs will improve Outcome: Progressing Problem: Skin Integrity Impairment Risk Goal: Mobility will improve Outcome: Progressing Goal: Understanding of ways to prevent future skin breakdown will improve Outcome: Progressing Goal: Nutritional status will improve Outcome: Progressing Goal: Risk for impaired skin integrity will decrease Outcome: Progressing Goals: Clinical Goals for the Shift: pain control, vs wnl, monitor bleeding, rest Senior Living Patient Centered Goal for Treatment: discharge home Summary: Mom is receiving adequate pain control with prn/scheduled pain meds. Patient states pain goal and understands pain medication schedule. * Note - Sarah Bettencourt RN - 10/26/2024 12:36 PM CDT This note was copied from a baby's chart. Consult Note Patient name: Preet Jaramillo Mother's Name: Manan Jaramillo Mother's Age: 41 y.o. /Para/: Father's Name: Date of : 10/25/2024 Time of : 6:00 PM Delivery Type: Today's Date: 10/26/2024 Admission Date: 10/25/2024 6:23 PM Weight: 1986 g (4 lb 6.1 oz) Length: 16.654 Current Gestational Age: 30w 6d Patient Active Problem List Diagnosis of 30 completed weeks of gestation RDS (respiratory distress syndrome in the ) ([facility]) [place] affected by maternal pre-eclampsia LGA (large for gestational age) affected by maternal polyhydramnios hypoglycemia Immature thermoregulation affected by placental abruption Respiratory failure in ([facility]) Other feeding problems of Central apnea in Infant Feeding Plan: Breast Mother of patient plans to pump breast milk for her baby. I have discussed the importance of providing the expressed breast milk. She has expressed appropriate concerns, asked pertinent questions, and has understood the discussion well. Assessment: Reason for Consult: Initial assessment, Initial consult, NICU baby Nutrition Plans: Human Milk Contraindications: No MATERNAL INFORMATION Has mother provided human milk before?: No class: No Infant to breast within first hour of ?: No Delayed Due to: Infant status Exclusive Pump and Bottle Feed: No WIC Program: (looking to signup) Tools: Supportive bra, Lanolin, Pump, Flanges BREAST PUMP Pump: 1, 2, 3 Pump Review/Education: Setup, frequency, and cleaning, Milk storage Initiated by: WILLIAN Mcmahon Date Initiated: 10/26/24 PATIENT FOLLOW-UP Consult Status: Follow-up Follow-Up Type: Inpatient Infant separation Risk Factors for Milk Expression: Little or no breast changes during , Wide spaced breasts / Elongated tubular breasts, Delay in initiation greater than 6 hours (First Pump:10 hours), and Increase BMI Breast Pumping Instructions: [] Guide Reviewed Discussed with mother initiating and maintaining milk supply when baby is unable to nurse, Mother instructed how to hand express breast milk and importance of adding this method to electric pumping until her milk comes in, Encouraged mother to views Hand Expression Video, Guide reviewed, Mother instructed to pump every 2 to 3 hours for 20 minutes both breasts at the same time using an electric pump, Demonstrated how to use dry creek breast pump when collecting colostrum, Mother instructed on pumping schedule, use of pump, storage and transport of breast milk, and cleaning of pump, Demonstrate how to keep track of pumping on a pumping log or surendra, Parents informed of meal vouchers available for NICU mothers providing breast milk, Mother is aware to have paged for concernswhen here visiting the Baby, and Unit Pump Room orientation [facility] Location: looking to sign uo Insurance Provider: MICHAEL Loaner Pump Number: aware Personal Pump: wearable Comments: Discussed breast engorgement prevention and management. Discussed plugged ducts, signs and symptoms. Reviewed when to expect mother's full milk supply, and regulation of supply. [employer] surendra, as well as meal program reviewed. Mother has wearable pump. Discussed benefits of using a plug in pump while milk is coming in. Mother aware loaner pump available until her pump arrives. Support and encouragement offered. Sarah Bettencourt RN, IBCLC 10/26/2024 12:36 PM * [facility], John Conway MD - 10/26/2024 10:18 AM CDT Manan Jaramillo is a 43 y.o. female at 30w5d weeks gestation, dated by 2nd trimester Ultrasound with Estimated Date of Delivery: 12/29/[address] [facility] for heavy vaginal bleeding.Patient had already lost significant blood with ongoing bleeding (at least 600 bright red blood on stretcher). Decision was made to proceed with a Level 1 section. Her was complicated by PreE. She underwent a primary Low Transverse Section via Pfannensteil. for concern for abruption at 30w5d. She had an epidural placed for anesthesia. She delivered a viable female with apgars 1 and 5 at one and five minutes of life respectively. Delivery was complicated by PPH(QBL 1360. See operative report for full details. The patient was transferred to . Her course was complicated by the below. Prior to discharge, her pain was well controlled, she was voiding, passing gas, ambulating, and meeting all milestones. # Heme: Hgb 12.1> QBL 1360 mL. Hemodynamically stable. POD1 Hgb 10.8 # CV/Pulm: Pre-eclampsia without severe features. Currently on no meds. Asymptomatic. Enrolled in remote BP monitoring. Text received # GI/: Tolerating PO. Voiding spontaneously. Persistent RUQ pain which she had prior to delivery.RUQ ultrasound 09/09/2024. No cholelithiasis or acute cholecystitis. Mild hepatic steatosis. Patient was scheduled for an MRI outpatient on 10/29, but per the patient was discontinued. MRI ordered however unable to be completed inpatient. # Carpal tunnel: OT ordered for wrist splints. For additional supportive measures. #Mother/Baby: The patient has chosen to breastfeed her and has chosen partner vasectomy for contraception. #PreE: The patient was consented and registered for remote blood pressure monitoring. A blood pressure cuff has been given to the patient. She has confirmed receipt of test message. Her AVS was updated with discharge instructions on use of the remote blood pressure monitoring system. She will follow up with her primary OB team ([facility]). Symptoms of preeclampsia have been reviewed. * Plan of Care - Annalisa Herring RN - 10/26/2024 12:41 AM CDT Problem: Care Goal: Risk for complications during the period will decrease Outcome: Progressing Goal: Ability to identify and utilize resources during the phase will improve Outcome: Progressing Goal: Ability to demonstrate positive interaction with the child will improve Outcome: Progressing Goal: Ability to participate in self care as condition permits will improve Outcome: Progressing Problem: Coping Goal: Ability to verbalize feelings will improve Outcome: Progressing Goal: Level of anxiety will decrease Outcome: Progressing Problem: Discharge Planning Goal: Understanding discharge needs will improve Outcome: Progressing Problem: Skin Integrity Impairment Risk Goal: Mobility will improve Outcome: Progressing Goal: Understanding of ways to prevent future skin breakdown will improve Outcome: Progressing Goal: Nutritional status will improve Outcome: Progressing Goal: Risk for impaired skin integrity will decrease Outcome: Progressing Goals: Clinical Goals for the Shift: pain control, vs wnl, monitor bleeding, rest [facility] Patient Cent[facility] Goal for Treatment: discharge home Summary: Annalisa Herring RN * Plan of Care - Alesha Dsouza RN - 10/25/2024 10:14 PM CDT Goals: Clinical Goals for the Shift: pain control, safe recovery and transfer to postpardum, vss Senior [facility] Patient Cent[facility] Goal for Treatment: discharge home Problem: Care Goal: Risk for complications during the period will decrease 10/25/2024 2213 by Alesha Dsouza, YOVANI Outcome: Progressing 10/25/20241909 by Alesha Dsouza RN Outcome: Progressing Goal: Ability to identify and utilize resources during the phase will improve 10/25/20242212 by Alesha Dsouza RN Outcome: Progressing 10/25/20241909 by Alesha Dsouza RN Outcome: Progressing Goal: Ability to demonstrate positive interaction with the child will improve 10/25/20242212 by Alesha Dsouza RN Outcome: Progressing 10/25/20241909 by Alesha Dsouza RN Outcome: Progressing Goal: Ability to participate in self care as condition permits will improve 10/25/20242212 by Alesha Dsouza RN Outcome: Progressing 10/25/20241909 by Alesha Dsouza RN Outcome: Progressing Problem: Coping Goal: Ability to verbalize feelings will improve 10/25/20242212 by Alesha Dsouza RN Outcome: Progressing 10/25/20241909 by Alesha Dsouza RN Outcome: Progressing Goal: Level of anxiety will decrease 10/25/20242212 by Alesha Dsouza RN Outcome: Progressing 10/25/20241909 by Alesha Dsouza RN Outcome: Progressing Problem: Discharge Planning Goal: Understanding discharge needs will improve 10/25/20242212 by Alesha Dsouza RN Outcome: Progressing 10/25/20241909 by Alesha Dsouza RN Outcome: Progressing Problem: Skin Integrity Impairment Risk Goal: Mobility will improve Outcome: Progressing Goal: Understanding of ways to prevent future skin breakdown will improve Outcome: Progressing Goal: Nutritional status will improve Outcome: Progressing Goal: Risk for impaired skin integrity will decrease Outcome: Progressing Summary: Pt progressing towards all goals. Pt transferred to 6817. * Op Note - Eufemia Dean MD - 10/25/2024 6:00 PM CDT [facility] Section Delivery Note Patient's Name: Manan Jaramillo : 1980 Attending Physician: Eufemia Dean MD Clinic: OSH Provider Primary Diagnosis: Intrauterine at 30w5d, delivered Placenta previa Preeclampsia without severe features AMA Obesity Mild polyhydramnios LGA fetus Obstetrical Medical Risk Factors: Medical Conditions Diagnosis ??? AMA (advanced maternal age) multigravida 35+, third trimester ??? Obesity complicating in third trimester ??? Supervision of high-risk , third trimester ??? Marginal placenta previa ??? Pre-eclampsia affecting , antepartum ??? Abdominal pain complicating ??? Excessive growth affecting management of in third trimester ??? Polyhydramnios in third trimester, not applicable or unspecified fetus ??? Placental abruption in third trimester ??? Encounter for routine follow-up Delivery method: [351] Anesthesia: General [253] Membranes: Artificial rupture, bloody. Time ruptured prior to delivery: 0h 00m Antibiotics: Ancef and Azithromycin Delivery Date/Time: 10/25/2024 at 6:00 PM Placenta Delivery Date & Time: 10/25/2024 6:01 PM Cord: 3 vessels [3] Delayed cord clamping: No, per pediatrics and given concern for abruption : living4 lb 6.1 oz (1.986 kg)female APGARs: 1 / 5 Disposition: NICU Operative Note Surgical Team: Surgeons and Role: * Eufemia Dean MD - Primary * Massiel Mg MD - Resident - Assisting * Judy Neff MD - Resident - Assisting Preoperative Diagnosis: Intrauterine at 30w5d Vaginal bleeding Postoperative Diagnosis: Same Concern for abruption Anesthesia: General Name of Operation: Primary Low Transverse Section via Pfannensteil Indication for Procedure: Manan Jaramillo is a 43 y.o. female at 30w5d weeks gestation, dated by 2nd trimester Ultrasound with Estimated Date of Delivery: 12/29/[address] [facility] for heavy vaginal bleeding.Patient had already lost significant blood with ongoing bleeding (at least 600 bright red blood on stretcher). Decision was made to proceed with a Level 1 section for concern for placental abruption vs. bleeding placenta previa. Operative Findings: Viable female infant, in Vertex presentation APGARS were 1 / 5 at 1 and 5 minutes respectively. Pediatrics was present at delivery. Placenta with central 3 vessel cord, which detached easily and appeared at least partially abrupted. Bloody fluid upon entry into the uterus. Normal uterus, bilateral tubes and ovaries. Small fundal fibroid noted. Description of Procedure: After obtaining the appropriate operative consents, the patient was takento the operating room, where general anesthesia was obtained. She was given 2 grams of Ancef/500mg Azithromycin. She was then prepared and draped in the normal sterile fashion in the supine position with a leftward tilt. A Pfannenstiel skin incision was then made with the scalpel and carried through to the underlying layer of fascia. The fascia was incised in the midline and the incision extendedlaterally bluntly. The rectus muscles were then in the midline, and the peritoneum was identified and entered bluntly. The peritoneal incision was then extended superiorly and inferiorly wit h good visualization of the bladder. The bladder blade was then inserted and the vesicouterine peritoneum identified. A low transverse hysterotomy was made with the scalpel. The uterine incision was then extended bluntly. The bladder blade was removed and the 's head was brought to the level of the hysterotomythen delivered atraumatically. The cord was clamped and cut and the was handed off to the waiting pediatricians. Cord gases were sent. The placenta was then delivered using external massage. The uterus was exteriorized and cleared of all clots and debris. The uterine incision was repaired with 0-vicryl in a running, locked fashion. A second imbricating layer of 0-monocryl suture was used to obtain excellent hemostasis. Good hemostasis was noted after hysterotomy closure. The uterus was returned to the abdomen and the gutters were cleared of all clots and debris. The hysterotomy was examined in situ and hemostasis was satisfactory. The ventral aspect of the fascia wasinspected and no fascial defects were found. The rectus muscles were inspected and found to be intact. The fascia was reapproximated with looped 0 PDS in a running fashion. The subcutaneous tissue was then irrigated and the bovie was used to obtain excellent hemostasis. The subcutaneous tissue was closed with three layers of 2- 0 and 3-0 vicryl. The skin was closed with 3-0 monocryl in a subcuticular fashion. The patient tolerated the procedure well and was taken to the recovery room in stable condition. Complications: Post hemorrhage Estimated Blood Loss: 800mL (+ 600mL prior to surgery in [facility]) (QBL 1360mL) Intraoperative Fluids: 1700mL crystalloid Sponge/Instrument/Needle Counts: The sponge, lap and needle counts were correct x3. Specimens Sent To Pathology: Placenta The attending, Eufemia Dean MD, was present for the menjivar portions of the procedure. [facility] Fellow Attestation I attest that I was present for and participated in the entire delivery from skin incisionto fascial closure and readily available for the remainder on 10/25/[address] Mg'snote and agree with the above documentation with revisions and the following addendum: Emergent CS called in the setting of heavy bright red vaginal bleeding and concern for abruption. Patient was verbally consented prior to the procedure. Procedure uncomplicated, though clinical presentation consistent with hemorrhage and concern for placental abruption. Deferred delayed cord clamping due to general anesthesia and concern for abruption. Following the procedure, I reviewed the intraoperative events and the procedure indication with the patient and her partner. I reviewed the need for emergent procedure. I addressed all their questions to the best of my ability and their satisfaction. The patient reported at this time that she had desired a tubal at delivery. Her partner has had a vasectomy. I reviewed with the patient that we did NOT perform a tubal since this had not been discussed prior to surgery during our discussion. Plan to address contraception . I reviewed with the patient that if in the future she does become she could be eligible for TOLAC given low transverse hysterotomy. Eufemia Dean MD, MPH Maternal- Medicine Fellow Cosigned by Radha Still MD at 10/26/2024 9:40 PM CDT Associated attestation - ChekoRadha MD - 10/26/2024 9:40 PM CDT I have reviewed the operative note for Manan Jaramillo, and I agree with the documentation by theresident/fellow. I was not present for the procedure. Radha Still MD 10/26/2024 documented in this encounter Plan of Treatment Not on file documented as of this encounter Procedures Procedure Name Priority Date/Time Associated Diagnosis Comments RESPIRATORY PATHOGEN PANEL Routine 10/28/2024 10:30 AM CDT DRUG SCREEN, URINE STAT 10/26/2024 9: 46 AM CDT CBC WITHOUT DIFFERENTIAL Routine 10/26/2024 4:55 AM CDT XR CHEST 1 VIEW ED Urgent/IP Urgent 10/25/2024 9:23 PM CDT SURGICAL PATHOLOGY Routine 10/25/2024 6 :57 PM CDT B CHECK SAMPLE STAT 10/25/2024 6:51 PM CDT HIV 1/2 ANTIBODY PLUS P24 ANTIGEN STAT 10/25/2024 6:51 PM CDT RPR STAT 10/25/2024 6:51 PM CDT EGFR STAT 10/25/2024 6:12 PM CDT APTT STAT 10/25/2024 6:12 PM CDT PROTIME-INR STAT 10/25/2024 6:12 PM CDT FIBRINOGEN STAT 10/25/2024 6:12 PM CDT CBC WITHOUT DIFFERENTIAL STAT 10/25/2024 6:12 PM CDT TYPE AND SCREEN STAT 10/25/2024 6:12 PM CDT COMPREHENSIVE METABOLIC PANEL STAT 10/25/2024 6:12 PM CDT SECTION 10/25/2024 5:49 PM CDT Case Notes Level [address] [facility] for abruption documented in this encounter Results * Respiratory pathogen panel Nasopharyngeal (10/28/2024 10:30 AM CDT) Influenza A RNA Not Detected Not Detected Influenza B RNA Not Detected Not Detected [facility] RSV RNA Not Detected Not Detected [facility] COVID-19 RNA Not Detected Not Detected [facility] Coronavirus 229E RNA Not Detected Not Detected [facility] Coronavirus HKU1 RNA Not Detected Not Detected [facility] Coronavirus NL63 RNA Not Detected Not Detected [facility] Coronavirus OC43 RNA Not Detected Not Detected [facility] Adenovirus DNA Not Detected Not Detected [facility] Metapneumovirus RNA Not Detected Not Detected [facility] Rhinovirus/Enterov irus RNA Not Detected Not Detected [facility] Parainfluenza 1 RNA Not Detected Not Detected [facility] Parainfluenza 2 RNA Not Detected Not Detected [facility] Parainfluenza 3 RNA Not Detected Not Detected [facility] Parainfluenza 4 RNA Not Detected Not Detected [facility] B. pertussis DNA Not Detected Not Detected [facility] B. parapertussis DNA Not Detected Not Detected [facility] C. pneumoniae DNA Not Detected Not Detected [facility] M. pneumoniae DNA Not Detected Not Detected [facility] Nasopharyngeal 10/28/2024 10 :30 AM CDT 10/28/2024 11:30 AM CDT Narrative [facility] - 10/28/2024 12:29 PM CDT Is the Patient experiencing symptoms consistent with COVID?->Yes Surveillance testing for transplant patient?->No Interpretive Data The MineWhat FilmArray Respiratory Panel (RP2.1) assay is a [...] assay has FDA clearance for testing of CUSTOMER SERVICE OFFICER swabs. The performance of additional specimen types has been assessed by the performing laboratory. The performance characteristics of this assay have been determined by [facility] Molecular Infectious Disease Laboratory. Current interpretive data was last revised on 22. Zoraida Schwartz CUSTOMER SERVICE OFFICER LAB MICROBIOLOGY - GENERAL ORDERABLES Final Result [facility] [place] [address] * (ABNORMAL) Drug screen, urine (10/26/2024 9:46 AM CDT) [facility] Drug screen, ur Positive(A) Comment: The following compounds were detected: Hydromorphone Repeated and verified. Philosophy Instructor review to follow. Interpretive Data This test [...] occur in very rare circumstances. Contact the [facility] core laboratory for consultation if needed. This test was developed and its performance characteristics determined by [facility]. It has not been cleared or approved by the U.S. Food and Drug Administration. Current interpretive data was last revised 2022. Testing performed by: [facility], [place]., [address] Director Review Verified [facility] Comment: Upon Philosophy Instructor review, no additional compounds were detected. Testing performed by: [place]., [address] Urine 10/26/2024 9:46 AM CDT 10/26/2024 10:18 AM CDT Narrative [facility] - 10/26/2024 12:27 PM CDT Is patient or admitted for delivery?->No 6800 us Jacobo Andre MD LAB URINE ORDERABLES Final Result [facility] [place] [address] * (ABNORMAL) CBC without differential (10/26/2024 4:55 AM CDT) Pathologist [facility] WBC 22.23(H) 3.80 - 9.90 K/cumm Hgb 10.8(L) 11.9 - 15.5 g/dL [facility] Hct 29.9(L) 35.6 - 45.5 % [facility] Plt 190 150 - 400 K/cumm [facility] MPV 10.8 9.1 - 12.3 fL [facility] RBC 3.28(L) 3.90 - 5.20 M/cumm [facility] MCV 91.2 81.3 - 96.4 fL [facility] MCH 32.9 27.1 - 33.3 pg [facility] MCHC 36.1(H) 32.3 - 35.7 g/dL [facility] RDW CV 14.3 11.1 - 14.9 % [facility] RDW SD 46.2 35.7 - 48.1 fL [facility] NRBC abs 0.02(H) 0.00 - 0.01 K/cumm [facility] Blood 10/26/2024 4:55 AM CDT 10/26/2024 5:19 AM CDT us Jacobo Andre MD LAB BLOOD ORDERABLES Final Result Performing Organization Address City/State/[facility] Co de Phone Number [facility] [place] [address] * XR Chest 1 View (10/25/2024 9:23 [...] CDT 10/26/2024 8:38 AM CDT Narrative PATHOLOGY [facility] - 10/29/2024 12:29 PM CDT EPIC results best viewed via link to PDF [facility] [place] [address] Note to Patients: This report may contain [...] Gender: F : 1980 (Age: 43) Address: [address] [place], [place] [id number] Hospital #: [id number] Taken:10/25/2024 Received:10/26/2024 Reported: 10/29/2024 Patient Type: [facility] Inpatient Service: Obstetrics Location: [place] [address] Physician(s): Mohsen Gallegos M.D. Diagnosis: A. Placenta, [...] x 3.1 cm - Membranes: Hunt-white to blanca, semitranslucent and thin - Membrane insertion: Marginal [...] from 2.2-3.1 cm. Summary of sections: A1 Office Machine Mechanic membranes and umbilical cord A2-A3 Office Machine Mechanic normal central placenta, full-thickness bisected A4 Office Machine Mechanic normal central placenta, full-thickness Jar: 3 dxb/10/27/2024 10:42 PA(s): Laron Del Rio Annie, ELVA([facility])CM By this signature, I attest that the above diagnosis is based upon my personal examination of the slides(and/or other material). Addenda/Procedures The performance characteristics of some immunohistochemical stains, fluorescence in-situ hybridization tests and immunophenotyping by flow cytometry cited in this report (if any) were determined by the Surgical Pathology and Flow Cytometry Departments at [facility] as part of an ongoing quality assurance test program manager program and in compliance with federally mandated [...] Surgical Pathology and Flow Cytometry Departments of [facility]. It has not been cleared or approved by the U. S. Food and Drug Administration. IMAGES AND SCANNED DOCUMENTS, IF INCLUDED, ONLY VIEWABLE IN PDF VERSION OF REPORT Jacobo Andre MD LAB PATHOLOGY ORDERABLES Fi nal Result PATHOLOGY [facility] 3rd Floor [place], [place] [phone] * Check Sample (10/25/2024 6:51 PM CDT) Pathologist [facility] ABO Rh A Positive [facility] HCLL OTHER 10/25/2024 6:51 PM CDT 10/25/2024 7:29 PM CDT Jacobo Andre MD LAB BLOOD ORDERABLES Final Result [facility] [place] [address] [facility] * HIV 1/2 Antibody plus p24 [...] GENERAL ORDERABLES Final Result Performing Organization Address City/[facility] Co de Phone Number [facility] [place] [address] * RPR Blood (10/25/2024 6:51 PM CDT) RPR Nonreactive Nonreactive Blood 10/25/2024 6:51 PM CDT 10/25/2024 6:57 PM CDT Jacobo Andre MD LAB MICROBIOLOGY - GENERAL ORDERABLES Final Result Performing Organization Address [facility] de Phone Number [facility] Department [place] [address] * eGFR (10/25/2024 6:12 PM CDT) eGFR [...] BLOOD ORDERABLES Final Result Performing Organization Address City/[facility]/ZIP Co de Phone Number [facility] [place] [address] * Type and screen (10/25/2024 6:12 PM CDT) Saman, indirect Negative ABO Rh A Positive [facility] Blood 10/25/2024 6:12 PM CDT 10/25/2024 6:28 PM CDT Jacobo Andre MD LAB BLOOD BANK TEST ORDERAB LES Final Result Performing Organization Address [facility] Co de Phone Number [facility] [place] [address] * (ABNORMAL) Comprehensive metabolic panel (10/25/2024 6:12 PM CDT) Pathologist [facility] Sodium 138 135 - 145 mmol/L Potassium, pl 3.8 3.3 - 4.9 mmol/L [facility] Chloride 102 97 - 110 mmol/L [facility] CO2 25 22 - 32 mmol/L [facility] Anion gap 11 2 - 15 mmol/L [facility] BUN 8 6 - 25 mg/dL [facility] Creatinine 0.57(L) 0.60 - 1.10 mg/dL [facility] Glucose 148 70 - 199 mg/dL [facility] Comment: Interpretive Data Fasting glucose >/= [...] 2022. Calcium 8.9 8.5 - 10.3 mg/dL [facility] Bilirubin, total <0.2 0.1 - 1.2 mg/dL [facility] Protein, pl 5.7(L) 6.5 - 8.5 g/dL [facility] Albumin 2.9(L) 3.5 - 5.0 g/dL [facility] Alk phos 121 40 - 130 Units/L [facility] ALT 16 7 - 45 Units/L [facility] AST 22 10 - 45 Units/L [facility] Blood 10/25/2024 6:12 PM CDT 10/25/2024 6:29 PM CDT us Jacobo Andre MD LAB BLOOD ORDERABLES Final Result [facility] [place] [address] * (ABNORMAL) CBC without differential (10/25/2024 6:12 PM CDT) WBC 15.50(H) 3.80 - 9.90 K/cumm Hgb 12.1 11.9 - 15.5 g/dL [facility] Hct 34.5(L) 35.6 - 45.5 % [facility] Plt 235 150 - 400 K/cumm [facility] MPV 11.1 9.1 - 12.3 fL [facility] RBC 3.76(L) 3.90 - 5.20 M/cumm [facility] MCV 91.8 81.3 - 96.4 fL [facility] MCH 32.2 27.1 - 33.3 pg [facility] MCHC 35.1 32.3 - 35.7 g/dL [facility] RDW CV 14.2 11.1 - 14.9 % [facility] RDW SD 46.3 35.7 - 48.1 fL [facility] NRBC abs 0.05(H) 0.00 - 0.01 K/cumm [facility] Blood 10/25/2024 6:12 PM CDT 10/25/2024 6:28 PM CDT Jacobo Andre MD LAB BLOOD ORDERABLES Final Result Performing Organization Address City/[facility] Co de Phone Number [facility] [place] [address] * Protime-INR (10/25/2024 6:12 PM CDT) PT 9.7 9.7 - 13.0 sec INR 0.90 0.90 - 1.20 [facility] Comment: Interpretive data Oral anticoagulant therapeutic ranges: Venous thromboembolism prophylaxis or treatment: 2.0-3.0 CARDIOLOGY Standard range: 2.0-3.0 High-intensity range: 2.5-3.5 Refer to indication-specific guidelines for appropriate target ranges for prosthetic heart valve replacement. Current interpretive data was last revised on 2019. Blood 10/25/2024 6:12 PM CDT 10/25/2024 6:26 PM CDT Jacobo Andre MD LAB BLOOD ORDERABLES Final Result Performing Organization Address [facility] [place] [address] * (ABNORMAL) aPTT (10/25/2024 6:12 PM CDT) [...] BLOOD ORDERABLES Final Result Performing Organization Address City/[facility] Co de Phone Number [facility] [place] [address] * (ABNORMAL) Fibrinogen (10/25/2024 6:12 PM CDT) Fibrinogen 532(H) 170 - 400 mg/dL Blood 10/25/2024 6:12 PM CDT 10/25/2024 6:26 PM CDT us Jacobo Andre MD LAB BLOOD ORDERABLES Final Result Performing Organization Address City/State/ZIP Co mn Phone Number [facility] Department [place] [address] documented in this encounter Visit Diagnoses Diagnosis Placental abruption in third trimester- Primary Encounter for routine follow-up documented in this encounter Admitting Diagnoses Diagnosis Placental abruption in third trimester documented in this encounter Administered Medications Inactive Administered Medications - up to 3 most recent administrations Medication Order MAR Action Action Date Dose Rate Site acetaminophen (TYLENOL) tablet 1,000 mg 1,000 mg, oral, Every 6 hours scheduled, First dose on Fri10/25/24 at 2100, For 24 hours, When able to tolerate PO. Max 4 doses. Anesthesia orders for the first 24 hours ., Indications: PainIndications:Pain Given 10/26/2024 1:25 PM CDT 1,000 mg Given 10/26/2024 8:12 AM CDT 1,000 mg Given 10/26/2024 2:36 AM CDT 1,000 mg acetaminophen (TYLENOL) tablet 1,000 mg 1,000 mg, oral, Every 6 hours, First dose on Fri10/26/24 at 2215, Start in 24 hours after Anesthesia no longer covering., Indications: PainIndications:Pain Given 10/28/2024 10:35 AM CDT 1,000 mg Given 10/28/2024 4:20 AM CDT 1,000 mg Given 10/27/2024 10:10 PM CDT 1,000 mg benzocaine-menthoL (CHLORASEPTIC) lozenge 1 lozenge 1 lozenge, mouth/throat, Every 4 hours PRN, sore throat, Starting on Fri10/26/24 at 0713 Given 10/28/2024 7:55 AM CDT 1 lozenge Given 10/28/2024 4:19 AM CDT 1 lozenge Given 10/27/2024 10:58 PM CDT 1 lozenge cephalexin (KEFLEX) capsule 500 mg 500 mg, oral, 2 times daily, First dose on Fri10/25/24 at 2100, For 48 hours, Indications: Abdominal/Pelvic InfectionIndications:Abdominal/Pelvic Infection Given 10/27/2024 9:35 AM CDT 500 mg Given 10/26/2024 8:54 PM CDT 500 mg Given 10/26/2024 8:13 AM CDT 500 mg cyclobenzaprine (FLEXERIL) tablet 5 mg 5 mg, oral, 3 times daily PRN, muscle spasms, Starting on Fri10/25/24 at 2025, For 6 doses Given 10/28/2024 11:37 AM CDT 5 mg Given 10/28/2024 4:27 AM CDT 5 mg Given 10/27/2024 1:11 PM CDT 5 mg docusate sodium (COLACE) capsule 100 mg 100 mg, oral, 2 times daily, First dose on Fri10/25/24 at 2100, Hold if diarrhea., Indications: constipation, Stool SoftenerIndications:constipation,Stool Softener Given 10/28/2024 7:54 AM CDT 100 mg Given 10/27/2024 10:10 PM CDT 100 mg Given 10/27/2024 9:35 AM CDT 100 mg enoxaparin (LOVENOX) syringe 40 mg 40 mg, subcutaneous, Every 12 hours scheduled, First dose on Fri10/26/24 at 2100, Indications: Deep Vein Thrombosis PreventionIndications:Deep Vein Thrombosis Prevention Given 10/28/2024 7:54 AM CDT 40 mg Left Upper Arm Given 10/27/2024 10:11 PM CDT 40 mg L eft Upper Arm Given 10/27/2024 9:35 AM CDT 40 mg Le ft Upper Arm gabapentin (NEURONTIN) capsule 300 mg 300 mg, oral, 2 times daily, First dose on Fri10/25/24 at 2100, For 6 doses Given 10/26/2024 8:13 AM CDT 300 mg Given 10/25/2024 8:47 PM CDT 300 mg gabapentin (NEURONTIN) capsule 300 mg 300 mg, oral, 3 times daily, First dose (after last modification) on Fri10/26/24 at 1600 Given 10/28/2024 3:36 PM CDT 300 mg Given 10/28/2024 7:54 AM CDT 300 mg Given 10/27/2024 10:10 PM CDT 300 mg HYDROmorphone (DILAUDID) 0.5 mg/0.5 mL injection - ADS Override Pull Starting on Fri10/25/24 at 2219, For 1 dose, Created by cabinet override HYDROmorphone (DILAUDID) 20 mg/100 mL (0.2 mg/mL) in 0.9% sodium chloride cartridge (premix) Continuous: none, REFINING ENGINEER dose: 0.2 mg, REFINING ENGINEER lockout: 10 Minutes, 1 hour limit (includes Continuous and REFINING ENGINEER dose): 1.2 mg, intravenous, Continuous, Starting on Fri10/25/24 at 2015, Until Fri10/25/24 at 2022, 100 mL, Indications: Pain, RoutineIndications:Pain New Syringe/Cartridge 10/25/2024 8:00 PM CDT HYDROmorphone (DILAUDID) 20 mg/100 mL (0.2 mg/mL) in 0.9% sodium chloride cartridge (premix) Continuous: none, REFINING ENGINEER dose: Other, REFINING ENGINEER dose (mg): 0.4, REFINING ENGINEER lockout: 10 Minutes, 1 hour limit (includes Continuous and REFINING ENGINEER dose): Other, 1 hour limit (mg): 2, intravenous, Continuous, Starting on Fri10/25/24 at 2100, Until Fri10/26/24 at 1011, 100 mL, Indications: Pain, RoutineIndications:Pain Restarted 10/26/2024 1:22 AM CDT Rate/Dose Change 10/25/2024 8:30 PM CDT HYDROmorphone (DILAUDID) injection 0.2 mg 0.2 mg, intravenous, Administer over 2 Minutes, Every 3 hours PRN, 1st line for pain, if not tolerating PO., Starting on Fri10/26/24 at 1032, For 24 hours, Indications: PainIndications:Pain Given 10/26/2024 10:33 PM CDT 0.2 mg HYDROmorphone (DILAUDID) injection 0.4 mg 0.4 mg, intravenous, Administer over 2 Minutes, Every 3 hours PRN, 2nd line for pain, Starting on Fri10/25/24 at 1934, For 24 hours, May administer 30 minutes after 1st line analgesic agent for uncontrolled or increasing pain. May repeat in 30 minutes if pain is uncontrolled or increasing. Max 2 doses within one dosing interval. Anesthesia orders for the first 24 hours ., Indications: PainIndications:Pain Given 10/25/2024 8:20 PM CDT 0.4 mg HYDROmorphone (DILAUDID) injection 0.4 mg 0.4 mg, intravenous, Administer over 2 Minutes, Every 3 hours PRN, 2nd line for pain, if not tolerating PO intake., Starting on Fri10/26/24 at 1032, For 24 hours, May administer 30 minutes after 1st line analgesic agent for uncontrolled or increasing pain. May repeat in 30 minutes if pain is uncontrolled or increasing. Max 2 doses within one dosing interval., Indications: PainIndications:Pain Given 10/26/2024 5:03 PM CDT 0.4 mg Given 10/26/2024 12:30 PM CDT 0.4 mg HYDROmorphone (DILAUDID) injection 0.5 mg 0.5 mg, intravenous, Administer over 2 Minutes, Once, On Fri10/25/24 at 2300, For 1 dose Given 10/25/2024 10:24 PM CDT 0.5 mg ibuprofen (ADVIL,MOTRIN) tablet 600 mg 600 mg, oral, Every 6 hours, First dose (after last modification) on Fri10/26/24 at 1500, Start in 24 hours after Anesthesia no longer covering., Indications: CrampsIndications:Cramps Given 10/28/2024 10:34 AM CDT 600 mg Given 10/28/2024 4:20 AM CDT 600 mg Given 10/27/2024 10:11 PM CDT 600 mg ketorolac (TORADOL) 30 mg/mL injection 30 mg 30 mg, intravenous, Every 6 hours scheduled, First dose on Fri10/26/24 at 0200, For 24 hours, Max 4 doses. Anesthesia orders for the first 24 hours ., Indications: PainIndications:Pain Given 10/26/2024 8:11 AM CDT 30 mg Given 10/26/2024 2:37 AM CDT 30 mg Lactated Ringer's (LR) infusion 125 mL/hr, intravenous, Continuous, Starting on Fri10/26/24 at 0015, Until regular diet. Restarted 10/26/2024 1:24 AM CDT 125 mL/hr 125 mL/hr Lactated Ringer's (LR) infusion 50 mL/hr, intravenous, Continuous, Starting on Fri10/25/24 at 2030 New Bag 10/25/2024 8:02 PM CDT 50 mL/hr 50 mL/hr lidocaine (LIDODERM) 5 % patch 1 patch 1 patch, transdermal, Administer over 12 Hours, Every 24 hours, First dose on Fri10/26/24 at 0015, Do not cover the holes on the top side of the patch., Apply to affected area: abdomen Medication Applied 10/25/2024 11:38 PM CDT 1 patch Other (Comment) lidocaine (LIDODERM) 5 % patch 2 patch 2 patch, transdermal, Administer over 12 Hours, Every 24 hours, First dose (after last modification) on Fri10/27/24 at 0015, Do not cover the holes on the top side of the patch., Apply to affected area: abdomen Medication Applied 10/27/2024 10:09 AM CDT 2 patches Other (Comment) metroNIDAZOLE (FLAGYL) tablet 500 mg 500 mg, oral, 2 times daily, First dose on Fri10/25/24 at 2100, For 48 hours, Indications: Abdominal/Pelvic InfectionIndications :Abdominal/Pelvic Infection Given 10/27/2024 9:35 AM CDT 500 mg Given 10/26/2024 8:54 PM CDT 500 mg Given 10/26/2024 8:12 AM CDT 500 mg miSOPROStoL (CYTOTEC) 200 mcg tablet - ADS Override Pull Starting on Fri10/25/24 at 2228, For 1 dose, Created by cabinet override miSOPROStoL (CYTOTEC) tablet 800 mcg 800 mcg, rectal, Once, On Fri10/26/24 at 0015, For 1 dose, Indications: HemorrhageIndications: Hemorrhage Given 10/25/2024 10:30 PM CDT 800 mcg naloxone (NARCAN) 0.4 mg/mL injection 0.04-0.4 mg 0.04-0.4 mg, intravenous, Every 10 min PRN, other, excessive sedation/respiratory depression, Starting on Fri10/25/24 at 1934, Dilute 0.4 mg with 9 mL NS (final concentration 0.04 mg/mL). For respiratory depression (respiratory rate less than 6), administer 0.4 mg IVP over 30 seconds. For excessive sedation administer 0.04 mg (1 mL) every 1 minute until desired level of alertness. Stop REFINING ENGINEER and notify covering MD. This order has been ordered with REFINING ENGINEER infusion, please review upon the discontinuation of REFINING ENGINEER. For IV, administer over 30 seconds., Indications: Opioid ToxicityIndications:Opioid Toxicity ondansetron (ZOFRAN) injection 4 mg 4 mg, intravenous, Administer over 2 Minutes, Every 6 hours PRN, nausea, vomiting, if not tolerating PO, Starting on Fri10/25/24 at 1934, For 24 hours, Proceed to prochlorperazine if ondansetron has been given within the last 6 hours. Repeated doses do not confer additional therapeutic benefit. Proceed to prochlorperazine if no relief within 30 minutes. Anesthesia orders for the first 24 hours ., Indications: Nausea and VomitingIndications:Nausea and Vomiting Given 10/25/2024 11:30 PM CDT 4 m g ondansetron (ZOFRAN) injection 4 mg 4 mg, intravenous, Administer over 2 Minutes, Every 6 hours PRN, nausea, vomiting, if not tolerating PO, Starting on Fri10/26/24 at 1655, Start in 24 hours after Anesthesia no longer covering., Indications: Nausea and VomitingIndications:Nausea and Vomiting ondansetron ODT (ZOFRAN-ODT) disintegrating tablet 4 mg 4 mg, oral, Every 6 hours PRN, nausea, vomiting, Starting on Fri10/26/24 at 1655, Start in 24 hours after Anesthesia no longer covering. If administering by mouth, place tablet on tongue and allow to dissolve., Indications: Nausea and VomitingIndications:Nausea and Vomiting oxyCODONE (ROXICODONE) tablet 5 mg 5 mg, oral, Every 4 hours PRN, 1st line for pain, Starting on Fri10/25/24 at 1934, For 24 hours, When able to tolerate PO. Anesthesia orders for the first 24 hours ., Indications: PainIndications:Pain Given 10/26/2024 8:54 PM CDT 5 mg Given 10/26/2024 5:04 PM CDT 5 mg Given 10/26/2024 1:25 PM CDT 5 mg oxyCODONE (ROXICODONE) tablet 5 mg 5 mg, oral, Every 4 hours PRN, 1st line for pain, Starting on Fri10/26/24 at 2256, For 24 hours, When able to tolerate PO. Anesthesia orders for the first 24 hours ., Indications: PainIndications:Pain Given 10/27/2024 6:45 AM CDT 5 mg Given 10/27/2024 3:00 AM CDT 5 mg oxyCODONE (ROXICODONE) tablet 5 mg 5 mg, oral, Every 3 hours PRN, breakthrough pain, Starting on Fri10/27/24 at 0919, Indications: PainIndications:Pain Given 10/28/2024 3:36 PM CDT 5 mg Given 10/28/2024 10:35 AM CDT 5 mg Given 10/28/2024 7:54 AM CDT 5 mg phenoL (CHLORASEPTIC) 1.4 % oral spray 1 spray 1 spray, mouth/throat, Every 4 hours PRN, sore throat, Second Line, Starting on Fri10/28/24 at 0920 PNV with [id number] tablet 1 tablet 1 tablet, oral, Daily, First dose on Fri10/25/24 at 2015, Begin when normal bowel activity resumes., Indications: Vitamin Deficiency PreventionIndications:Vitamin Deficiency Prevention Given 10/28/2024 7:54 AM CDT 1 tablet Given 10/27/2024 9:35 AM CDT 1 tablet Given 10/26/2024 8:13 AM CDT 1 tablet polyethylene glycol (MIRALAX) packet 17 g 17 g, oral, Daily, First dose (after last modification) on Fri10/27/24 at 0900, Hold if diarrhea., Indications: constipationIndications:constipation Given 10/28/2024 7:54 AM CDT 17 g Given 10/27/2024 9:35 AM CDT 17 g senna (SENOKOT) tablet 1 tablet 1 tablet, oral, 2 times daily, First dose on Fri10/25/24 at 2100, Hold if diarrhea., Indications: constipationIndications:constipation Given 10/28/2024 7:54 AM CDT 1 table t Given 10/27/2024 10:10 PM CDT 1 tablet Given 10/27/2024 9:35 AM CDT 1 tablet simethicone (MYLICON) chewable tablet 160 mg 160 mg, oral, 4 times daily PRN (after meals, bedtime), flatulence, Starting on Fri10/26/24 at 2202, Indications: FlatulenceIndications:Flatulence sodium chloride 0.9% flush 0.5-20 mL 0.5-20 mL, intra-catheter, Every 8 hours scheduled, First dose on Fri10/25/24 at 2200, Flush volume based on line type and size. Given 10/26/2024 5:05 PM CDT 10 mL documented in this encounter Discontinued Medications Medication Sig Discontinue Reason Start Date End Da te aspirin 81 mg enteric coated tablet Take 2 tablets (162 mg total) by mouth daily Stop Taking at Discharge 10/28/2024 documented as of this encounter Active and Recently Administered Medications Times are shown in CDT. Scheduled Medication Order 10/26/2024 10/27/2024 10/28/2024 acetaminophen (TYLENOL) tablet 1,000 mg (COMPLETED) 1,000 mg, oral, Every 6 hours scheduled, First dose on Fri10/25/24 at 2100, For 24 hours, When able to tolerate PO. Max 4 doses. Anesthesia orders for the first 24 hours ., Indications: Pain 0236 (Given - Provider: Annalisa Herring RN)0812 (Given - Provider: Elly Adams, YOVANI)1325 (Given - Provider: Elly Adams, RN) acetaminophen (TYLENOL) tablet 1,000 mg 1,000 mg, oral, Every 6 hours, First dose on Fri10/26/24 at 2215, Start in 24 hours after Anesthesia no longer covering., Indications: Pain 2053 (Given - Provider: Christine Arevalo, YOVANI) 0300 (Given - Provider: Christine Arevalo RN)0935 (Given - Provider: Carmelina Wells, YOVANI)1600 (Given - Provider: Carmelina Wells, RN)2210 (Given - Provider: Kalee Gómez, YOVANI) 0420 (Given - Provider: Kalee Gómez, YOVANI)1035 (Given - Provider: Keeley Pena RN)1615 (Due) cephalexin (KEFLEX) capsule 500 mg (COMPLETED) 500 mg, oral, 2 times daily, First dose on Fri10/25/24 at 2100, For 48 hours, Indications: Abdominal/Pelvic Infection 08 (Given - Provider: Elly Adams, YOVANI)2053 (Given - Provider: Christine Arevalo, YOVANI) 0935 (Given - Provider: Carmelina Wells RN) docusate sodium (COLACE) capsule 100 mg 100 mg, oral, 2 times daily, First dose on Fri10/25/24 at 2100, Hold if diarrhea., Indications: constipation, Stool Softener 08 (Given - Provider: Elly Adams RN)2053 (Given - Provider: Christine Arevalo RN) 0935 (Given - Provider: Carmelina Wells RN)2209 (Given - Provider: Kalee Gómez, YOVANI) 075 (Given - Provider: Keeley Pena RN) enoxaparin (LOVENOX) syringe 40 mg 40 mg, subcutaneous, Every 12 hours scheduled, First dose on Fri10/26/24 at 2100, Indications: Deep Vein Thrombosis Prevention 2054 (Given - Provider: Christine Arevalo RN) 0935 (Given - Provider: Carmelina Wells RN)221 (Given - Provider: Kalee Gómez, YOVANI) 0754 (Given - Provider: Keeley Pena RN) gabapentin (NEURONTIN) capsule 300 mg (CANCELED) 300 mg, oral, 2 times daily, First dose on Fri10/25/24 at 2100, For 6 doses 812 (Given - Provider: Elly Adams, YOVANI) gabapentin (NEURONTIN) capsule 300 mg 300 mg, oral, 3 times daily, First dose (after last modification) on Fri10/26/24 at 1600 1704 (Given - Provider: Elly Adams, YOVANI)2053 (Given - Provider: Christine Arevalo RN) 0935 (Given - Provider: Carmelina Wells RN)1600 (Given - Provider: Carmelina Wells RN)2210 (Given - Provider: Kalee Gómez, YOVANI) 0754 (Given - Provider: Keeley Pena, YOVANI)1536 (Given - Provider: Keeley Pena RN) ibuprofen (ADVIL,MOTRIN) tablet 600 mg 600 mg, oral, Every 6 hours, First dose (after last modification) on Fri10/26/24 at 1500, Start in 24 hours after Anesthesia no longer covering., Indications: Cramps 1325 (Given - Provider: Elly Adams RN)2054 (Given - Provider: Christine Arevalo, YOVANI) 0259 (Given - Provider: Christine Arevalo, YOVANI)0935 (Given - Provider: Carmelina Wells RN)1600 (Given - Provider: Carmelina Wells RN)2211 (Given - Provider: Kalee Gómez RN) 0420 (Given - Provider: Kalee Gómez RN)1034 (Given - Provider: Keeley Pena RN)1709 (Not Given - Provider: Keeley Pena RN - Reason: Other) ketorolac (TORADOL) 30 mg/mL injection 30 mg (CANCELED) 30 mg, intravenous, Every 6 hours scheduled, First dose on Fri10/26/24 at 0200, For 24 hours, Max 4 doses. Anesthesia orders for the first 24 hours ., Indications: Pain 0237 (Given - Provider: Annalisa Herring RN)0811 (Given - Provider: Elly Adams RN) lidocaine (LIDODERM) 5 % patch 2 patch 2 patch, transdermal, Administer over 12 Hours, Every 24 hours, First dose (after last modification) on Fri10/27/24 at 0015, Do not cover the holes on the top side of the patch., Apply to affected area: abdomen 1009 (Medication Applied - Provider: Carmelina Wells RN - Comment: Abdomen)2200 (Medication Removed - Provider: Kalee Gómez, YOVANI) 0000 (Not Given - Provider: Kalee Gómez RN - Reason: Order parameters not met) metroNIDAZOLE (FLAGYL) tablet 500 mg (COMPLETED) 500 mg, oral, 2 times daily, First dose on Fri10/25/24 at 2100, For 48 hours, Indications: Abdominal/Pelvic Infection 0812 (Given - Provider: Elly Adams, YOVANI)2053 (Given - Provider: Christine Arevalo, YOVANI) 0935 (Given - Provider: Carmelina Wells, YOVANI) PNV with [id number] tablet 1 tablet 1 tablet, oral, Daily, First dose on Fri10/25/24 at 2014, Begin when normal bowel activity resumes., Indications: Vitamin Deficiency Prevention 08 (Given - Provider: Elly Adams, YOVANI) 09 (Given - Provider: Carmelina Wells, YOVANI) 0754 (Given - Provider: Keeley Pena, YOVANI) polyethylene glycol (MIRALAX) packet 17 g 17 g, oral, Daily, First dose (after last modification) on Fri10/27/24 at 0900, Hold if diarrhea., Indications: constipation 934 (Given - Provider: Carmelina Wells RN) 075 (Given - Provider: Keeley Pena, YOVANI) senna (SENOKOT) tablet 1 tablet 1 tablet, oral, 2 times daily, First dose on Fri10/25/24 at 2100, Hold if diarrhea., Indications: constipation 0813 (Given - Provider: Elly Adams, YOVANI)2053 (Given - Provider: Christine Arevalo, YOVANI) 0935 (Given - Provider: Carmelina Wells, YOVANI)0 (Given - Provider: Kalee Gómez RN) 0754 (Given - Provider: Keeley Pena, YOVANI) sodium chloride 0.9% flush 0.5-20 mL 0.5-20 mL, intra-catheter, Every 8 hours scheduled, First dose on Fri10/25/24 at 2200, Flush volume based on line type and size. 0433 [facility] Provider: Annalisa Herring, YOVANI)1705 (Given - Provider: Elly Adams, YOVANI)2055 (Not Given - Provider: Christine Arevalo RN - Reason: Other) 0700 (Not Given - Provider: Carmelina Wells RN - Reason: Loss of IV access)1400 (Not Given - Provider: Carmelina Wells RN - Reason: Loss of IV access) 0606 (Not Given - Provider: Kalee Gómez RN - Reason: Loss of IV access)0607 (Not Given - Provider: Kalee Gómez RN - Reason: Loss of IV access)1400 (Not Given - Provider: Keeley Pena RN - Reason: Loss of IV access) Continuous Medication Order 10/26/2024 10/27/2024 10/28/2024 HYDROmorphone (DILAUDID) 20 mg/100 mL (0.2 mg/mL) in 0.9% sodium chloride cartridge (premix) (CANCELED) Continuous: none, REFINING ENGINEER dose: Other, REFINING ENGINEER dose (mg): 0.4, REFINING ENGINEER lockout: 10 Minutes, 1 hour limit (includes Continuous and REFINING ENGINEER dose): Other, 1 hour limit (mg): 2, intravenous, Continuous, Starting on Fri10/25/24 at 2100, Until Fri10/26/24 at 1011, 100 mL, Indications: Pain, Routine 0027 (Stopped (Dual Sign) - Provider: Annalisa Herring RN)0122 (Restarted - Provider: Annalisa Herring RN)0727 (Handoff - Provider: Elly Adams, RN)1014 (Stopped (Dual Sign) - Provider: Elly Adams, YOVANI) Lactated Ringer's (LR) infusion(Linked Group 1) 125 mL/hr, intravenous, Continuous, Starting on Fri10/26/24 at 0015, Until regular diet. 0124 (Restarted - Provider: Annalisa Herring RN) 2139 (Due: Stopped) PRN Medication Order 10/26/2024 10/27/2024 10/28/2024 benzocaine-menthoL (CHLORASEPTIC) lozenge 1 lozenge 1 lozenge, mouth/throat, Every 4 hours PRN, sore throat, Starting on Fri10/26/24 at 0713 0724 (Given - Provider: Elly Adams, RN) 1311 (Given - Provider: Carmelina Wells RN)2258 (Given - Provider: Kalee Gómez, RN) 0419 (Given - Provider: Kalee Gómez, RN)0755 (Given - Provider: Keeley Pena, YOVANI) cyclobenzaprine (FLEXERIL) tablet 5 mg (COMPLETED) 5 mg, oral, 3 times daily PRN, muscle spasms, Starting on Fri10/25/24 at 2026, For 6 doses 1000 (Given - Provider: Elly Adams RN)1703 (Given - Provider: Elly Adams, YOVANI) 0300 (Given - Provider: Christine Arevalo, YOVANI)1311 (Given - Provider: Carmelina Wells RN) 0427 (Given - Provider: Kalee Gómez, YOVANI)1137 (Given - Provider: Keeley Pena RN) hydrocortisone (ANUSOL-HC) 2.5 % rectal cream rectal, 3 times daily PRN, itching, irritation, Starting on Fri10/25/24 at 1934, Indications: Hemorrhoids HYDROmorphone (DILAUDID) injection 0.2 mg () 0.2 mg, intravenous, Administer over 2 Minutes, Every 3 hours PRN, 1st line for pain, if not tolerating PO., Starting on Fri10/26/24 at 1032, For 24 hours, Indications: Pain 2233 (Given - Provider: Christine Arevalo, YOVANI) HYDROmorphone (DILAUDID) injection 0.4 mg () 0.4 mg, intravenous, Administer over 2 Minutes, Every 3 hours PRN, 2nd line for pain, if not tolerating PO intake., Starting on Fri10/26/24 at 1032, For 24 hours, May administer 30 minutes after 1st line analgesic agent for uncontrolled or increasing pain. May repeat in 30 minutes if pain is uncontrolled or increasing. Max 2 doses within one dosing interval., Indications: Pain 1230 (Given - Provider: Elly Adams RN)1703 (Given - Provider: Elly Adams, YOVANI) nlewnyi-qhpef-lirapys (MMR) 1,000-12,500 TCID50/0.5 mL live vaccine 0.5 mL 0.5 mL, subcutaneous, During hospitalization, immunization, Starting on Fri10/25/24 at 1934, For 1 dose, If not rubella immune. Warning: This is a live or live attenuated vaccine. Refrigerate. Two-component vaccine. Must be reconstituted with diluent provided. Document the NDC, Lot number, expiration date from the DRY POWDER vial component at administration., Indications: Ytxclbc-Javsz-Bvhbaml Vaccination naloxone (NARCAN) 0.4 mg/mL injection 0.04-0.4 mg 0.04-0.4 mg, intravenous, Every 10 min PRN, other, excessive sedation/respiratory depression, Starting on Fri10/25/24 at 1934, Dilute 0.4 mg with 9 mL NS (final concentration 0.04 mg/mL). For respiratory depression (respiratory rate less than 6), administer 0.4 mg IVP over 30 seconds. For excessive sedation administer 0.04 mg (1 mL) every 1 minute until desired level of alertness. Stop REFINING ENGINEER and notify covering MD. This order has been ordered with REFINING ENGINEER infusion, please review upon the discontinuation of REFINING ENGINEER. For IV, administer over 30 seconds., Indications: Opioid Toxicity ondansetron (ZOFRAN) injection 4 mg(Linked Group 2) 4 mg, intravenous, Administer over 2 Minutes, Every 6 hours PRN, nausea, vomiting, if not tolerating PO, Starting on Fri10/26/24 at 1655, Start in 24 hours after Anesthesia no longer covering., Indications: Nausea and Vomiting ondansetron ODT (ZOFRAN-ODT) disintegrating tablet 4 mg(Linked Group 2) 4 mg, oral, Every 6 hours PRN, nausea, vomiting, Starting on Fri10/26/24 at 1655, Start in 24 hours after Anesthesia no longer covering. If administering by mouth, place tablet on tongue and allow to dissolve., Indications: Nausea and Vomiting oxyCODONE (ROXICODONE) tablet 5 mg () 5 mg, oral, Every 4 hours PRN, 1st line for pain, Starting on Fri10/25/24 at 1934, For 24 hours, When able to tolerate PO. Anesthesia orders for the first 24 hours ., Indications: Pain 0447 (Given - Provider: Annalisa Herring RN)1000 (Given - Provider: Elly Adams, YOVANI)1325 (Given - Provider: Elly Adams, YOVANI)1704 (Given - Provider: Elly Adams, YOVANI)2054 (Given - Provider: Christine Arevalo, YOVANI) oxyCODONE (ROXICODONE) tablet 5 mg (CANCELED) 5 mg, oral, Every 4 hours PRN, 1st line for pain, Starting on Fri10/26/24 at 2256, For 24 hours, When able to tolerate PO. Anesthesia orders for the first 24 hours ., Indications: Pain 0300 (Given - Provider: Christine Arevalo, YOVANI)0645 (Given - Provider: Christine Arevalo RN) oxyCODONE (ROXICODONE) tablet 5 mg 5 mg, oral, Every 3 hours PRN, breakthrough pain, Starting on Fri10/27/24 at 0919, Indications: Pain 1009 (Given - Provider: Carmelina Wells RN)1311 (Given - Provider: Carmelina Wells RN)1600 (Given - Provider: Carmelina Wells RN)1855 (Given - Provider: Carmelina Wells RN)2210 (Given - Provider: Kalee Gómez, YOVANI) 0130 (Given - Provider: Kalee Gómez, YOVANI)0420 (Given - Provider: Kalee Gómez, YOVANI)0754 (Given - Provider: Keeley Pena RN)1035 (Given - Provider: Keeley Pena RN)1536 (Given - Provider: Keeley Pena RN) phenoL (CHLORASEPTIC) 1.4 % oral spray 1 spray 1 spray, mouth/throat, Every 4 hours PRN, sore throat, Second Line, Starting on Fri10/28/24 at 0920 simethicone (MYLICON) chewable tablet 160 mg 160 mg, oral, 4 times daily PRN (after meals, bedtime), flatulence, Starting on Fri10/26/24 at 2202, Indications: Flatulence sodium chloride 0.9% flush 0.5-20 mL 0.5-20 mL, intra-catheter, As needed, line care, Starting on Fri10/25/24 at 1934, Flush volume based on line type and size. Flush before and after each use. varicella zoster (VARIVAX) vaccine - live 0.5 mL 0.5 mL, subcutaneous, During hospitalization, immunization, Starting on Fri10/25/24 at 1934, For 1 dose, if not immune Warning: This is a live or live attenuated vaccine. Do not administer to individuals who are immunodeficient or immunosuppressed or to women. Refrigerate. Two-component vaccine. Must be reconstituted with diluent provided. Document the NDC, Lot number, expiration date from the DRY POWDER vial component at administration., Indications: varicella prevention Linked Groups Order Group 1: oxytocin 30 unit/500 mL (0.06 unit/mL) in sodium chloride 0.9% (premix) solution () 95-334 milliunits/min (95-334 mL/hr), 0.06 units/mL, intravenous, Titrated, Starting on Fri10/25/24 at 2015, Until Fri10/26/24 at 0014, Indications: Hemorrhage Prevention, 334 faith-units/minutes for 30 minutes then decrease infusion to 95 faith-units/min for 3.5 hours. , Routine Followed by Lactated Ringer's (LR) infusionJump to med 125 mL/hr, intravenous, Continuous, Starting on Fri10/26/24 at 0015, Until regular diet. Group 2: ondansetron ODT (ZOFRAN-ODT) disintegrating tablet 4 mgJump to med 4 mg, oral, Every 6 hours PRN, nausea, vomiting, Starting on Fri10/26/24 at 1655, Start in 24 hours after Anesthesia no longer covering. If administering by mouth, place tablet on tongue and allow to dissolve., Indications: Nausea and Vomiting Or ondansetron (ZOFRAN) injection 4 mgJump to med 4 mg, intravenous, Administer over 2 Minutes, Every 6 hours PRN, nausea, vomiting, if not tolerating PO, Starting on Fri10/26/24 at 1655, Start in 24 hours after Anesthesia no longer covering., Indications: Nausea and Vomiting documented in this encounter Orders Medications Ordered That Aron ht Not Have Been Administered Count Last Ordered Date First Ordered Date phenoL (CHLORASEPTIC) 1.4 % oral spray 1 spray 2 10/28/2024 simethicone (MYLICON) chewab le tablet 160 mg 1 10/26/2024 ceFAZolin (ANCEF) 2,000 mg/2 0 mL in sterile water (premix) 2,000 mg 1 10/25/2024 diphenhydrAMINE (BENADRYL) 5 0 mg/mL injection 25 mg 1 10/25/2024 hydrocortisone (ANUSOL-HC) 2 .5 % rectal cream 1 10/25/2024 HYDROmorphone (DILAUDID) 20 mg/100 mL (0.2 mg/mL) in 0.9% sodium chloride cartridge (premix) 1 10/25/2024 HYDROmorphone (DILAUDID) injection 0.2 mg 1 10/25/2024 ibuprofen (ADVIL,MOTRIN) tablet 600 mg 1 Lactated Ringer's (LR) bolus 1,000 mL 1 Lactated Ringer's (LR) infusion 1 xpafebg-uyhpo-svnsqur (MMR) 1,000-12,500 TCID50/0.5 mL live vaccine 0.5 mL 1 10/25/2024 naloxone (NARCAN) 0.4 mg/mL injection 0.04-0.4 mg 2 10/25/2024 ondansetron (ZOFRAN) injection 4 mg 1 10/25 ondansetron ODT (ZOFRAN-ODT) disintegrating tablet 4 mg 2 10/25/2024 oxytocin 30 unit/500 mL (0.0 6 unit/mL) in sodium chloride 0.9% (premix) solution 1 10/25/2024 polyethylene glycol (MIRALAX) packet 17 g 1 10/25/2024 prochlorperazine (COMPAZINE) injection 5 mg 1 10/25/2024 simethicone (MYLICON) chewab le tablet 80 mg 1 10/25/2024 sodium chloride 0.9% flush 0.5-20 mL 3 10/07 sodium chloride 0.9% irrigation 1 sterile water irrigation 1 10/25/2024 varicella zoster (VARIVAX) v accine - live 0.5 mL 1 10/25/2024 EKG Orders Without Results Count Last Ordered D ate First Ordered Date ECG 12-LEAD 1 10/27/2024 Nursing Count Last Ordered Date First Orde red Date BREAST PUMP TO BED 1 10/25/2024 ACOSTA CATHETER - DISCONTINUE 1 10/25/2024 NURSING COMMUNICATION 1 10/25/2024 Admission Count Last Ordered Date First Orde red Date ADMIT TO L&D INPATIENT 1 10/25/2024 Transfer Count Last Ordered Date First Orde red Date TRANSFER PATIENT TO NEW UNIT 2 10/25/2024 Discharge Count Last Ordered Date First Orde red Date DISCHARGE PATIENT 1 10/28/2024 CORE MEASURES Count Last Ordered Date First Ord ered Date REASON FOR NO VTE PROPHYLAXIS AT ADMISSION 1 10/25/2024 documented in this encounter Additional Health Concerns Infection Onset Date Last Indicated Resolved Time COVID: Suspected 10/28/2024 10/28/2024 10/28/2024 12:30 PM CDT documented as of this encounter Care Teams Brand Development Manager Relationship Specialty Start Date End Date No, Physician PCP - General 10/14/24 documented as of this encounter
[2024-10-29 16:28] LABS: Alanine Aminotransferase 69 U/L (6-35); Albumin Level 3.3 g/dL (3.5-5.1); Alkaline Phosphatase 115 U/L (38-126); Anion Gap 7 mmol/L (4-12); Aspartate Amino Transferase 78 U/L (14-36); Bilirubin,Total 0.3 mg/dL (0.2-1.3); Blood Urea Nitrogen 11 mg/dL (7-17); Calcium 8.9 mg/dL (8.4-10.2); Carbon Dioxide 25 mmol/L (22-30); Chloride 103 mmol/L (98-107); Estimated CRCL calculation 98 ml/min; Estimated Glomerular Filt Rate > 60; Glucose 89 mg/dL (65-110); Lipase 46 U/L (23-300); Potassium 3.9 mmol/L (3.4-5.0); Sodium 135 mmol/L (137-145)
[2024-10-29] MEDS: SODIUM CHLORIDE 0.9% IV 1,000 ML 999 ML IV CONT (16:32)
--- NOTE | 2024-10-29 16:35 | PC.NURSE ---
Patient able to ambulate with two person assist to bathroom. Urine sample obtained and sent to lab. Patient stated she has never had morphine but had a severe reaction to codeine. Pt states she has had dilaudid multiple times for pain and did not have any issues. RN spoke with MD about pain medication.
[2024-10-29 16:37] LABS: NT Pro B Type Natriuretic Pept 429 pg/mL (19.9-100)
[2024-10-29 16:40] LABS: BEDSIDEPREGUCG Negative (Negative)
[2024-10-29 16:44] LABS: Add Urine Microscopic? YES; Appearance Urine Clear (Clear); Bacteria Urine None Seen /hpf; Bilirubin Urine Negative (Negative); Blood Urine 3+ (Negative); Color Urine Yellow (Yellow); Glucose Urine UA Negative (Negative); Ketones Urine Negative (Negative); Leukocyte Esterase Ur Trace LEU/UL (Negative); Nitrate Urine Negative (Negative); Non Pathogenic Casts 0-2; Protein Urine Negative (Negative); RBC Urine >100 /hpf (0-2); Specific Grav Ur 1.013 (1.001-1.035); Squamous Epithelial Cell Urine Occasional /hpf (Few); Urobilinogen Urine 0.2 mg/dL (<2.0); WBC Urine 0-5 /hpf (0-3); pH Urine 7.5 (5.0-9.0)
[2024-10-29 16:56] LABS: Band Neutrophils Percent 1 % (0-6); Basophils Percent Manual 0 % (0-1); Eosinophils Absolute Manual 0.39 K/mm3 (0.02-0.50); Eosinophils Percent Manual 3 % (0-4); Lymphocytes Absolute Manual 2.39 K/mm3 (1.1-4.5); Lymphocytes Percent Manual 18 % (18-44); Monocytes Absolute Manual 1.19 K/mm3 (0.1-0.90); Monocytes Percent Manual 9 % (3-9); Neutrophils Absolute Manual 9.31 K/mm3 (1.7-7.2); Neutrophils Percent Manual 69 % (46-73); Nucleated Red Blood Cells 2 %; Platelet Estimate Adequate (Adequate); Total Cells Counted 100
[2024-10-29 16:57] LABS: Anisocytosis 1+; Atypical Lymphocytes Present; Polychromasia 1+; Schistocytes None Seen
[2024-10-29 17:51] VITALS: BP 141/87; PULSE 103; RESP 20; TEMP 36.7; O2SAT 100
--- NOTE | 2024-10-29 17:53 | PC.NURSE ---
Patient requesting ice chips. notified and patient given ice chips.
--- NOTE | 2024-10-29 18:24 | PC.NURSE ---
Patient called requesting to talk with the MD. MD notified.
--- NOTE | 2024-10-29 18:43 | PC.NURSE ---
Pt use call light to tell staff she is dressed and ready to go. Pt not up for DC yet and ERP went to talk with pt. Patient is agitated because CT showed constipation. Pt states I'm not constipated I went poop today and I pass gas. ERP also told pt he would have her DC ready after he speaks to post at [facility]
--- NOTE | 2024-10-29 19:17 | PC.NURSE ---
Pt refused to sign or take discharge papers. Removed own IV prior to staff getting into room.
== END 2024-10-29 19:20 | disposition home or self-care (01) ==
PROVIDERS: Emergency Provider Emergency Medicine
DX: O16.5 Unspecified maternal hypertension, complicating the puerperium (principal); O99.63 Diseases of the digestive system complicating the puerperium; K59.00 Constipation, unspecified; O90.89 Other complications of the puerperium, not elsewhere classified; R00.0 Tachycardia, unspecified; R16.0 Hepatomegaly, not elsewhere classified
CPT/HCPCS: 36415; 71046; 74177; 80053; 81001; 81025; 83690; 83880; 85025; 93005; 96361; 96374; 96375; 99284; J1171; J2405; J7030; Q9967